=== PATIENT | female | born 1950 | race Caucasian/White ===

== ENCOUNTER 2016-12-28 19:46 | Emergency (ER) | payer OTHER ==
[~2016-12-28] VITALS: Ht 167.6 cm; Wt 58.9 kg
[~2016-12-28 19:46] MED LIST: CYTM25 PO; CYTM5 PO
[2016-12-28 19:50] VITALS: TEMP 36.8; Ht 167.6 cm; Wt 58.9 kg
[2016-12-28] MEDS ORDERED: CYTM25 PO (20:30)
[2016-12-28] MEDS ORDERED: DIPHTHERIA/TETANUS/PERTUSSIS 0.5 ML SYR/VIAL IM. ONE (20:45)
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
[2016-12-28 21:10] LABS: URINE APPEARANCE CLEAR (CLEAR); URINE BILIRUBIN NEG (NEG); URINE COLOR YELLOW; URINE NITRITE NEG (NEG); URINE SPECIFIC GRAVITY 1.021 (1.000-1.030); UROBILINOGEN NEG (NEG); ZZUR CULT IF INDIC CLEAN CATCH NO
[2016-12-28 21:12] LABS: MANUAL MICROSCOPIC REQUIRED? NO; REVIEW REQ? NO
--- NOTE | 2016-12-28 21:14 | DIAGNOSTIC IMAGING REPORT ---
LEFT RIBS UNILATERAL WITH PA CHEST CLINICAL HISTORY: left rib pain COMPARISON STUDY: Chest 02/20/2011. FINDINGS: Nondisplaced left lateral seventh and eighth rib fractures. No pneumothorax. No pleural effusions. The lungs remain mildly hyperexpanded. No focal lung consolidations. The heart is normal in size. IMPRESSION: Nondisplaced left lateral seventh and eighth rib fractures. No pneumothorax. Electronically signed by: Afshin Theodore M.D. 12/28/2016 9:12 PM Dictated Date/Time: 12/28/2016 9:10 PM
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
[2016-12-28 21:47] VITALS: BP 134/76; PULSE 68; O2SAT 98
== END 2016-12-28 21:47 | disposition home or self-care (01) ==
LOC: C.EDB 19:47 → C.EDD 21:47
DX: S22.42XA Multiple fractures of ribs, left side, initial encounter for closed fracture (principal); S80.11XA Contusion of right lower leg, initial encounter; V43.52XA Car driver injured in collision with other type car in traffic accident, initial encounter; Y92.488 Other paved roadways as the place of occurrence of the external cause; Z85.850 Personal history of malignant neoplasm of thyroid; Z79.899 Other long term (current) drug therapy

== ENCOUNTER → 2017-03-24 | Outpatient (CLI) | payer OTHER ==
[~2017-03-24] MED LIST changes: -CYTM5 PO
[2017-03-27 15:55] LABS: THYROGLOBULIN 0.4 NG/ML (2.8-40.9)
== END | disposition home or self-care (01) ==
LOC: C.LAB 11:41
DX: C73 Malignant neoplasm of thyroid gland (principal); E89.0 Postprocedural hypothyroidism; E55.9 Vitamin D deficiency, unspecified

== ENCOUNTER → 2017-07-07 | Outpatient (CLI) | payer OTHER ==
[2017-07-07 12:15] LABS: BLOOD UREA NITROGEN 17 mg/dl (7-18); CALCIUM 8.3 mg/dl (8.5-10.1); CARBON DIOXIDE 35 mmol/L (21-32); CREATININE 0.91 mg/dl (0.60-1.20); GLUCOSE 91 mg/dl (70-99); PHOSPHORUS 4.3 mg/dl (2.5-4.9); POTASSIUM 3.7 mmol/L (3.5-5.1); SODIUM 140 mmol/L (136-145)
== END | disposition home or self-care (01) ==
LOC: C.LAB 10:46
DX: C73 Malignant neoplasm of thyroid gland (principal); E55.9 Vitamin D deficiency, unspecified; E89.0 Postprocedural hypothyroidism

== ENCOUNTER → 2018-03-20 | Outpatient (CLI) | payer OTHER ==
[2018-03-20 16:10] LABS: BLOOD UREA NITROGEN 17 mg/dl (7-18); CALCIUM 8.2 mg/dl (8.5-10.1); CARBON DIOXIDE 33 mmol/L (21-32); CREATININE 0.97 mg/dl (0.60-1.20); GLUCOSE 77 mg/dl (70-99); POTASSIUM 3.7 mmol/L (3.5-5.1); SODIUM 142 mmol/L (136-145)
== END | disposition home or self-care (01) ==
LOC: C.LAB 14:55
PROVIDERS: ATTEND Internal Medicine Endocrinology, Diabetes & Metabolism
DX: C73 Malignant neoplasm of thyroid gland (principal); E55.9 Vitamin D deficiency, unspecified

== ENCOUNTER 2022-10-03 17:05 | Inpatient (IN) ==
--- NOTE | 2022-10-03 17:35 | Emergency Department Note ---
History of Present Illness General Chief complaint: Arm Pain Stated complaint: R SHOULDER DOWN ARM,REF BY DOC,POSSIBLE BLOOD IVANIA Time Seen by Provider: 10/03/22 17:13 History of Present Illness This is a 72-year-old female who presents to the emergency department via private vehicle with complaints of "red and swollen right arm". Patient states that when she woke up this morning her right arm was swollen and red. She states it is not painful, rather just stiff. 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 She had a core biopsy done on the right side of the neck 8 days ago at [facility]. She is to have a PET scan on 10/06/22 to evaluate for metastasis. She called her doctor from [facility] today to report her arm symptoms and they advised her to come to the ED. She has had an intermittent dry cough that she has attributed to the cancer but reports no shortness of breath. The cough is increased with deep breaths. Over the last few weeks she has had some periods of prolonged immobilization during travel about an 8 to 9-hour trip to [facility] as well as a 5-hour drive to [facility]. Denies history of smoking. Denies history of clots or family history of clotting disorders. Denies fever, chest pain, sore throat, congestion, hemoptysis, numbness, tingling, back or neck pain. Home Medications Medication Instructions Recorded Confirmed Type calcitriol 0.25 mcg capsule 0.25 mcg PO BID 10/04/22 10/04/22 History ergocalciferol (vitamin D2) 1,250 1,250 mcg PO .EVERY 14 DAYS 10/04/22 10/04/22 History mcg (50,000 unit) capsule (Vitamin D2) levothyroxine 88 mcg tablet 88 mcg PO DAILYBB 10/04/22 10/04/22 History Allergies Allergy/AdvReac Type Severity Reaction Status Date / Time Penicillins AdvReac Mild UPSET Verified 10/04/22 00:02 STOMACH Past Med/Surg History Medical History Thyroid cancer Surgical History Hx of neck surgery Social History Smoking Status: Unknown if ever smoked Preferred Language: [place] Feels Safe at Home: Yes Review of Systems A total of 10 systems reviewed and were otherwise negative Physical Exam Vital Signs Vital Signs - 24 hr 10/03/22 17:09 10/03/22 20:17 10/03/22 20:17 Temperature 36.8 C Temperature Source Temporal Artery Scan Pulse Rate 99 H 81 Pulse Rate [Apical] 84 Pulse Rhythm Regular Pulse Rhythm [Apical] Regular Pulse Strength [Apical] Normal Respiratory Rate 16 17 16 Respiratory Effort / Characteristics Non-Labored Spontaneous Non-Labored Spontaneous Respiratory Depth Normal Normal Blood Pressure 126/77 Blood Pressure [Left Arm] 111/69 Blood Pressure Mean 93 Blood Pressure Mean [Left Arm] 83 Pulse Oximetry 97 98 96 Oxygen Delivery Method Room Air Room Air Room Air Sepsis Recent Fever Within 48 Hours No Sepsis New/Unexplained Change in Mental Status N/A Sepsis Action Taken by Nursing No Action Required 10/03/22 20:24 10/03/22 23:29 10/03/22 23:46 Temperature Temperature Source Pulse Rate 80 Pulse Rate [Apical] 78 78 Pulse Rhythm Pulse Rhythm [Apical] Pulse Strength [Apical] Respiratory Rate 22 20 Respiratory Effort / Characteristics Non-Labored Respiratory Depth Normal Blood Pressure Blood Pressure [Left Arm] 89/60 L 100/55 L Blood Pressure Mean Blood Pressure Mean [Left Arm] 69 70 Pulse Oximetry 99 99 Oxygen Delivery Method Room Air Room Air Sepsis Recent Fever Within 48 Hours Sepsis New/Unexplained Change in Mental Status Sepsis Action Taken by Nursing 10/04/22 00:26 10/04/22 00:00 Temperature Temperature Source Pulse Rate 82 Pulse Rate [Apical] 88 Pulse Rhythm Pulse Rhythm [Apical] Pulse Strength [Apical] Respiratory Rate 20 Respiratory Effort / Characteristics Non-Labored Respiratory Depth Normal Blood Pressure Blood Pressure [Left Arm] 104/63 Blood Pressure Mean Blood Pressure Mean [Left Arm] 76 Pulse Oximetry 96 Oxygen Delivery Method Room Air Sepsis Recent Fever Within 48 Hours Sepsis New/Unexplained Change in Mental Status Sepsis Action Taken by Nursing VITAL SIGNS - Vital signs and nursing notes were reviewed. Stable and afebrile. GENERAL - 72-year-old female appearing her stated age who is in no acute distress. Communicates well with provider and answers questions appropriately. SKIN - The right upper extremity is circumferentially edematous with an erythematous/ purplish hue. No break in the integument. HEAD - NC/AT. EYES - Sclera anicteric. NOSE - Midline and without cyanosis. No epistaxis or purulent drainage noted. MOUTH/OROPHARYNX - Without perioral cyanosis. NECK - Slight prominence of the soft tissues just superior to the right clavicle and anterior to the trapezius muscle. No nuchal rigidity. LUNGS - Chest wall symmetric without accessory muscle use, intercostals retractions, or central cyanosis. Normal vesicular breath sounds CTA B/L. No wheezes, rales, or rhonchi appreciated. CARDIAC - RRR with S1/S2. No murmur, rubs, or gallops appreciated. EXTREMITIES - No clubbing or peripheral cyanosis. Unilateral RUE edema. Remainder of extremities are WNL. R radial pulse WNL. Micro Lab Analyst strength WNL bilat. RUE warm and well perfused. +5/5 strength noted in UE/LE bilaterally. NEUROLOGIC - Cranial nerves II through XII grossly intact. PSYCH - A&O, and cooperates fully with examiner. Pt is very pleasant and interacts well with examiner. Course Administered Medications Heparin Sodium/Dextrose (Heparin Sodium/Dextrose) 25,000 units in 500 mls @ 19 mls/hr IV .Q24H [facility]; Protocol Stop: 11/02/22 22:14 Last Admin: 10/03/22 22:45 Dose: 950 units/hr, 19 mls/hr Documented By: LAURA Co-signed By: NAKIA Discontinued Medications Heparin Sodium (Porcine) (Heparin Sod (Porcine) 1000 Unit/Ml) 1 units IV NOW ONE Stop: 10/03/22 22:09 Last Admin: 10/03/22 22:45 Dose: 4,000 units Documented By: LAURA Co-signed By: NAKIA Ioversol (Optiray 320 500ml) 106 ml IV ONCE ONE Stop: 10/03/22 20:04 Last Admin: 10/03/22 20:03 Dose: 106 ml Documented By: LUISA Medical Decision Making Laboratory Data 10/03/22 19:50 10/03/22 18:36 Lab Results 10/03/22 10/03/22 10/03/22 Range/Units 18:36 18:36 18:36 WBC Cancelled RBC Cancelled Hgb Cancelled Hct Cancelled MCV Cancelled MCH Cancelled MCHC Cancelled RDW Std Deviation Cancelled RDW Coeff of Isaura Cancelled Plt Count Cancelled MPV Cancelled Immature Gran % (Auto) Cancelled Neut % (Auto) Cancelled Lymph % (Auto) Cancelled Wharton % (Auto) Cancelled Eos % (Auto) Cancelled Baso % (Auto) Cancelled Neut # (Auto) Cancelled Lymph # (Auto) Cancelled Wharton # (Auto) Cancelled Eos # (Auto) Cancelled Baso # (Auto) Cancelled Immature Gran # (Auto) Cancelled Absolute Nucleated RBC Cancelled Nucleated RBC % (auto) Cancelled Neutrophils % (Manual) Cancelled Band Neutrophils % Cancelled Lymphocytes % (Manual) Cancelled Prolymphocyte % Cancelled Reactive Lymphs % (Man) Cancelled Monocytes % (Manual) Cancelled Eosinophils % (Manual) Cancelled Basophils % (Manual) Cancelled Metamyelocytes % (Man) Cancelled Myelocytes % (Man) Cancelled Promyelocytes % (Man) Cancelled Blast Cells % (Manual) Cancelled Plasma Cell % (Manual) Cancelled Other Cells % Cancelled Nucleated RBC % Cancelled Neutrophils # (Manual) Cancelled Band Neutrophils # Cancelled Total Absolute Neuts Cancelled Lymphocytes # (Manual) Cancelled Prolymphocyte # Cancelled Reactive Lymphs # Cancelled Total Abs Lymphocytes Cancelled Monocytes # (Manual) Cancelled Eosinophils # (Manual) Cancelled Basophils # (Manual) Cancelled Metamyelocytes # (Man) Cancelled Myelocytes # (Manual) Cancelled Promyelocytes # (Man) Cancelled Blast Cells # (Man) Cancelled Plasma Cell # (Manual) Cancelled Other Cells # Cancelled Nucleated RBCs # (Man) Cancelled Hypersegmented Neuts Cancelled Hyposegmented Neuts Cancelled Hypogranular Neuts Cancelled Large Granular Lymphs Cancelled # Lrg Granular Lymphs Cancelled Hairy Cells Cancelled Smudge Cells Cancelled Toxic Granulation Cancelled Toxic Vacuolation Cancelled Dohle Bodies Cancelled Yaw Rods Cancelled Platelet Estimate Cancelled Hypogranular Platelets Cancelled Giant Platelets Cancelled Platelet Satelliting Cancelled RBC Morphology Cancelled Polychromasia Cancelled Hypochromasia Cancelled Poikilocytosis Cancelled Basophilic Stippling Cancelled Anisocytosis Cancelled Microcytosis Cancelled Macrocytosis Cancelled Spherocytes Cancelled Pappenheimer Bodies Cancelled Sickle Cells Cancelled Target Cells Cancelled Tear Drop Cells Cancelled Ovalocytes Cancelled Stomatocytes Cancelled [place] Bodies Cancelled Echinocytes Cancelled Acanthocytes (Spur) Cancelled Rouleaux Cancelled RBC Agglutinates Cancelled Schistocytes Cancelled Sezary Cell Cancelled PT 10.6 (9.0-12.0) Seconds INR 1.0 (0.9-1.1) APTT 21.2 (21.0-31.0) Seconds PTT Ratio 0.8 Sodium 141 (136-145) mmol/L Potassium 3.6 (3.5-5.1) mmol/L Chloride 101 (98-107) mmol/L Carbon Dioxide 36 H (21-32) mmol/L Anion Gap 4 (3-11) BUN 16 (6-23) mg/dl Creatinine 0.92 (0.6-1.2) mg/dl Est Cr Clr Drug Dosing 46.9 ml/min Est GFR ( Amer) 72.1 ml/min Est GFR (Non-Af Amer) 62.2 ml/min BUN/Creatinine Ratio 17.4 (10-20) Glucose 98 (70-99(Fasting)) mg/dl Calcium 8.7 (8.5-10.1) mg/dl Total Bilirubin 0.9 (0.2-1.0) mg/dl AST 16 (13-39) U/L ALT 10 (7-52) U/L Alkaline Phosphatase 88 (34-104) U/L Troponin I High Sens 3.7 (0-14) pg/ml Total Protein 7.8 (6.0-8.3) gm/dl Albumin 4.6 (3.4-5.0) gm/dl Globulin 3.2 (2.5-4.0) gm/dl Albumin/Globulin Ratio 1.4 (0.9-2) SARS-CoV-2, RNA, NAAT (NEGATIVE) Blood Parasites ID Cancelled 10/03/22 10/03/22 Range/Units 19:50 20:15 WBC 5.81 RBC 4.44 Hgb 14.0 Hct 41.3 MCV 93.0 MCH 31.5 MCHC 33.9 RDW Std Deviation 43.1 RDW Coeff of Isaura 12.6 Plt Count 159 MPV 10.4 Immature Gran % (Auto) 0.2 Neut % (Auto) 71.5 Lymph % (Auto) 20.5 Wharton % (Auto) 7.2 Eos % (Auto) 0.3 Baso % (Auto) 0.3 Neut # (Auto) 4.15 Lymph # (Auto) 1.19 L Wharton # (Auto) 0.42 Eos # (Auto) 0.02 Baso # (Auto) 0.02 Immature Gran # (Auto) 0.01 Absolute Nucleated RBC Nucleated RBC % (auto) Neutrophils % (Manual) Band Neutrophils % Lymphocytes % (Manual) Prolymphocyte % Reactive Lymphs % (Man) Monocytes % (Manual) Eosinophils % (Manual) Basophils % (Manual) Metamyelocytes % (Man) Myelocytes % (Man) Promyelocytes % (Man) Blast Cells % (Manual) Plasma Cell % (Manual) Other Cells % Nucleated RBC % Neutrophils # (Manual) Band Neutrophils # Total Absolute Neuts Lymphocytes # (Manual) Prolymphocyte # Reactive Lymphs # Total Abs Lymphocytes Monocytes # (Manual) Eosinophils # (Manual) Basophils # (Manual) Metamyelocytes # (Man) Myelocytes # (Manual) Promyelocytes # (Man) Blast Cells # (Man) Plasma Cell # (Manual) Other Cells # Nucleated RBCs # (Man) Hypersegmented Neuts Hyposegmented Neuts Hypogranular Neuts Large Granular Lymphs # Lrg Granular Lymphs Hairy Cells Smudge Cells Toxic Granulation Toxic Vacuolation Dohle Bodies Yaw Rods Platelet Estimate Hypogranular Platelets Giant Platelets Platelet Satelliting RBC Morphology Polychromasia Hypochromasia Poikilocytosis Basophilic Stippling Anisocytosis Microcytosis Macrocytosis Spherocytes Pappenheimer Bodies Sickle Cells Target Cells Tear Drop Cells Ovalocytes Stomatocytes [place] Bodies Echinocytes Acanthocytes (Spur) Rouleaux RBC Agglutinates Schistocytes Sezary Cell PT (9.0-12.0) Seconds INR (0.9-1.1) APTT (21.0-31.0) Seconds PTT Ratio Sodium (136-145) mmol/L Potassium (3.5-5.1) mmol/L Chloride (98-107) mmol/L Carbon Dioxide (21-32) mmol/L Anion Gap (3-11) BUN (6-23) mg/dl Creatinine (0.6-1.2) mg/dl Est Cr Clr Drug Dosing ml/min Est GFR ( Amer) ml/min Est GFR (Non-Af Amer) ml/min BUN/Creatinine Ratio (10-20) Glucose (70-99(Fasting)) mg/dl Calcium (8.5-10.1) mg/dl Total Bilirubin (0.2-1.0) mg/dl AST (13-39) U/L ALT (7-52) U/L Alkaline Phosphatase (34-104) U/L Troponin I High Sens (0-14) pg/ml Total Protein (6.0-8.3) gm/dl Albumin (3.4-5.0) gm/dl Globulin (2.5-4.0) gm/dl Albumin/Globulin Ratio (0.9-2) SARS-CoV-2, RNA, NAAT NEGATIVE (NEGATIVE) Blood Parasites ID Imaging Data Radiologist's Impression: Venous Doppler Study 10/03/22 17:30 ULTRASOUND RIGHT UPPER EXTREMITY VENOUS CLINICAL HISTORY: Right arm pain and swelling. Erythema. COMPARISON STUDY: No priors. TECHNIQUE: Real-time, grayscale, and color Doppler sonography of the deep veins of the right upper extremity is performed. Compression and augmentation were utilized. FINDINGS: There is nearly occlusive to occlusive deep venous thrombosis identified in the right subclavian and axillary veins. The brachial veins and right internal jugular vein are patent and normally compressible. The cephalic and basilic veins are clear. The visualized radial and ulnar veins are patent. IMPRESSION: There is nearly occlusive to occlusive deep venous thrombosis seen in the right subclavian and axillary veins. ACT 112: Negative or not required by law. Electronically signed by: Burton Rothman M.D. 10/03/2022 6:[address] 10/03/22 18:21 Exam(s): CT NECK With Contrast EXAM: CT Neck With Intravenous Contrast CLINICAL HISTORY: Reason for exam: R arm edema. Thyroid carcinoma.. TECHNIQUE: Axial computed tomography images of the neck with intravenous contrast. Automated exposure control was utilized for the study. A dose lowering technique was utilized adhering to the principles of ALARA. CONTRAST: Contrast must be dictated COMPARISON: None. FINDINGS: Oropharynx: Unremarkable. No significant tonsillar enlargement. No peritonsillar abscess. Hypopharynx: Unremarkable. Larynx: Unremarkable. Normal epiglottis. Trachea: Patent trachea. Retropharyngeal space: Unremarkable. Submandibular/parotid glands: Unremarkable. Glands are normal in size. Thyroid: Not visualized suggestive of prior resection. Bones/joints: Degenerative disease of the spine with normal cervical lordosis. No acute fracture. Soft tissues: At the level of the right paratracheal region there is a soft tissue density with ill-defined margins extending to the paratracheal soft tissues, right anterolateral prevertebral region and right supraclavicular space. This measures approximately 2.9 x 3.1 cm. Differential diagnosis includes recurrent carcinoma versus postoperative inflammatory process. This is noted to the level of the right medial supraclavicular region. Vasculature: Nonvisualized right-sided jugular vein from presumed prior surgical resection. Normal aortic arch and origin of great vessels. Normal bilateral carotid and vertebral arteries. Normal bilateral subclavian arteries. Lymph nodes: There is a small right-sided lymph node in the lower neck just posterior to the sternocleidomastoid muscle measuring 8.5 mm. No severe lymphadenopathy seen. Sinuses: Minimal mucosal thickening of bilateral maxillary sinuses, likely sequela of prior sinusitis. Lung apices: Unremarkable as visualized. IMPRESSION: 1. Questionable recurrent neoplasm involving the right paratracheal region versus postoperative inflammatory changes. If indicated, these findings may be further assessed with MRI of the neck with intravenous contrast or PET scan evaluation in the nonacute setting. 2. Status post right jugular vein resection otherwise normal CT angiogram of the neck arteries with no severe stenosis, occlusion or dissection noted. Electronically signed by: Tomasa West MD 10/03/22 21:31 PM Chest CTA 10/03/22 18:50 Exam(s): CTA CHEST EXAM: CT Angiography Chest With Intravenous Contrast CLINICAL HISTORY: Reason for exam: RUE DVT, cough with inspiration. TECHNIQUE: Axial computed tomographic angiography images of the chest with intravenous contrast. Automated exposure control was utilized for the study. A dose lowering technique was utilized adhering to the principles of ALARA. MIP reconstructed images were created and reviewed. COMPARISON: None. FINDINGS: Pulmonary arteries: Unremarkable. No pulmonary embolism. Aorta: No acute findings. No thoracic aortic aneurysm. Lungs: Left lower lobe atelectasis. Pleural space: Mild biapical pleural thickening with subpleural scarring versus atelectasis. Remainder of the lung bases are clear. No significant effusion. No pneumothorax. Heart: Unremarkable. No cardiomegaly. No significant pericardial effusion. No evidence of RV dysfunction. Bones/joints: Degenerative disease of the spine. No acute fracture. No dislocation. Soft tissues: Nonspecific soft tissue density in the lower neck just above the supraclavicular region. This is described in detail in the accompanying CT of the neck report. Lymph nodes: Unremarkable. No enlarged lymph nodes. Liver: Enhancing lesion with peripheral nodular enhancement within the anterior aspect of the left liver lobe measuring 1.3 cm, likely small hemangioma. Gallbladder and bile ducts: Contracted gallbladder. Otherwise unremarkable biliary system. IMPRESSION: Minimal atelectasis otherwise no acute cardiopulmonary disease. Electronically signed by: Tomasa West MD 10/03/22 21:19 PM [facility] Narrative Patient was seen and evaluated as above in room D05. I did review pertinent previous visits and patient history. After obtaining a thorough history and physical examination the above work up was performed. Patient presents to the ED today for evaluation of atraumatic right upper extremity edema and erythema. On examination there is more of a purplish hue to the right upper extremity. She is well-perfused with intact right radial pulse. Micro Lab Analyst strength within normal limits. Right upper extremity is warm and not cool to the touch. She is able to appreciate light touch throughout the right upper extremity without defi cit. Preserved active range of motion of the right upper extremity. No chest pain or shortness of breath. However, when the patient does inhale she coughs. Options of care were discussed with the patient. IV access was established. Labs were drawn. Right upper extremity Doppler was obtained. There is a nearly occlusive to occlusive DVT seen in the right subclavian and axillary veins. This does clinically correlate with the patient's right upper extremity examination. Labs reveal no leukocytosis or concerning anemia. No emergent metabolic disturbance. Coags are normal. Troponin is within normal limits. COVID testing negative. With the patient having the right upper extremity DVT and also cough with inspiration I found it reasonable to proceed with CTA of the chest but also IV contrasted neck CT to evaluate for any compressive etiology to the patient's right upper extremity DVT noting malignancy near that region and to further vasculature in that region. Results of these are as above. I did call the radiologist to review the patient's clinical presentation and findings on ultrasound. At this time with the patient having a right upper extremity DVT I do believe that anticoagulants are indicated. I thoroughly discussed benefit versus risk of anticoagulation with the patient. I did have a thorough discussion regarding options of care as well as benefit versus risk of anticoagulation with the patient and at bedside prior to initiation of anticoagulation. I answered all of their questions. I also discussed this with the attending physician. At this time it is felt that the benefit of anticoagulation outweighs risk. We will proceed with IV heparin. Patient denies any recent trauma or injury. I do believe that she is far enough out from her biopsy date from a bleeding standpoint. No headaches. She denies any GI bleeding or history of GI bleeding. At this time no contraindications to anticoagulations have been identified. I do believe that she would benefit from inpatient management. Case discussed with the hospitalist service. Please refer to further documentation regarding her stay. While in the department, I personally reevaluated the patient several times and each time the patient was found to be resting comfortably. GCS: 15 In the evaluation and treatment of this patient the following differential diagnoses were entertained: DVT, cellulitis, SVC syndrome, thoracic outlet syndrome, among others. Impression & Plan Acute deep vein thrombosis (DVT) of right upper extremity, Edema of right upper extremity Discharge Plan Visit Data Chief Complaint: Arm Pain Stated Complaint: R SHOULDER DOWN ARM,REF BY DOC,POSSIBLE BLOOD IVANIA ED Provider: Elia Mireles ED Midlevel Provider: Juan Yoder Discharge Problem: Acute deep vein thrombosis (DVT) of right upper extremity, Edema of right upper extremity Patient Disposition: Admitted As Inpatient Condition: Good Forms Stand Alone Forms: [email or web address] Prescriptions Prescriptions: No Action levothyroxine 88 mcg tablet 88 mcg PO DAILYBB ergocalciferol (vitamin D2) [Vitamin D2] 1,250 mcg (50,000 unit) capsule 1,250 mcg PO .EVERY 14 DAYS calcitriol 0.25 mcg capsule 0.25 mcg PO BID Referrals Referrals: Jb Currie Jr, DO [Physician] -
--- NOTE | 2022-10-03 18:39 | Ultrasound Report ---
ULTRASOUND RIGHT UPPER EXTREMITY VENOUS CLINICAL HISTORY: Right arm pain and swelling. Erythema. COMPARISON STUDY: No priors. TECHNIQUE: Real-time, grayscale, and color Doppler sonography of the deep veins of the right upper ex tremity is performed. Compression and augmentation were utilized. FINDINGS: There is nearly occlusive to occlusive deep venous thrombosis identified in the right subcl shahab and axillary veins. The brachial veins and right internal jugular vein are patent and normally compressible. The cephalic and basilic veins are clear. The visualized radial and ulnar veins are pa tent. IMPRESSION: There is nearly occlusive to occlusive deep venous thrombosis seen in the right subclavia n and axillary veins. ACT 112: Negative or not required by law. Electronically signed by: Burton Rothman M.D. 10/03/2022 6:37 PM
[2022-10-03 19:21] LABS: Albumin Globulin Ratio 1.4 (0.9-2); Albumin Level 4.6 gm/dl (3.4-5.0); BUN Creatinine Ratio 17.4 (10-20); Bilirubin,Total 0.9 mg/dl (0.2-1.0); Calcium 8.7 mg/dl (8.5-10.1); Creatinine Clr Calc Pharmacy 46.9 ml/min; Est GFR (African American) 72.1 ml/min; Est GFR (Non-African American) 62.2 ml/min; Globulin 3.2 gm/dl (2.5-4.0); Potassium 3.6 mmol/L (3.5-5.1); Total Protein 7.8 gm/dl (6.0-8.3)
[2022-10-03 19:39] LABS: Partial Thromboplastin Ratio 0.8; Partial Thromboplastin Time 21.2 Seconds (21.0-31.0); Prothrombin Time 10.6 Seconds (9.0-12.0)
[2022-10-03] MEDS ORDERED: OPTIRAY 320 500ml IV ONE (20:03)
[2022-10-03 20:07] LABS: Basophils # (auto) 0.02 K/uL (0-0.2); Basophils % (auto) 0.3 %; Eosinophils # (auto) 0.02 K/uL (0-0.50); Eosinophils % (auto) 0.3 %; Hematocrit (blood only) 41.3 % (37.0-47.0); Immature Granulocytes # (auto) 0.01 K/uL (0.01-0.20); Immature Granulocytes % (auto) 0.2 %; Lymphocytes # (auto) 1.19 K/uL (1.2-3.4); Lymphocytes % (auto) 20.5 %; Mean Corpuscular Hemoglobin 31.5 pg (25.0-34.0); Mean Corpuscular Hgb Conc 33.9 g/dL (32.0-36.0); Mean Platelet Volume 10.4 fL (9.4-12.4); Monocytes # (auto) 0.42 K/uL (0.11-0.59); Monocytes % (auto) 7.2 %; Neutrophils # (auto) 4.15 K/uL (1.40-6.50); Neutrophils % (auto) 71.5 %; Platelet Count 159 K/uL (130-400); RDW Coefficient of Variation 12.6 % (11.5-14.5); RDW Standard Deviation 43.1 fL (36.4-46.3); Red Blood Count 4.44 M/uL (4.20-5.40); White Blood Count 5.81 K/ul (4.8-10.8)
[2022-10-03 20:20] LABS: Troponin I High Sensitivity 3.7 pg/ml (0-14)
--- NOTE | 2022-10-03 21:20 | CT Scan Report ---
Exam(s): CTA CHEST EXAM: CT Angiography Chest With Intravenous Contrast CLINICAL HISTORY: Reason for exam: RUE DVT, cough with inspiration. TECHNIQUE: Axial computed tomographic angiography images of the chest with intravenous contrast. Automated exposure control was utilized for the study. A dose lowering technique was utilized adhering to the principles of ALARA. MIP reconstructed images were created and reviewed. COMPARISON: None. FINDINGS: Pulmonary arteries: Unremarkable. No pulmonary embolism. Aorta: No acute findings. No thoracic aortic aneurysm. Lungs: Left lower lobe atelectasis. Pleural space: Mild biapical pleural thickening with subpleural scarring versus atelectasis. Remainder of the lung bases are clear. No significant effusion. No pneumothorax. Heart: Unremarkable. No cardiomegaly. No significant pericardial effusion. No evidence of RV dysfunction. Bones/joints: Degenerative disease of the spine. No acute fracture. No dislocation. Soft tissues: Nonspecific soft tissue density in the lower neck just above the supraclavicular region. This is described in detail in the accompanying CT of the neck report. Lymph nodes: Unremarkable. No enlarged lymph nodes. Liver: Enhancing lesion with peripheral nodular enhancement within the anterior aspect of the left liver lobe measuring 1.3 cm, likely small hemangioma. Gallbladder and bile ducts: Contracted gallbladder. Otherwise unremarkable biliary system. IMPRESSION: Minimal atelectasis otherwise no acute cardiopulmonary disease. Electronically signed by: Tomasa West MD 10/03/22 21:19 PM
--- NOTE | 2022-10-03 21:32 | CT Scan Report ---
Exam(s): CT NECK With Contrast EXAM: CT Neck With Intravenous Contrast CLINICAL HISTORY: Reason for exam: R arm edema. Thyroid carcinoma.. TECHNIQUE: Axial computed tomography images of the neck with intravenous contrast. Automated exposure control was utilized for the study. A dose lowering technique was utilized adhering to the principles of ALARA. CONTRAST: Contrast must be dictated COMPARISON: None. FINDINGS: Oropharynx: Unremarkable. No significant tonsillar enlargement. No peritonsillar abscess. Hypopharynx: Unremarkable. Larynx: Unremarkable. Normal epiglottis. Trachea: Patent trachea. Retropharyngeal space: Unremarkable. Submandibular/parotid glands: Unremarkable. Glands are normal in size. Thyroid: Not visualized suggestive of prior resection. Bones/joints: Degenerative disease of the spine with normal cervical lordosis. No acute fracture. Soft tissues: At the level of the right paratracheal region there is a soft tissue density with ill-defined margins extending to the paratracheal soft tissues, right anterolateral prevertebral region and right supraclavicular space. This measures approximately 2.9 x 3.1 cm. Differential diagnosis includes recurrent carcinoma versus postoperative inflammatory process. This is noted to the level of the right medial supraclavicular region. Vasculature: Nonvisualized right-sided jugular vein from presumed prior surgical resection. Normal aortic arch and origin of great vessels. Normal bilateral carotid and vertebral arteries. Normal bilateral subclavian arteries. Lymph nodes: There is a small right-sided lymph node in the lower neck just posterior to the sternocleidomastoid muscle measuring 8.5 mm. No severe lymphadenopathy seen. Sinuses: Minimal mucosal thickening of bilateral maxillary sinuses, likely sequela of prior sinusitis. Lung apices: Unremarkable as visualized. IMPRESSION: 1. Questionable recurrent neoplasm involving the right paratracheal region versus postoperative inflammatory changes. If indicated, these findings may be further assessed with MRI of the neck with intravenous contrast or PET scan evaluation in the nonacute setting. 2. Status post right jugular vein resection otherwise normal CT angiogram of the neck arteries with no severe stenosis, occlusion or dissection noted. Electronically signed by: Tomasa West MD 10/03/22 21:31 PM
[2022-10-03] MEDS ORDERED: Heparin IV Adult Wt-Based Standard WITH Bolus Protocol IV STA (21:53)
[2022-10-03] MEDS ORDERED: HEPARIN SOD (PORCINE) 1000 UNIT/ML IV ONE (22:08)
[2022-10-03] MEDS ORDERED: HEPARIN SODIUM/DEXTROSE 25,000 UNITS/500 ML BAG IV SCH (22:15)
[2022-10-04] MEDS ORDERED: POLYETHYLENE (MIRALAX) 17 GM PACK PO PRN (04:44)
[2022-10-04] MEDS ORDERED: ACETAMINOPHEN 325 MG TAB PO PRN (04:44)
--- NOTE | 2022-10-04 05:23 | History and Physical Report ---
DATE OF ADMISSION: 10/04/2022. CHIEF COMPLAINT: Right arm swelling and pain. HISTORY OF PRESENT ILLNESS: This is a 72-year-old female with past medical history significant for thyroid cancer, following up with [facility], had thyroidectomy, history of postprocedure hypothyroidism, hyperparathyroidism, iron deficiency anemia, who presents with right upper extremity swelling. When she woke up in the morning, she noticed swelling in the right upper extremity and came here and the imaging studies are showing nearly occlusive to occlusive deep vein thrombosis in the right subclavian and axillary veins. CT of soft tissues of neck is showing questionable recurrent neoplasm involving the right paratracheal region versus postoperative inflammatory changes. The patient states she had four thyroid neck surgeries, first was in early 1999 when it was benign, and again had three more surgeries in 2008, 2012, and 2013. In 2013, was done in [facility] and since she is following with [facility]. 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 Currently resting comfortably and hemodynamically stable. She says she used to have nausea earlier, but that has resolved and she has some on and off cough. Appetite is not that great. She says no difficulty swallowing when she is eating. Denies any blurred visions. Currently, no headache, no runny nose, no sore throat. Denies any chest pain. When she takes deep breaths, she has some cough. No abdominal pain. Normal bowel and bladder movements. Denies any blood in the stools. No swelling in the legs. ALLERGIES: PENICILLINS. PAST MEDICAL HISTORY: As mentioned above. PAST SURGICAL HISTORY: Colonoscopy with biopsy, mole removed from the leg, removal of thyroid lesion. MEDICATIONS: Currently taking calcitriol 0.25 mcg p.o. b.i.d., vitamin D 1250 mcg p.o. daily, levothyroxine 88 mcg p.o. daily. FAMILY HISTORY: Significant for father had heart attack at 86; brother had prostate cancer; son has thyroid cancer; brother has liposarcoma; uncle has pancreatic cancer; maternal uncle has heart disorder. SOCIAL HISTORY: , no smoking. Alcohol occasional. No drug use. REVIEW OF SYSTEMS: As per HPI. Rest of the review of systems is negative. PHYSICAL EXAMINATION: GENERAL: The patient is thin and frail, not in acute distress. VITAL SIGNS: Temperature 36.8, pulse 86, respiratory rate 20, blood pressure 89/63, oxygen 98% on room air. HEENT: Pupils equal, round and reactive to light. Oral mucosa moist. NECK: No JVD, no neck masses. CARDIOVASCULAR: S1 and S2 heard. Regular rate and rhythm. No murmur, no gallop. RESPIRATORY SYSTEM: Normal AP diameter. No accessory muscle use. No wheezing, no crackles. ABDOMEN: Soft, bowel sounds present, nontender, no distention. CENTRAL NERVOUS SYSTEM: Alert and oriented. Speech is clear. No facial droop. Insight is okay, obeys commands. Moves extremities. EXTREMITIES: Right upper extremity is swollen up to the elbow region. No obvious tenderness seen. LABORATORY DATA: WBC 5.8, hemoglobin 14, hematocrit 41.3, platelets 159. PT 10.6, INR 1, APTT 21.2. Sodium 141, potassium 3.6, chloride 101, bicarbonate 36, BUN 16, creatinine 0.9, serum glucose 98, calcium 8.7, total bilirubin 0.9, AST 16, ALT 10, alkaline phosphatase 88. Troponin I high sensitivity 3.7. SARS-CoV-2 rapid test negative. IMAGING DATA: CTA chest, mild atelectasis, otherwise no acute cardiopulmonary disease. Soft tissue neck CT with IV contrast, questionable recurrent neoplasm involving the right paratracheal region versus postoperative inflammatory change. If indicated, these findings may be further assessed with MRI of the neck with intravenous contrast or PET scan evaluation in a nonacute setting, status post right jugular vein resection. Otherwise, normal CT angiogram of the neck arteries with no severe stenosis, occlusion, or dissection noted. Venous Doppler of the right upper extremity, nearly occlusive to occlusive deep vein thrombosis seen in the right subclavian and axillary veins. ASSESSMENT AND PLAN: This is a 72-year-old female who presents with right upper extremity swelling and found to have deep venous thrombosis. 1. Right upper extremity deep venous thrombosis: Started on IV heparin. For now, we will monitor in the hospital. 2. History of recurrent thyroid cancer: Status post surgery. Seems recurrence. Followup PET scan with [facility]. 3. Postsurgical hypothyroidism: Continue Synthroid. 4. Deep venous thrombosis prophylaxis: On IV heparin. DISPOSITION: Monitor in the hospital. Expect to discharge home and follow with her family doctor and [facility]. Job ID: [id number] KAYLI
[2022-10-04 06:20] LABS: Basophils # (auto) 0.01 K/uL (0-0.2); Basophils % (auto) 0.2 %; Eosinophils # (auto) 0.03 K/uL (0-0.50); Eosinophils % (auto) 0.5 %; Hematocrit (blood only) 41.5 % (37.0-47.0); Hemoglobin 13.8 g/dl (12.0-16.0); Immature Granulocytes # (auto) 0.01 K/uL (0.01-0.20); Immature Granulocytes % (auto) 0.2 %; Lymphocytes # (auto) 1.57 K/uL (1.2-3.4); Lymphocytes % (auto) 28.6 %; Mean Corpuscular Hemoglobin 31.7 pg (25.0-34.0); Mean Corpuscular Hgb Conc 33.3 g/dL (32.0-36.0); Mean Corpuscular Volume 95.2 fL (80.0-100.0); Mean Platelet Volume 10.5 fL (9.4-12.4); Monocytes # (auto) 0.38 K/uL (0.11-0.59); Monocytes % (auto) 6.9 %; Neutrophils # (auto) 3.48 K/uL (1.40-6.50); Neutrophils % (auto) 63.6 %; Platelet Count 157 K/uL (130-400); RDW Coefficient of Variation 12.7 % (11.5-14.5); RDW Standard Deviation 44.2 fL (36.4-46.3); Red Blood Count 4.36 M/uL (4.20-5.40); White Blood Count 5.48 K/ul (4.8-10.8)
[2022-10-04 06:23] LABS: BUN Creatinine Ratio 16.9 (10-20); Calcium 8.3 mg/dl (8.5-10.1); Creatinine Clr Calc Pharmacy 48.4 ml/min; Est GFR (Non-African American) 64.7 ml/min; Magnesium 2.2 mg/dl (1.7-2.4); Potassium 3.5 mmol/L (3.5-5.1)
[2022-10-04] MEDS ORDERED: LEVOTHYROXINE SODIUM 88 MCG TABLET PO SCH ×2 (06:30→10:30)
[2022-10-04 06:58] LABS: Partial Thromboplastin Ratio > 5.1
[2022-10-04 07:13] LABS: Partial Thromboplastin Time > 139.0 Seconds (21.0-31.0)
[2022-10-04] MEDS ORDERED: Nursing to Pharmacy Communication SCH (07:30)
[2022-10-04] MEDS ORDERED: CALCITRIOL 0.25 MCG CAPSULE PO SCH (09:00)
[2022-10-04 10:15] LABS: Partial Thromboplastin Ratio 2.1
[2022-10-04 10:30] LABS: Partial Thromboplastin Time 56.7 Seconds (21.0-31.0)
[2022-10-04] MEDS ORDERED: GADOBUTROL 65ML VIAL IV ONE (13:49)
--- NOTE | 2022-10-04 14:06 | Magnetic Resonance Report ---
MRI OF THE BRAIN COMBO CLINICAL HISTORY: Thyroid cancer. Metastatic survey. COMPARISON STUDY: No priors. TECHNIQUE: MRI of the brain was performed utilizing various T1 and T2-weighted sequences in the axial , sagittal, and coronal planes. Contrast-enhanced sequences were acquired following the administratio n of 5.5 cc of Gadavist. FINDINGS: Brain parenchyma: There is age-related involutional change noting mild subcortical and periventricula r microangiopathic disease. There is no hemorrhage or mass effect. There is no restricted diffusion t o suggest acute ischemia. No enhancing mass lesion is identified on the postcontrast images. Meyer-whi te matter differentiation is preserved. No extra-axial fluid collection is seen. The cerebellar tonsi ls are normal in configuration. Ventricles, sulci, and cisterns: Prominent secondary to involutional change. Pituitary and sella: Unremarkable. Intracranial vasculature: Normal flow voids are maintained at the skull base. Orbits: The bony orbits are grossly intact. Orbital contents are normal in appearance. Sinuses and mastoids: Clear. Calvarium: Unremarkable. Cervical cord: Partially visualized cervical spinal cord is normal in morphology and signal intensity . Soft tissues: A 13 mm enhancing soft tissue lesion is suggested within or adjacent to the left paroti d gland on coronal image #11. IMPRESSION: 1. No acute intracranial abnormality is identified. 2. Specifically, there is no evidence of intracranial metastatic disease. 3. Question a 13 mm enhancing soft tissue lesion within or adjacent to the left parotid gland. Ultras ound correlation is recommended. ACT 112: Negative or not required by law. Electronically signed by: Burton Rothman M.D. 10/04/2022 2:04 PM
[2022-10-04] MEDS ORDERED: APIXABAN 5 MG TABLET PO STA (15:11)
[2022-10-04] MEDS ORDERED: HEPARIN STOP ORDER ONE (15:15)
--- NOTE | 2022-10-04 15:21 | Discharge Summary ---
Discharge Summary Date of Service October 04, 2022 Notes For Next Care Provider Patient diagnosed with nearly occlusive right subclavian and axillary DVT. Started on IV heparin and transitioned to Eliquis at discharge. Duration of anticoagulation will need to be determined. MRI obtained to r/o any brain mets which was negative, but did reveal 13mm lesion adjacent to L parotid. This may need further Ultrasound evaluation. Pt will follow up at [facility] for PET CT on 10/06. Medication Changes From Visit Started on Eliquis 10 mg twice daily for 7 days and then 5 mg twice daily. Duration of anticoagulation will need to be determined by primary care provider or oncologist. Admission HPI Per Admitting Provider HISTORY OF PRESENT ILLNESS: This is a 72-year-old female with past medical history significant for thyroid cancer, following up with [facility], had thyroidectomy, history of postprocedure hypothyroidism, hyperparathyroidism, iron deficiency anemia, who presents with right upper extremity swelling. When she woke up in the morning, she noticed swelling in the right upper extremity and came here and the imaging studies are showing nearly occlusive to occlusive deep vein thrombosis in the right subclavian and axillary veins. CT of soft tissues of neck is showing questionable recurrent neoplasm involving the right paratracheal region versus postoperative inflammatory changes. The patient states she had four thyroid neck surgeries, first was in early 1999 when it was benign, and again had three more surgeries in 2008, 2012, and 2013. In 2013, was done in [facility] and since she is following with [facility]. Then again she says in 2020, her labs showed the cancer is coming back and she recently had biopsy done in 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 Currently resting comfortably and hemodynamically stable. She says she used to have nausea earlier, but that has resolved and she has some on and off cough. Appetite is not that great. She says no difficulty swallowing when she is eating. Denies any blurred visions. Currently, no headache, no runny nose, no sore throat. Denies any chest pain. When she takes deep breaths, she has some cough. No abdominal pain. Normal bowel and bladder movements. Denies any blood in the stools. No swelling in the legs. Admission Exam Per Admitting Provider PHYSICAL EXAMINATION: GENERAL: The patient is thin and frail, not in acute distress. VITAL SIGNS: Temperature 36.8, pulse 86, respiratory rate 20, blood pressure 89/63, oxygen 98% on room air. HEENT: Pupils equal, round and reactive to light. Oral mucosa moist. NECK: No JVD, no neck masses. CARDIOVASCULAR: S1 and S2 heard. Regular rate and rhythm. No murmur, no gallop. RESPIRATORY SYSTEM: Normal AP diameter. No accessory muscle use. No wheezing, no crackles. ABDOMEN: Soft, bowel sounds present, nontender, no distention. CENTRAL NERVOUS SYSTEM: Alert and oriented. Speech is clear. No facial droop. Insight is okay, obeys commands. Moves extremities. EXTREMITIES: Right upper extremity is swollen up to the elbow region. No obvious tenderness seen. Principal Dx & Hospital Course #1 = Principal Diagnosis (1) Acute deep vein thrombosis (DVT) of right upper extremity: (2) Edema of right upper extremity: Plan This is a 72-year-old female who presented to ED secondary to 2 days of swelling to right upper extremity. Of significance patient has past history of thyroid cancer. She follows DR. Oneal manager integration at [facility]. Her initial cancer journey started back in 2000 when she was found to have a tumor in her neck in which biopsy revealed was benign. In 2008 lesion was found and she underwent total thyroidectomy. Since then she has been on thyroid replacement. In 2012 thyroid cancer returned and she underwent radioactive iodine treatment at [facility]. In 2013 she had additional biopsy which pathology revealed noncancerous. Most recently patient has been undergoing surveillance until new lesion was discovered in February 2022. 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 This Sunday she is scheduled to have a PET CT scan and on October 23 she will follow-up with Dr. Hernandez advanced cancer care at [facility]. Approximately 2 days ago she noted increased swelling to her right upper extremity. She presented to ED last e vening and it was determined she had a nearly occlusive to occlusive right subclavian axillary vein DVT. She was initiated on IV heparin. [facility] and felt that if no evidence of brain metastases she would be a fine candidate for Eliquis. She underwent brain MRI with and without contrast which was negative for any metastatic lesions but did reveal a 13 mm left lesion adjacent to parotid gland. It is recommended to have ultrasound for further work-up. Patient states she recently followed with surgeon in [place] out of [place] and recently underwent ultrasound of neck and was told it was negative. Again she is encouraged to follow-up with PCP for further work-up and possible ultrasound. Cost of Eliquis was found to be affordable and she is going to be discharged on Eliquis 10 mg twice daily for 7 days and then 5 mg twice daily thereafter. At time of discharge patient was hemodynamically stable. She continued to have right upper extremity swelling and is encouraged to elevate when able. Imaging of chest did reveal atelectasis and she did have mild cough. She is encouraged to use incentive spirometer. She was hemodynamically stable saturating well on room air. Her blood pressure was 110/70. Discharge Exam Constitutional: WD/WN, vitals as above, NAD, sitting up in bed, pleasant, conversing easily Head: Normocephalic, Atraumatic Eyes: PERRL, conjunctivae normal, anicteric sclerae ENMT: external ear and nose normal, oropharynx normal Neck: trachea midline, no thyromegaly normal visual inspection Respiratory: normal respiratory effort, lungs clear to auscultation, no wheeze, rales, rhonchi. Normal insp/exp effort, no accessory muscle use Cardiovascular: RRR, no murmur, right upper extremity edema noted, no erythema or pain to palpation vessels: no JVD or carotid bruit Chest: normal inspection of chest Abdomen: normal bowel sounds, soft, nontender, no hepatosplenomegaly Musculoskeletal: no cyanosis or clubbing, extremities motor strength 5/5 Skin: no rashes, warm and dry normal turgor Neurologic: PERRL, EOMI, accommodation nl, no face palsy, no dysarthria CN's II-XI intact bilaterally and moves all extremities Psychiatric: A+Ox3, euthymic affect Lymphatic: no cervical or axillary lymphadenopathy : deferred Updated Medication List Medication Instructions Recorded Confirmed Type apixaban 5 mg tablet (Eliquis) 5 mg PO BID #74 tabs 10/04/22 Rx calcitriol 0.25 mcg capsule 0.25 mcg PO BID 10/04/22 10/04/22 History ergocalciferol (vitamin D2) 1,250 1,250 mcg PO .EVERY 14 DAYS 10/04/22 10/04/22 History mcg (50,000 unit) capsule (Vitamin D2) levothyroxine 88 mcg tablet 88 mcg PO DAILYBB 10/04/22 10/04/22 History Hospital Stay Data Consultations 10/04/22 01:00 ED Decision to Admit Stat Diagnostic Imagining Performed Venous Doppler Study 10/03/22 17:30 ULTRASOUND RIGHT UPPER EXTREMITY VENOUS CLINICAL HISTORY: Right arm pain and swelling. Erythema. COMPARISON STUDY: No priors. TECHNIQUE: Real-time, grayscale, and color Doppler sonography of the deep veins of the right upper extremity is performed. Compression and augmentation were utilized. FINDINGS: There is nearly occlusive to occlusive deep venous thrombosis identified in the right subclavian and axillary veins. The brachial veins and right internal jugular vein are patent and normally compressible. The cephalic and basilic veins are clear. The visualized radial and ulnar veins are patent. IMPRESSION: There is nearly occlusive to occlusive deep venous thrombosis seen in the right subclavian and axillary veins. ACT 112: Negative or not required by law. Electronically signed by: Burton Rothman M.D. 10/03/2022 6:[address] 10/03/22 18:21 Exam(s): CT NECK With Contrast EXAM: CT Neck With Intravenous Contrast CLINICAL HISTORY: Reason for exam: R arm edema. Thyroid carcinoma.. TECHNIQUE: Axial computed tomography images of the neck with intravenous contrast. Automated exposure control was utilized for the study. A dose lowering technique was utilized adhering to the principles of ALARA. CONTRAST: Contrast must be dictated COMPARISON: None. FINDINGS: Oropharynx: Unremarkable. No significant tonsillar enlargement. No peritonsillar abscess. Hypopharynx: Unremarkable. Larynx: Unremarkable. Normal epiglottis. Trachea: Patent trachea. Retropharyngeal space: Unremarkable. Submandibular/parotid glands: Unremarkable. Glands are normal in size. Thyroid: Not visualized suggestive of prior resection. Bones/joints: Degenerative disease of the spine with normal cervical lordosis. No acute fracture. Soft tissues: At the level of the right paratracheal region there is a soft tissue density with ill-defined margins extending to the paratracheal soft tissues, right anterolateral prevertebral region and right supraclavicular space. This measures approximately 2.9 x 3.1 cm. Differential diagnosis includes recurrent carcinoma versus postoperative inflammatory process. This is noted to the level of the right medial supraclavicular region. Vasculature: Nonvisualized right-sided jugular vein from presumed prior surgical resection. Normal aortic arch and origin of great vessels. Normal bilateral carotid and vertebral arteries. Normal bilateral subclavian arteries. Lymph nodes: There is a small right-sided lymph node in the lower neck just posterior to the sternocleidomastoid muscle measuring 8.5 mm. No severe lymphadenopathy seen. Sinuses: Minimal mucosal thickening of bilateral maxillary sinuses, likely sequela of prior sinusitis. Lung apices: Unremarkable as visualized. IMPRESSION: 1. Questionable recurrent neoplasm involving the right paratracheal region versus postoperative inflammatory changes. If indicated, these findings may be further assessed with MRI of the neck with intravenous contrast or PET scan evaluation in the nonacute setting. 2. Status post right jugular vein resection otherwise normal CT angiogram of the neck arteries with no severe stenosis, occlusion or dissection noted. Electronically signed by: Tomasa West MD 10/03/22 21:31 PM Chest CTA 10/03/22 18:50 Exam(s): CTA CHEST EXAM: CT Angiography Chest With Intravenous Contrast CLINICAL HISTORY: Reason for exam: RUE DVT, cough with inspiration. TECHNIQUE: Axial computed tomographic angiography images of the chest with intravenous contrast. Automated exposure control was utilized for the study. A dose lowering technique was utilized adhering to the principles of ALARA. MIP reconstructed images were created and reviewed. COMPARISON: None. FINDINGS: Pulmonary arteries: Unremarkable. No pulmonary embolism. Aorta: No acute findings. No thoracic aortic aneurysm. Lungs: Left lower lobe atelectasis. Pleural space: Mild biapical pleural thickening with subpleural scarring versus atelectasis. Remainder of the lung bases are clear. No significant effusion. No pneumothorax. Heart: Unremarkable. No cardiomegaly. No significant pericardial effusion. No evidence of RV dysfunction. Bones/joints: Degenerative disease of the spine. No acute fracture. No dislocation. Soft tissues: Nonspecific soft tissue density in the lower neck just above the supraclavicular region. This is described in detail in the accompanying CT of the neck report. Lymph nodes: Unremarkable. No enlarged lymph nodes. Liver: Enhancing lesion with peripheral nodular enhancement within the anterior aspect of the left liver lobe measuring 1.3 cm, likely small hemangioma. Gallbladder and bile ducts: Contracted gallbladder. Otherwise unremarkable biliary system. IMPRESSION: Minimal atelectasis otherwise no acute cardiopulmonary disease. Electronically signed by: Tomasa West MD 10/03/22 21:19 PM Brain MRI 10/04/22 10:32 MRI OF THE BRAIN COMBO CLINICAL HISTORY: Thyroid cancer. Metastatic survey. COMPARISON STUDY: No priors. TECHNIQUE: MRI of the brain was performed utilizing various T1 and T2-weighted sequences in the axial, sagittal, and coronal planes. Contrast-enhanced sequences were acquired following the administration of 5.5 cc of Gadavist. FINDINGS: Brain parenchyma: There is age-related involutional change noting mild subcortical and periventricular microangiopathic disease. There is no hemorrhage or mass effect. There is no restricted diffusion to suggest acute ischemia. No enhancing mass lesion is identified on the postcontrast images. Meyer-white m atter differentiation is preserved. No extra-axial fluid collection is seen. The cerebellar tonsils are normal in configuration. Ventricles, sulci, and cisterns: Prominent secondary to involutional change. Pituitary and sella: Unremarkable. Intracranial vasculature: Normal flow voids are maintained at the skull base. Orbits: The bony orbits are grossly intact. Orbital contents are normal in appearance. Sinuses and mastoids: Clear. Calvarium: Unremarkable. Cervical cord: Partially visualized cervical spinal cord is normal in morphology and signal intensity. Soft tissues: A 13 mm enhancing soft tissue lesion is suggested within or adjacent to the left parotid gland on coronal image #11. IMPRESSION: 1. No acute intracranial abnormality is identified. 2. Specifically, there is no evidence of intracranial metastatic disease. 3. Question a 13 mm enhancing soft tissue lesion within or adjacent to the left parotid gland. Ultrasound correlation is recommended. ACT 112: Negative or not required by law. Electronically signed by: Burton Rothman M.D. 10/04/2022 2:04 PM Pending Results Patient Have Any Pending Studies at Discharge: No Discharge Instructions Given to Patient (Per Discharging Provider) MEDICATION CHANGES: Eliquis 5mg, take two tablets by mouth twice daily for 7 days. After 7 days take one tablet (5mg) twice daily. Please discuss with oncologist or Dr. Molina to determine duration of anticoagulation. Resume all home medications. SUMMARY OF TEST RESULTS: You were admitted to hospital due to DVT of your Right upper extremity, specif ically Right subclavian and axillary veins. You were started on IV heparin and transitioned to oral medication, Eliquis, to treat blood clot. An MRI of brain was obtained to r/o metastatic disease to brain and this was negative. MRI of brain did show 13mm adjacent soft tissue lesion adjacent to Left parotid gland, this will need follows up with Dr. Molina Pending Test Results None RECOMMENDATIONS FOR FOLLOW-UP: Follow up with Dr. Molina as scheduled. Please keep PET CT scan down at [facility] as scheduled. Follow up with Cancer Care expert at [facility]. Do not miss any dose of new medication Eliquis. This helps prevent worsening of your blood clot. Recommend elevation to your Right upper extremity as able to assist with swelling. Your Primary Care Provider or oncologist will determine how long you require to be on Eliquis. Eliquis does increase your risk of bleeding. Do not take any NSAIDS with Eliquis as this can increase your risk of bleeding. Nsaids examples are Ibuprofen, aleve, advil, motrin, naproxen. If you do experience pain we recommend you use Tylenol. OTHER INSTRUCTIONS: Seek medical attention if you have: * temperature above 101 * chest pain or trouble breathing * abdominal pain, nausea, vomiting * diarrhea, dark stools or bloody stools * any unanswered questions or concerns Call 911 if symptoms are severe. Please take good care of yourself. It has been a pleasure taking care of you. Please take care of yourself. If you have any questions regarding your recent hospitalization please contact [facility] and request celestine Wangist @ [phone]. Elizabeth Pierce PA-C Total Time Total Time Spent Total Time Spent (In Minutes): 45 minutes Supervising Physician Co-Signing Physician Notes Patient is seen and examined on day of discharge. States having right upper extremity swelling. Denies any pain. No other complaints. On exam patient is moderately built and nourished, no apparent distress, normocephalic atraumatic, EOMI, normal breath sounds, clear to auscultation, S1-S2, no murmur, no pedal edema, abdomen soft, nontender, normal bowel sounds, alert, awake, oriented, grossly no focal deficits, right upper extremity swelling noted. Patient is admitted for management of acute right upper extremity deep vein thrombosis. IV heparin transition to Eliquis. Advised to follow-up with oncology upon discharge. Hypercoagulable work-up as outpatient. Duration of anticoagulation to be determined by primary oncologist. I personally reviewed the record. Patient is interviewed and examined at bedside. Patient's care is coordinated with Elizabeth Pierce PA-C. Please refer to the documentation above for details of patient's presentation and for discussion of other issues.
[2022-10-04 17:23] LABS: Partial Thromboplastin Ratio 1.3; Partial Thromboplastin Time 35.3 Seconds (21.0-31.0)
[2022-10-18] MEDS ORDERED: ERGOCALCIFEROL 50,000 UNITS 1250 MCG CAP PO SCH (09:00)
== END 2022-10-04 18:37 | disposition home or self-care (01) | DRG 301 ==
LOC: ED 17:05 → 3E 10-04 02:55 → SUATTDRO 10-04 02:55 → 3E 10-04 04:26

== ENCOUNTER 2024-04-17 17:41 | Inpatient (IN) ==
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
[2024-04-17] MEDS: MoRPHine SULFATE 4 MG/ML 1 ML CARP\\VIAL IV STA (18:55)
[2024-04-17] MEDS: SODIUM CHLORIDE 0.9% 500 ML IV STA (18:55)
[2024-04-17] MEDS: ONDANSETRON INJ 2 MG/ML 2 ML VIAL IV STA (18:55)
--- NOTE | 2024-04-17 18:58 | XRay Report ---
XR chest 1V portable HISTORY: Chest pain, nonspecific COMPARISON: Chest 12/28/2016. FINDINGS: There is a small to moderate right pneumothorax demonstrating a maximal pleural gap of 2 cm . The patient is slightly rotated which results in difficult evaluation for mediastinal shift. No foc al lung consolidations to suggest a pneumonia. No evidence for pulmonary edema. Nondisplaced right po sterior ninth rib fracture is noted. The heart is top normal in size. No pleural effusions. IMPRESSION: 1. Small to moderate right pneumothorax. 2. Nondisplaced right posterior ninth rib fracture. ACT 112: Negative or not required by law. Electronically signed by: Afshin Theodore M.D. 04/17/2024 6:56 PM
[2024-04-17] MEDS: LIDOCAINE 1% LOCAL 20 ML VIAL INJ ONE (19:10)
[2024-04-17 19:18] LABS: Basophils # (auto) 0.01 K/uL (0.00-0.20); Basophils % (auto) 0.1 %; Eosinophils # (auto) 0.01 K/uL (0.00-0.50); Eosinophils % (auto) 0.1 %; Hematocrit (blood only) 34.3 % (37.0-47.0); Hemoglobin 10.6 g/dl (12.0-16.0); Immature Granulocytes # (auto) 0.03 K/uL (0.01-0.20); Immature Granulocytes % (auto) 0.4 %; Lymphocytes # (auto) 0.78 K/uL (1.20-3.40); Lymphocytes % (auto) 10.4 %; Mean Corpuscular Hemoglobin 27.4 pg (25.0-34.0); Mean Corpuscular Hgb Conc 30.9 g/dL (32.0-36.0); Mean Corpuscular Volume 88.6 fL (80.0-100.0); Mean Platelet Volume 10.1 fL (9.4-12.4); Monocytes # (auto) 0.82 K/uL (0.11-0.59); Monocytes % (auto) 10.9 %; Neutrophils # (auto) 5.85 K/uL (1.40-6.50); Neutrophils % (auto) 78.1 %; Platelet Count 205 K/uL (130-400); RDW Coefficient of Variation 17.2 % (11.5-14.5); RDW Standard Deviation 55.5 fL (36.4-46.3); Red Blood Count 3.87 M/uL (4.20-5.40)
[2024-04-17 19:22] LABS: Albumin Globulin Ratio 1.1 (0.9-2); Albumin Level 3.3 gm/dl (3.4-5.0); BUN Creatinine Ratio 41.5 (10-20); Bilirubin,Total 0.7 mg/dl (0.2-1.0); Calcium 8.5 mg/dl (8.6-10.3); Est GFR (African American) 109.2 ml/min; Est GFR (Non-African American) 94.2 ml/min; Potassium 3.6 mmol/L (3.5-5.1); Total Protein 6.3 gm/dl (6.0-8.3)
[2024-04-17 19:29] LABS: Troponin I High Sensitivity 6.7 pg/ml (0-14)
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
[2024-04-17] MEDS ORDERED: oxyCODONE HCL IR 5 MG TAB (IMMEDIATE RELEASE) PO PRN (22:27)
[2024-04-17] MEDS ORDERED: POLYETHYLENE (MIRALAX) 17 GM PACK PO PRN (22:35)
[2024-04-17] MEDS ORDERED: NITROGLYCERIN SL 0.4 MG/TAB TAB SL PRN (22:35)
[2024-04-17] MEDS ORDERED: ACETAMINOPHEN 325 MG TAB PO PRN (22:35)
[2024-04-17] MEDS: MoRPHine SULFATE CR 15 MG TABCR PO SCH (23:19)
[2024-04-17] MEDS: LACTATED RINGER'S 1,000 ML IV SCH (23:20)
[2024-04-17] MEDS: APIXABAN 5 MG TABLET PO SCH (23:35)
--- OUTSIDE RECORDS SUMMARY | 2024-04-18 05:20 | External Medical Summary | Summary of Care ---
Author Name Unknown Organization [facility] Address [address] [place] [address] Phone [phone] Care Team Providers Care Sql Bi Developer Name Role Phone Mariela Molina DO Primary Care Provider [phone] Reason for Visit * Reason Onset Date Comments Medication Question 04/14/2024 Encounter Details Date Type Department Care Team (Late st Contact Info) Description 04/14/2024 Telephone Hematology/Oncology [facility] [place] [address] [place] [address] Romaine Rolon MD [address] [place] [address] Medication Question Allergies Active Allergy Reactions Criticality Noted Date Comments Doxycycline Diarrhea,Nausea/vomiting 03/22/2021 Penicillins Nausea/vomiting 09/20/2018 documented as of this encounter (statuses as of 04/17/2024) Medications Medication Sig Dispensed Refills Start Date End Date Status Multivitamin Adult Oral Tablet Take 1 Tablet by mouth in the morning. Khurram Woodard multivitamin . Active Calcitriol 0.25 MCG Oral Capsule (Rocaltrol) TAKE ONE CAPSULE BY MOUTH TWICE A DAY 180 Capsule 3 11/30/2022 Active Calcium Citrate-Vitamin D3 315-6.25 MG-MCG Oral Tablet (Calcium Citrate + D3 Maximum) Take by mouth 2 times a day. Active First-Mouthwash BLM Mouth/Throat Suspension Swish and swallow 10 mL every 4 hours as needed. 10/17/2023 Active Magic Mouthwash (Lidocaine-Benad ryl-Nystatin) oral solution Swish and spit 15 mL in the morning and 15 mL before bedtime. 200 mL 1 11/09/2023 Active Ergocalciferol 1.25 MG (34745 UT) Oral Capsule (Vitamin D2(Drisdol))Rubina cations:Anaplast ic thyroid carcinoma (HCC),Metastasis to bone (HCC),Vitamin D deficiency Take 1 Capsule by mouth every 14 days. 6 Capsule 2 12/25/2023 Active Polyethylene Glycol 3350 17 GM Oral Packet (Miralax) Take 1 Packet by mouth daily as needed for Constipation. 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 90 Capsule 02/04/2024 Active Levothyroxine Sodium 100 MCG Oral Tablet (Levoxyl) Take 1 tablet by mouth once daily. 90 Tablet 3 02/11/2024 Active Lidocaine 4 % External Patch (Aspercreme)Rubina cations:Cancer related pain Place 1 Patch over 12 hours topically on the skin daily. 30 Patch 02/13/2024 Active Additional Information Patient not taking.Reported on 02/21/2024 Eliquis 5 MG Oral TabletIndication s:Acute deep vein thrombosis (DVT) of other vein of right upper extremity (HCC) Take 1 Tablet by mouth in the morning and 1 Tablet before bedtime. 180 Tablet 3 02/21/2024 Active Tafinlar 75 MG Oral Capsule (Dabrafenib Mesylate) Take 2 capsules (150 mg total) by mouth every 12 hours. 120 Capsule 3 03/04/2024 Active Acetaminophen 500 MG Oral Tablet (Tylenol)Indicat ions:Cancer related pain Take 2 Tablets by mouth in the morning and 2 Tablets at noon and 2 Tablets in the evening. Currently not taking. 03/21/2024 Active dexAMETHasone 4 MG Oral Tablet (Decadron)Indica tions:Cancer related pain Take 1 Tablet by mouth 2 times a day with morning and evening meals. 30 Tablet 04/09/2024 Active Morphine Sulfate ER 30 MG Oral Tablet Extended Release (Ms Contin)Indicatio ns:Cancer related pain Take 1 Tablet by mouth in the morning and 1 Tablet before bedtime. 28 Tablet 04/09/2024 Active oxyCODONE HCl 10 MG Oral Tablet (Roxicodone)Rubina cations:Cancer related pain Take 1 Tablet by mouth every 4 hours as needed for Pain, Severe. 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 Protein-calorie malnutrition 10/30/2022 Thyroid cancer 08/30/2022 Postprocedural hypothyroidism 02/09/2022 Hypoparathyroidism 02/09/2022 Benign neoplasm of colon 03/10/2009 Overview: repeat 3 years IRON DEFIC ANEMIA NOS documented as of this encounter (statuses as of 04/17/2024) Resolved Problems Problem Noted Date Diagnosed Date Resolved Date Acute deep vein thrombosis ( DVT) of lower extremity 10/10/2022 09/25/2023 documented as of this encounter (statuses as of 04/17/2024) Immunizations Name Administration Dates Next Due COVID-19 mRNA, LNP-s, No Pre serve, 2-Dose Series ([employer]) 04/25/2021,10/12/2020,09/21/2020 COVID-19, MRNA-LNP, 23-24, P F, 50 MCG/0.5 mL, 12 YRS AND ABOVE, IM (MODERNA-Spikevax) 05/08/2023 COVID-19, mRNA, LNP-s, PF, B ooster, 100mcg/0.5mg (Moderna) 12/19/2021 Covid-19, Mrna, Lnp-s, Pf, B ivalent, 50 Mcg, IM, 12 yrs and above (Moderna) 04/10/2022 Pneumococcal Conjugate Vacc, 13 Valent (Prevnar) 03/30/2020 Pneumococcal Polysaccharide PPV23 (Pneumovax) 06/30/2022 Seasonal Influenza, High Dos e, Trivalent, PF, IM (Fluzone HD) 06/11/2019 Seasonal Influenza, Quadriva lent Hd, 65+ Yrs 06/16/2023 Seasonal Influenza, Recombin ant, RIV4, PF, (Flublock) 04/30/2020 Seasonal Influenza, Trivalen t, (IIV3), with Preserv, (Fluzone) 06/11/2019 Seasonal Influenza, Trivalen t, Adjuvanted, 65+ YRS, PF, (Fluad) 04/10/2022 TDAP, Age 7 and older, IM (Adacel) 12/28/2016 Zoster Vaccine Recombinant (Shingrix) 08/30/2022 ,05/16/2022 documented as of this encounter Social History Tobacco Use Types Packs/Day Years Used Date Smoking Tobacco: Never Passive Smoke Exposure: Never Smokeless Tobacco: Never Alcohol Use Standard Drinks/Week Comments Not Currently 0 (1 standard drink = 0.6 oz pur e alcohol) Occasionally holidays PHQ-2 Answer Date Recorded PHQ Adult Total Score 0 08/24/2023 Hunger Vital Sign Answer Date Recorded Within the past 12 months, y ou worried that your food would run out before you got the money to buy more. Never true 08/24/19 24 Within the past 12 months, t he food you bought just didn't last and you didn't have money to get more. Never true 08/24/2023 Childcare Answer Date Recorded Do you feel overwhelmed with taking care of a child, family member or friend? No 08/24/2023 Does your family need help f inding childcare? (Household - for ages 0-17 years) Not on file 08/24/2023 Clothing Answer Date Recorded Have you been unable to get clothing when it was really needed? No 08/24/2023 Is your family able to get c lothes or diapers when needed? (Household - for ages 0-17 years) Not on file 08/24/2023 Personal Safety Answer Date Recorded Do you feel unsafe or have concerns for your saf ety? No 08/24/2023 Do you have concerns for you r family's safety? (Household - for ages 0-17 years) Not on file 08/24/2023 Utilities Answer Date Recorded Do you have trouble paying y our heating, water, or electric bill? No 08/24/2023 Is your family able to pay t he heat, water, or electric bill? (Household - for ages 0-17 years) Not on file 08/24/2023 Does your family have access to good internet? (Household - for ages 0-17 years) Not on file 08/24/2023 Employment Status Answer Date Recorded Are you unemployed or without regular income? No 08/24/2023 Does the household have a re gular source of income? (Household - for ages 0-17 years) Not on file 08/24/2023 Social Connections Answer Date Recorded How often do you feel lonely or isolated from th ose around you? Never 08/24/2023 Financial Resource Strain Answer Date R ecorded Do you have any trouble payi ng for your medications, or do you think you might in the future? No 08/24/2023 Does your family have troubl e paying for medicine? (Household - for ages 0-17 years) Not on file 08/24/2023 Transportation Needs Answer Date Record ed READ ONLY Do you have troubl e getting a ride to medical visits or work? Never True 08/24/2023 Does your family have a hard time getting a ride to doctors visits? (Household - for ages 0-17 years) Not on file 08/24/2023 Has lack of transportation k ept you from medical appointments, meetings, work, or from getting things needed for daily living? Check all that apply. (Adult - for ages 18 years and over) Not on file 08/24/2023 Do you (or your family) have trouble finding or paying for a ride (transportation)? (Household - for ages 0-17 years) Not on file 08/24/2023 Housing Stability Answer Date Recorded Do you currently live in a s helter or have no steady place to sleep at night? No 08/24/2023 READ ONLY Do you think you a re at risk of becoming homeless? No 08/24/2023 Does your family worry about paying for your home or becoming homeless? (Household - for ages 0-17 years) Not on file 0 08/24/2023 Are you homeless or worried that you might be in the future? (Adult - for ages 18 years and over) Not on file Are you (or your family) dionisio eless or worried that you might be in the future? (Household - for ages 0-17 years) Not on file Food Insecurity Answer Date Recorded Do you need food for this week? No 08/24/2023 Are you able to get enough f ood for your family? (Household - for ages 0-17 years) Not on file 08/24/2023 Does your family need food t his week? (Household - for ages 0-17 years) Not on file 08/24/2023 Do you always have enough fo od for your family? (Household - for ages 0-17 years) Not on file 08/24/2023 Sex and Gender Information Value Date Recorded Sex Assigned at Female 02/09/2022 9:48 AM EDT Gender Identity Female 02/09/2022 9:48 AM EDT Sexual Orientation Straight 02/09/2022 9: 48 AM EDT Job Start Date Occupation Industry Not on file Not on file Not on file documented as of this encounter Miscellaneous Notes * Telephone Encounter - Mahamed Webb OSA - 04/17/2024 8:24 AM EDT Patient has been scheduled. However, she did request that visit be changed to a video visit. Can this be done? Please advise. * Telephone Encounter - Isatu Gagnon RN - 04/17/2024 7:54 AM EDT Scheduling: please contact patient to schedule appt with Dr Rolon- she was last seen 02/12/24. Dr Rolon has opening this morning, but also sent staff message with who could be bumped to fit her in for next week if she cannot take that. Thanks! * Telephone Encounter - Mariela Molina DO - 04/16/2024 2:08 PM EDT Noted. Had video visit with pt today. She very much wants to continue with treatment presently. Noton hospice. * Telephone Encounter - Isatu Gagnon RN - 04/15/2024 10:52 AM EDT Had reviewed with Dr Rolon, ok to continue tafinlar/ mekinist if this is what patient prefers. Dr Rolon: please see Fide's note and advise. Thanks! * Telephone Encounter - Shanelle Isaac LPN - 04/15/2024 9:42 AM EDT Called and spoke with patient She is NOT going on hospice at this time She is starting radiation tomorrow 04/16 Will be going every other day for 5 fractions Will complete radiation next Sunday She states she has not completely ruled out hospice at this time, but she wants to continue taking her cancer pills Advised her that I do not think she would be able to be enrolled on hospice as long as she is on that medication as it is considered a life prolonging medication She is very unsure of what to do She is wanting to know if she stops her cancer medication, how long/fast will her tumor grow She states she is under the understanding that she is taking this medication to help slow the growth of her tumor that is growing towards her esophagus She still wants to be able to continue to talk/speak/breathe She is asking if someone from hem/onc would be able to call her to help clarify some of these questions she has Palliative will f/u again at the end of this week * Telephone Encounter - Stephy Nunez RP - 04/14/2024 4:26 PM EDT Hello! I spoke with pt today regarding her mekinist/tafinlar. There seems to be confusion about her hospice decision. I spoke with the patient this afternoon on the phone and she stated she decided to NOT pursue hospice at this time and needed a refill on her oral chemotherapy Please advise and lopp back in GSP if refills needed Patient could be reached at [phone] Stephy Dawson, Pharm. D. Clinical Specialty Pharmacist [facility] 04/14/2024, 4:27 PM documented in this encounter Plan of Treatment Upcoming Encounters Date Type Department Care Team (Late st Contact Info) Description 04/22/2024 3:00 PM EDT Telemedicine Family Practice [address] [facility] [address] [place] [address] Mariela Molina DO [address] [place] [address] 2024 2:45 PM EDT Office Visit Hematology/Oncology [facility] [address] [place] [phone] Romaine Rolon MD [address] [place] [address] Scheduled Procedures Name Priority Associated Diagnoses Date/Ti me COLONOSCOPY FLEXIBLE PROXIMAL DIAGNOSTIC Recall History of colon polyps Health Maintenance Due Date Last Done Comments Mammogram 1990 Cologuard 1995 Fecal Occult Blood Test 1995 Sigmoidoscopy 1995 Colonoscopy 09/24/2023 09/24/2018, 08/31, 01/10/2013, Additional history exists Colorectal Cancer Screening 09/24/2023 COVID-19 Vaccine ( season) 2024 05/08/2023, 04/10/2022, 12/19/2021, Additional history exists Influenza Vaccine (FLU shot) (#1) 2024 06/16/2023, 04/10/2022, 04/30/2020, Additional history exists Adult Wellness Visit 06/27/2024 06/27/2023, 06/30/20 22 Depression Screening 08/24/2024 08/24/2023 TSH 03/27/2025 03/27/2024, 07/09/2023, 11/28/2023, Additional history exists DXA Scan 04/25/2026 04/25/2019, 04/25/2019 DTap/Tdap Vaccines (2 - Td or Tdap) 12/28/2026 12/28/2016 Lipid Panel 05/16/2027 05/16/2022, 02/13/2019 RETIRED - COLONOSCOPY-EVERY 5 YRS AGES 18-100 Discontinued 09/24/2018, 09/24/2018, 01/10/2013, Additional history exists Pneumococcal Vaccine: 65+ Years Completed 06/30/2022, 03/30/2020 Zoster Vaccines Completed 08/30/2022, 05/16/2022 HPV (Gardasil) Vaccine Aged Out No lo nger eligible based on patient's age to complete this topic Hepatitis B Vaccine Aged Out No longe r eligible based on patient's age to complete this topic MENINGOCOCCAL (MENACTRA/MENVEO) Aged Out No longer eligible based on patient's age to complete this topic documented as of this encounter Medical Devices Not on filedocumented as of this encounter Advance Directives Documents on File Type Date Recorded Patient Circuits Engineer Expl anation BRET 04/10/2024 signed on 04/09 POL Care Teams Sql Bi Developer Relationship Specialty Start Date End Date Mariela Molina DO [address] [facility] [place] [address] PCP - General Family Medicine 02/20/24 documented as of this encounter
--- OUTSIDE RECORDS SUMMARY | 2024-04-18 05:20 | External Medical Summary | Summary of Care ---
Author Name Unknown Organization [facility] Address [address] [place] [address] Phone [phone] Care Team Providers Care Supervisor Turkey Farm Name Role Phone Mariela Molina DO Primary Care Provider Reason for Visit * Reason Onset Date Comments Medication Question 04/14/2024 Encounter Details Date Type Department Care Team (Late st Contact Info) Description 04/14/2024 Telephone Hematology/Oncology [facility] [place] [address] [place] [address] Romaine Rolon MD [address] [place] [address] Medication Question Allergies Active Allergy Reactions Criticality [...] mL 1 11/09/2023 Active Ergocalciferol 1.25 MG (86886 UT) Oral Capsule (Vitamin D2(Drisdol))Rubina cations:Anaplast ic [...] mRNA, LNP-s, No Pre serve, 2-Dose Series ([employer]) 04/25/2021,10/12/2020,09/21/2020 COVID-19, MRNA-LNP, 23-24, P F, 50 [...] refills needed Patient could be reached at [phone] Stephy Dawson, Pharm. D. Clinical Specialty Pharmacist [facility] 04/14/2024, 4:27 PM documented in this encounter Plan of Treatment Upcoming Encounters Date Type Department Care Team (Late st Contact Info) Description 04/22/2024 3:00 PM EDT Telemedicine Family Practice 65 [facility] [address] [place] [address] Mariela Molina DO [address] [place] [address] 2024 2:45 PM EDT Office Visit Hematology/Oncology [facility] [address] [facility] [phone] Romaine Rolon MD [address] [place] [address] Scheduled Procedures Name Priority Associated Diagnoses Date/Ti [...] Documents on File Type Date Recorded Patient Etl Manager Expl anation BRET 04/10/2024 signed on 04/09 POL Care Teams Supervisor [employer] Relationship Specialty Start Date End Date Mariela Molina DO [address] [place] [facility] [place] [address] PCP - General Family Medicine 02/20/24 documented as of this encounter
--- OUTSIDE RECORDS SUMMARY | 2024-04-18 05:21 | External Medical Summary | Summary of Care ---
Author Name Unknown Organization [facility] Address [address] [place] [address] Phone [phone] Care Team Providers Care Mason Helper Name Role Phone Mariela Molina DO Primary Care Provider Reason for Visit * Reason Onset Date Comments Medication Question 04/14/2024 Encounter Details Date Type Department Care Team (Late st Contact Info) Description 04/14/2024 Telephone Hematology/Oncology [facility] [place] [address] [place] [address] Romaine Rolon MD [address] [place] [address] Medication Question Allergies Active Allergy Reactions Criticality Noted Date Comments Doxycycline Diarrhea,Nausea/vomiting 03/22/2021 Penicillins Nausea/vomiting 09/20/2018 documented as of this encounter (statuses as of 04/16/2024) Medications Medication Sig Dispensed Refills Start Date [...] mL 1 11/09/2023 Active Ergocalciferol 1.25 MG (47177 UT) Oral Capsule (Vitamin D2(Drisdol))Rubina cations:Anaplast ic [...] as of this encounter (statuses as of 04/16/2024) Active Problems Problem Noted Date Diagnosed Date [...] as of this encounter (statuses as of 04/16/2024) Resolved Problems Problem Noted Date Diagnosed Date Resolved Date Acute deep vein thrombosis ( DVT) of lower extremity 10/10/2022 09/25/2023 documented as of this encounter (statuses as of 04/16/2024) Immunizations Name Administration Dates Next Due COVID-19 mRNA, LNP-s, No Pre serve, 2-Dose Series ([employer]) 04/25/2021,10/12/2020,09/21/2020 COVID-19, MRNA-LNP, 23-24, P F, 50 [...] encounter Miscellaneous Notes * Telephone Encounter - Mariela Molina DO [...] week * Telephone Encounter - Stephy Nunez RPh - 04/14/2024 4:26 PM EDT Hello! I [...] refills needed Patient could be reached at [phone] Stephy Dawson, Pharm. D. Clinical Specialty Pharmacist [facility] 04/14/2024, 4:27 PM documented in this encounter Plan of Treatment Upcoming Encounters Date Type Department Care Team (Late st Contact Info) Description 04/22/2024 3:00 PM EDT Telemedicine Family Practice 65 [facility] [place] [address] [place] [address] Mariela Molina DO [address] [place] [address] Scheduled Procedures Name Priority Associated Diagnoses Date/Ti [...] Depression Screening 08/24/2024 08/24/2023 TSH 03/27/2025 03/27/2024, 01/28, 11/28/2023, Additional history exists DXA Scan 04/25/2026 [...] Documents on File Type Date Recorded Patient 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
--- OUTSIDE RECORDS SUMMARY | 2024-04-18 05:21 | External Medical Summary | Summary of Care ---
Author Name Unknown Organization [facility] Address [address] [place] [address] Phone [phone] Care Team Providers Care Child Care Lead Teacher Name Role Phone Mariela Molina DO Primary Care Provider [phone] Reason for Visit * Reason Comments Re-Check Encounter Details Date Type Department Care Team (Late st Contact Info) Description 04/16/2024 11:20 AM EDT Telemedicine Family Practice 65 [facility] [address] [place] [phone] Mariela Molina DO [address] [place] [address] Malignant neoplasm metastatic to both lungs (HCC)*; Secondary and unspecified malignant neoplasm of lymph nodes of head, face and neck (HCC); Anaplastic thyroid carcinoma (HCC); Spinal cord compression due to malignant neoplasm metastatic to spine (HCC); Cancer related pain Allergies Active Allergy Reactions Criticality Noted Date [...] mL 1 11/09/2023 Active Ergocalciferol 1.25 MG (99635 UT) Oral Capsule (Vitamin D2(Drisdol))Rubina cations:Anaplast ic [...] as needed for Pain, Severe. 60 Tablet 04/16/2024 Active oxyCODONE HCl 10 MG Oral Tablet [...] mRNA, LNP-s, No Pre serve, 2-Dose Series ([employer]) 04/25/2021,10/12/2020,09/21/2020 COVID-19, MRNA-LNP, 23-24, P F, 50 [...] No 08/24/2023 Does the household have a [facility] source of income? (Household - for ages [...] on file documented as of this encounter Progress Notes * Mariela Molina, - 04/16/2024 11:15 AM EDT Patient location: HOME. I was in a hospital or clinic location. After connecting through televideo,patient was verified with two unique identifiers. Patient (or authorized legal sales representative graphic art) wasthen informed that this was a Telemedicine visit and being conducted confidentially over secure lines. Methods to assure confidentiality were taken. Patient acknowledged consent and understanding of privacy and security of the Telemedicine visit. The patient agreed to participate. SUBJECTIVE: Chief Complaint Patient presents with Re-Check HPI: Ivette Castillo is a 73 year old female who was seen over video visit today. Pt has had significant decline in functional status. 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 Her left arm is now affected. notes that he has to "press operator" carry her as her legs have not been working wellthe last 4 days. She has stairs to get to her bathroom and bedroom. She did have a hospice meeting with [facility] but elects to pursue radiation and continue on her chemotherapy pills. She feels she will eventually go on hospice but wants to see if these treatments buy her any more time. worriedshe will suffocate from the tumor. She is asking how she will . He is worried she will spend days gasping for air. Currently he is providing her care. They are not sure he will be able to do so athome for the duration. She is considering a hospice facility. She has increasing pain. She is taking 2 oxycodone at a time because the 10mg is not helping. She is taking the morphine. PHM: Patient Active Problem List Diagnosis IRON DEFIC ANEMIA NOS Benign neoplasm of colon Postprocedural hypothyroidism Hypoparathyroidism (HCC) Thyroid cancer (HCC) Secondary and unspecified malignant neoplasm of lymph nodes of head, face and neck (HCC) Protein-calorie malnutrition (HCC) Anaplastic thyroid carcinoma (HCC) Encounter for antineoplastic immunotherapy Hypercalcemia Hyperparathyroidism (HCC) Malignant neoplasm metastatic to both lungs (HCC) Current Outpatient Medications Medication Sig Dispense Refill oxyCODONE HCl 10 MG Oral Tablet (Roxicodone) Take 1 Tablet by mouth every 4 hours as needed for Pain, Severe. 60 Tablet 0 Multivitamin Adult Oral Tablet Take 1 Tablet by mouth in the morning. Khurram Woodard multivitamin . Calcitriol 0.25 MCG Oral Capsule (Rocaltrol) TAKE ONE CAPSULE BY MOUTH TWICE A DAY 180 Capsule 3 Calcium Citrate-Vitamin D3 315-6.25 MG-MCG Oral Tablet (Calcium Citrate + D3 Maximum) Take by mouth2 times a day. (Patient not taking: Reported on 02/21/2024) First-Mouthwash BLM Mouth/Throat Suspension Swish and swallow 10 mL every 4 hours as needed. (Patient not taking: Reported on 02/21/2024) Magic Mouthwash (Jgcbkkiyh-Szyfjtct-Sgxgmzuh) oral solution Swish and spit 15 mL in the morning and15 mL before bedtime. 200 mL 1 Ergocalciferol 1.25 MG (15222 UT) Oral Capsule (Vitamin D2(Drisdol)) Take 1 Capsule by mouth every 14 days. 6 Capsule 2 Polyethylene Glycol 3350 17 GM Oral Packet (Miralax) Take 1 Packet by mouth daily as needed for Constipation. Pregabalin 100 MG Oral Capsule (Lyrica) Take 1 Capsule by mouth in the morning and 1 Capsule at noon and 1 Capsule before bedtime. 90 Capsule 0 Levothyroxine Sodium 100 MCG Oral Tablet (Levoxyl) Take 1 tablet by mouth once daily. 90 Tablet 3 Lidocaine 4 % External Patch (Aspercreme) Place 1 Patch over 12 hours topically on the skin daily. (Patient not taking: Reported on 02/21/2024) 30 Patch 0 Eliquis 5 MG Oral Tablet Take 1 Tablet by mouth in the morning and 1 Tablet before bedtime. 180 Tablet 3 Tafinlar 75 MG Oral Capsule (Dabrafenib Mesylate) Take 2 capsules (150 mg total) by mouth every 12 hours. 120 Capsule 3 Acetaminophen 500 MG Oral Tablet (Tylenol) Take 2 Tablets by mouth in the morning and 2 Tablets at noon and 2 Tablets in the evening. Currently not taking. dexAMETHasone 4 MG Oral Tablet (Decadron) Take 1 Tablet by mouth 2 times a day with morning and evening meals. 30 Tablet 0 Morphine Sulfate ER 30 MG Oral Tablet Extended Release (Ms Contin) Take 1 Tablet by mouth in the morning and 1 Tablet before bedtime. 28 Tablet 0 No current facility-administered medications for this visit. Past Medical History: Diagnosis Date Benign neoplasm of colon 03/10/2009 repeat 3 years Hypoparathyroidism (HCC) Hypothyroid Iron deficiency anemia Recurrent thyroid cancer (HCC) papillary Past Surgical History: Procedure Laterality Date COLONOSCOPY W/ BIOPSY (RECTUM) 03/10/09 DONE COLONOSCOPY W/ LESION REMOVAL, SNARE 03/10/09 DONE adenomatous polyp--repeat 3 years COLONOSCOPY, DIAGNOSTIC (RECTUM) 01/10/2013 COLONOSCOPY FLEXIBLE PROXIMAL DIAGNOSTIC performed by Madisyn Montiel MD at ENDOSCOPY [facility] COLONOSCOPY, DIAGNOSTIC (RECTUM) 09/24/2018 rectal ulcer, repeat 5 yrs/COLONOSCOPY FLEXIBLE PROXIMAL DIAGNOSTIC performed by Madisyn Montiel MD at ENDOSCOPY [facility] MISCELLANEOUS ORDER mole removed from leg 1989 MISCELLANEOUS ORDER nevus on wrist removed 1990 REMOVAL OF THYROID LESION UNLISTED PROCEDURE, SMALL INTESTINE 03/10/09 DONE Review of patient's allergies indicates: Allergen Reactions Doxycycline Diarrhea and Nausea/vomiting Penicillins Nausea/vomiting Family History Problem Relation Name Age of Onset Heart attack Father 86 Prostate cancer Brother Other (liposarcoma) Brother Cancer Uncle (Unspecified) Pancreatic Heart Disorder Uncle (Unspecified) Maternal uncle Thyroid cancer Son Family Status Relation Status Mo Alive Fa Bro Alive Bro Bro Alive UNCLE (Not Specified) UNCLE (Not Specified) UNCLE (Not Specified) Son Alive Son Alive Son Alive Social History Tobacco Use Smoking status: Never Passive exposure: Never Smokeless tobacco: Never Substance Use Topics Alcohol use: Not Currently Comment: Occasionally holidays Vaping/E-Cigarette Use Vaping/E-Cigarette Use Never User Vaping/E-Cigarette Substances Vaping/E-Cigarette Devices REVIEW OF SYSTEMS: Review of Systems Constitutional: Positive for fatigue and unexpected weight change. Musculoskeletal: As per HPI OBJECTIVE: LMP 07/12/2000 PHYSICAL EXAM: Physical Exam Constitutional: Appearance: She is ill-appearing (chronically so). Neurological: Mental Status: She is alert. Comments: Unable to lift head ASSESSMENT/PLAN: (C78.01, C78.02) Malignant neoplasm metastatic to both lungs (HCC) (primary encounter diagnosis) (C77.0) Secondary and unspecified malignant neoplasm of lymph nodes of head, face and neck (HCC) (C73) Anaplastic thyroid carcinoma (HCC) (G95.29, C79.51) Spinal cord compression due to malignant neoplasm metastatic to spine (HCC) (G89.3) Cancer related pain Plan: oxyCODONE HCl 10 MG Oral Tablet (Roxicodone), DURABLE MEDICAL EQUIPMENT Pt with worsening disease progression. Not yet on hospice. Hoping to complete palliative radiation.No longer able to walk on her own. attempting to carry her on his back. Will set up for wheelchair and bedside commode as well as hospital bed. Given tumor burden, she requires fully electricbed to maintain positioning. Follow-up: 1 week Total time today including reviewing chart before the visit, pertinent labs, imaging reports, face to face time, and documentation time was 58 minutes. Mariela Molina DO documented in this encounter Plan of Treatment Upcoming Encounters Date Type Department Care Team (Late st Contact Info) Description 04/22/2024 3:00 PM EDT Telemedicine Family Practice [address] [place] [address] [facility] [place] [address] Mariela Molina DO [address] [place] [address] Scheduled Procedures Name Priority Associated Diagnoses Date/Ti [...] Not on filedocumented as of this encounter Visit Diagnoses Diagnosis Malignant neoplasm metastatic to both lungs (HCC)- Primary Secondary and unspecified malignant neoplasm of lymph nodes of head, 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
--- OUTSIDE RECORDS SUMMARY | 2024-04-18 05:21 | External Medical Summary | Summary of Care ---
Author Name Unknown Organization [facility] Address [address] [place] [address] Phone [phone] Care Team Providers Care Sommelier Name Role Phone Mariela Molina DO Primary Care Provider [phone] Reason for Visit * Reason Onset Date Comments Advice 04/11/2024 [place] Encounter Details Date Type Department Care Team (Late st Contact Info) Description 04/11/2024 Telephone Palliative Medicine, [facility] [address] [facility] 5th [place] [address] Services, Scheduling [address] [place] [address] Advice ([place]) Allergies Active Allergy Reactions Criticality Noted Date Comments Doxycycline Diarrhea,Nausea/vomiting 03/22/2021 Penicillins Nausea/vomiting 09/20/2018 documented as of this encounter (statuses as of 04/14/2024) Medications Medication Sig Dispensed Refills Start Date [...] hours as needed. 10/17/2023 Active Magic Mouthwash (Lidocaine-Benadr yl-Nystatin) oral solution Swish and spit 15 mL in the morning and 15 mL before bedtime. 200 mL 1 11/09/2023 Active Ergocalciferol 1.25 MG (10303 UT) Oral Capsule (Vitamin D2(Drisdol))Indic ations:Anaplastic thyroid carcinoma (HCC),Metastasis to bone (HCC),Vitamin D deficiency Take 1 Capsule by mouth every 14 days. 6 Capsule 2 12/25/2023 Active Polyethylene Glycol 3350 17 GM Oral Packet (Miralax) Take 1 Packet by mouth daily as needed for Constipation. 01/16/2024 Active Pregabalin 100 MG Oral Capsule (Lyrica)Indicatio ns:Metastasis to bone (HCC),Malignant neoplasm metastatic to both lungs (HCC),Anaplastic thyroid carcinoma (HCC) Take 1 Capsule by mouth in the morning and 1 Capsule at noon and 1 Capsule before bedtime. 90 Capsule 02/04/2024 Active Levothyroxine Sodium 100 MCG Oral Tablet (Levoxyl) Take 1 tablet by mouth once daily. 90 Tablet 3 02/11/2024 Active Lidocaine 4 % External Patch (Aspercreme)Indic ations:Cancer related pain Place 1 Patch over 12 hours topically on the skin daily. 30 Patch 02/13/2024 Active Additional Information Patient not taking.Reported on 02/21/2024 Eliquis 5 MG Oral TabletIndications :Acute deep vein thrombosis (DVT) of other vein of right upper extremity (HCC) Take 1 Tablet by mouth in the morning and 1 Tablet before bedtime. 180 Tablet 3 02/21/2024 Active Tafinlar 75 MG Oral Capsule (Dabrafenib Mesylate) Take 2 capsules (150 mg total) by mouth every 12 hours. 120 Capsule 3 03/04/2024 Active Acetaminophen 500 MG Oral Tablet (Tylenol)Indicati ons:Cancer related pain Take 2 Tablets by mouth in the morning and 2 Tablets at noon and 2 Tablets in the evening. Currently not taking. 03/21/2024 Active dexAMETHasone 4 MG Oral Tablet (Decadron)Indicat ions:Cancer related pain Take 1 Tablet by mouth 2 times a day with morning and evening meals. 30 Tablet 04/09/2024 Active Morphine Sulfate ER 30 MG Oral Tablet Extended Release (Ms Contin)Indication s:Cancer related pain Take 1 Tablet by mouth in the morning and 1 Tablet before bedtime. 28 Tablet 04/09/2024 Active oxyCODONE HCl 10 MG Oral Tablet (Roxicodone)Indic ations:Cancer related pain Take 1 Tablet by mouth every 4 hours as needed for Pain, Severe. 60 Tablet 04/09/2024 Active documented as of this encounter (statuses as of 04/14/2024) Active Problems Problem Noted Date Diagnosed Date [...] as of this encounter (statuses as of 04/14/2024) Resolved Problems Problem Noted Date Diagnosed Date Resolved Date Acute deep vein thrombosis ( DVT) of lower extremity 10/10/2022 09/25/2023 documented as of this encounter (statuses as of 04/14/2024) Immunizations Name Administration Dates Next Due COVID-19 mRNA, LNP-s, No Pre serve, 2-Dose Series ([employer]) 04/25/2021,10/12/2020,09/21/2020 COVID-19, MRNA-LNP, 23-24, P F, 50 [...] encounter Miscellaneous Notes * Telephone Encounter - Niharika Otto OSA - 04/11/2024 3:45 PM EDT Patient calling in to speak maria luisa Timmons or Dr. Mascorro in regards to Palliative care instructions while she's also going through radiation treatment. Call was warm transferred to Shanelle Isaac. documented in this encounter Plan of Treatment Upcoming Encounters Date Type Department Care Team (Late st Contact Info) Description 04/15/2024 9:00 AM EDT Scheduled Telephone Palliative Medicine, [facility] [address] [facility] 5th Floor [place] [address] [place], Nurse Palliative Medicine [facility] [address] [facility] [place] [address] 04/16/2024 11:20 AM EDT Telemedicine Family Practice 65 [facility], [address] [place] [address] Mariela Molina, DO [address] [place] [address] Scheduled Procedures Name Priority Associated Diagnoses Date/Ti [...] Documents on File Type Date Recorded Patient Nuclear Operator Expl anation POL 04/10/2024 signed on 04/09 POLST Care Teams Sommelier Relationship Specialty Start Date End Date Mariela Molina DO [address] [place] [address] PCP - General Family Medicine 02/20/24 documented as of this encounter
--- OUTSIDE RECORDS SUMMARY | 2024-04-18 05:21 | External Medical Summary | Summary of Care ---
Author Name Unknown Organization [facility] Address [address] [place] [address] Phone [phone] Care Team Providers Care Rod Bending Machine Operator Name Role Phone Mariela Molina DO Primary Care Provider Reason for Visit * Reason Comments Re-Check Encounter Details Date Type Department Care Team (Late st Contact Info) Description 04/16/2024 11:20 AM EDT Telemedicine Family Practice 65 [facility] [address] [place] [phone] Mariela Molina DO [address] [place] [address] Malignant neoplasm metastatic to both lungs (HCC)*; [...] mL 1 11/09/2023 Active Ergocalciferol 1.25 MG (38220 UT) Oral Capsule (Vitamin D2(Drisdol))Rubina cations:Anaplast ic [...] mRNA, LNP-s, No Pre serve, 2-Dose Series ([employer]) 04/25/2021,10/12/2020,09/21/2020 COVID-19, MRNA-LNP, 23-24, P F, 50 [...] No 08/24/2023 Does the household have a [facility] source of income? (Household - for ages [...] identifiers. 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 Methods to assure confidentiality were taken. Patient acknowledged consent and understanding of pr ivacy and security of the Telemedicine visit. The patient agreed to participate. SUBJECTIVE: Chief Complaint Patient presents with Re-Check HPI: Ivette Castillo is a 73 year old female who was seen over video visit today. Pt has had significant decline in functional status. 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 Her left arm is now affected. notes that he has to "regrind mill operator" carry her as her legs have not been working wellthe last 4 days. She has stairs to get to her bathroom and bedroom. She did have a hospice meeting with [facility] but elects to pursue radiation and continue [...] not taking: Reported on 02/21/2024) Magic Mouthwash (Ucrecr[employer]cl-Arsmuauz-Otheckao) oral solution Swish and spit 15 mL in the morning and15 mL before bedtime. 200 mL 1 Ergocalciferol 1.25 MG (73852 UT) Oral Capsule (Vitamin D2(Drisdol)) Take 1 [...] performed by Madisyn Montiel MD at ENDOSCOPY [facility] COLONOSCOPY, DIAGNOSTIC (RECTUM) 09/24/2018 rectal ulcer, repeat 5 yrs/COLONOSCOPY FLEXIBLE PROXIMAL DIAGNOSTIC performed by Madisyn Montiel MD at ENDOSCOPY [facility] MISCELLANEOUS ORDER mole removed from leg 1989 [...] PM EDT Telemedicine Family Practice [address] [place] [address] [place] [address] Mariela Molina DO [address] [facility] [place] [address] Scheduled Procedures Name Priority Associated Diagnoses Date/Ti [...] Documents on File Type Date Recorded Patient Senior Loss Control Specialist Expl anation POLST 04/10/2024 signed on 04/09 POLST Care Teams Rod Bending Machine Operator Relationship Specialty Start Date End Date Mariela Molina DO [address] [place] [address] PCP - General Family Medicine 02/20/24 documented as of this encounter
--- OUTSIDE RECORDS SUMMARY | 2024-04-18 05:21 | External Medical Summary | Summary of Care ---
Author Name Unknown Organization [facility] Address [address] [place] [address] Phone [phone] Care Team Providers Care Office Admin Name Role Phone Mariela Molina DO Primary Care Provider [phone] Reason for Visit * Reason Onset Date Comments Appointment 04/09/2024 Appt Monday 04/09 Encounter Details Date Type Department Care Team (Late st Contact Info) Description 04/09/2024 Telephone Family Practice [address] [facility] [address] [place] [address] Mariela Molina DO [address] [place] [address] Appointment (Appt Monday 04/09 ) Allergies Active Allergy Reactions Criticality Noted Date [...] MOUTH TWICE A DAY 180 Capsule 3 3 Active Calcium Citrate-Vitamin D3 315-6.25 MG-MCG Oral Tablet (Calcium Citrate + D3 Maximum) Take by mouth 2 times a day. Active First-Mouthwash BLM Mouth/Throat Suspension Swish and swallow 10 mL every 4 hours as needed. 4 Active Magic Mouthwash (Lidocaine-[place] dryl-Nystatin) oral solution Swish and spit 15 mL in the morning and 15 mL before bedtime. 200 mL 1 4 Active Ergocalciferol 1.25 MG (72799 UT) Oral Capsule (Vitamin D2(Drisdol))Ind ications:Anapla stic thyroid carcinoma (HCC),Metastasi s to bone (HCC),Vitamin D deficiency Take 1 Capsule by mouth every 14 days. 6 Capsule 2 4 Active Polyethylene Glycol 3350 17 GM Oral Packet (Miralax) Take 1 Packet by mouth daily as needed for Constipation. 4 Active Pregabalin 100 MG Oral Capsule (Lyrica)Indicat ions:Metastasis to bone (HCC),Malignant neoplasm metastatic to both lungs (HCC),Anaplasti c thyroid carcinoma (HCC) Take 1 Capsule by mouth in the morning and 1 Capsule at noon and 1 Capsule before bedtime. 90 Capsule 4 Active Levothyroxine Sodium 100 MCG Oral Tablet (Levoxyl) Take 1 tablet by mouth once daily. 90 Tablet 3 4 Active Lidocaine 4 % External Patch (Aspercreme)Ind ications:Cancer related pain Place 1 Patch over 12 hours topically on the skin daily. 30 Patch 4 Active Additional Information Patient not taking.Reported on 02/21/2024 Eliquis 5 MG Oral TabletIndicatio ns:Acute deep vein thrombosis (DVT) of other vein of right upper extremity (HCC) Take 1 Tablet by mouth in the morning and 1 Tablet before bedtime. 180 Tablet 3 4 Active Tafinlar 75 MG Oral Capsule (Dabrafenib Mesylate) Take 2 capsules (150 mg total) by mouth every 12 hours. 120 Capsule 3 4 Active Acetaminophen 500 MG Oral Tablet (Tylenol)Indica tions:Cancer related pain Take 2 Tablets by mouth in the morning and 2 Tablets at noon and 2 Tablets in the evening. Currently not taking. 4 Active dexAMETHasone 4 MG Oral Tablet (Decadron)Indic ations:Cancer related pain Take 1 Tablet by mouth 2 times a day with morning and evening meals. 30 Tablet 4 Active Morphine Sulfate ER 30 MG Oral Tablet Extended Release (Ms Contin)Indicati ons:Cancer related pain Take 1 Tablet by mouth in the morning and 1 Tablet before bedtime. 28 Tablet 4 Active oxyCODONE HCl 10 MG Oral Tablet (Roxicodone)Ind ications:Cancer related pain Take 1 Tablet by mouth every 4 hours as needed for Pain, Severe. 60 Tablet 4 Active Trametinib Dimethyl Sulfoxide 2 MG Oral Tablet (Mekinist)Indic ations:Anaplast ic thyroid carcinoma (HCC) Take 1 tablet by mouth in the morning. Keep refrigerated. Take on an empty stomach. 30 Tablet 5 4 04/10/20 24 Discontinued Dabrafenib Mesylate 75 MG Oral Capsule (Tafinlar)Indic ations:Anaplast ic thyroid carcinoma (HCC) Take 2 Capsules by mouth in the morning and 2 Capsules before bedtime. 120 Capsule 6 4 04/10/20 24 Discontinued(Med ication List Clean Up) Mekinist 2 MG Oral Tablet (Trametinib Dimethyl Sulfoxide) Take 1 tablet (2 mg total) by mouth daily. 30 Tablet 3 4 04/10/20 24 Discontinued(Med ication List Clean Up) documented as of this encounter (statuses as [...] mRNA, LNP-s, No Pre serve, 2-Dose Series ([employer]) 04/25/2021,10/12/2020,09/21/2020 COVID-19, MRNA-LNP, 23-24, P F, 50 [...] Telephone Encounter - Mariela Molina DO - 04/14/2024 8:50 AM EDT Noted. * Telephone Encounter - Grace Murray OSA - 04/12/2024 10:39 AM EDT Pt scheduled via video for Sunday. Pt wanted to advise Dr Molina that she is having increasing trouble swallowing. She states its her tumor pressing on her esophagus but is not sure what she can do for this. Pt has a mouthwash prescribed to her previously, thru her last treatment cycle. She states if its not , she will use that, otherwise, she will let us know. * Telephone Encounter - Ivette Downs LPN - 04/11/2024 4:47 PM EDT Will do tele video visit. Please call and schedule tele video visit. Was going to go to [facility], dr varela [place] spoke to [facility] and was decided not to go forward to [facility]. Is working with Palliative care discussed hospice care with DR Fernandez. Will be trying radiation possibly [place] she needed to go into hospice care but now not sure as she may want to continue "the cancer meds" Thank you * Telephone Encounter - Ivette Downs LPN - 04/10/2024 1:50 PM EDT Called, not accepting calls. Will continue to try to call. Thank you * Telephone Encounter - Ivette Downs LPN - 04/09/2024 5:02 PM EDT Called and spoke to spouse advised will call tomorrow. Thank you * Telephone Encounter - Mariela Molina DO - 04/09/2024 3:44 PM EDT That is really up to her if she would like to come in or not. I can do a telephone call or video ifthat is easier. * Telephone Encounter - Grace Murray OSA - 04/09/2024 2:42 PM EDT Pt was contacted to confirm her appt with Dr Molina this Sunday. Pt stated she may need to cancel this appt. She states she met with palliative med this morning andmay be going on Hospice. She is not sure that she needs this appt. Please contact her to advise. documented in this encounter Plan of Treatment Upcoming Encounters Date Type Department Care Team (Late st Contact Info) Description 04/15/2024 9:00 AM EDT Scheduled Telephone Palliative Medicine, [facility] [address] [facility] [address]th [place] [address] Tn, Nurse Palliative Medicine [address] [place] [address] 04/16/2024 11:20 AM EDT Telemedicine Family Practice [facility] [place] [address] [place] [address] Mariela Molina DO [address] [place] [address] Scheduled Procedures Name Priority Associated Diagnoses Date/Ti [...] Documents on File Type Date Recorded Patient Education Officer Expl anation POLST 04/10/2024 signed on 04/09 POLST Care Teams Office Admin Relationship Specialty Start Date End Date Mariela Molina DO [address] [employer] [facility] [place] [address] PCP - General Family Medicine 02/20/24 documented as of this encounter
--- OUTSIDE RECORDS SUMMARY | 2024-04-18 05:21 | External Medical Summary | Summary of Care ---
Author Name Unknown Organization [facility] Address [address] [place] [address] Phone [phone] Care Team Providers Care Producer Director Name Role Phone Mariela Molina DO Primary Care Provider + [phone] Reason for Visit * Reason Onset Date Comments Palliative Care Follow-up 04/11/2024 Encounter Details Date Type Department Care Team (Late st Contact Info) Description 04/11/2024 Telephone Palliative Medicine, [facility] [address] [facility] [address] [place] [address] Services, Scheduling [address] [place] [address] Palliative Care Follow-up Allergies Active Allergy Reactions Criticality Noted Date Comments Doxycycline Diarrhea,Nausea/vomiting 03/22/2021 Penicillins Nausea/vomiting 09/20/2018 documented as of this encounter (statuses as of 04/15/2024) Medications Medication Sig Dispensed Refills Start Date [...] mL 1 11/09/2023 Active Ergocalciferol 1.25 MG (17932 UT) Oral Capsule (Vitamin D2(Drisdol))Indic ations:Anaplastic thyroid [...] as of this encounter (statuses as of 04/15/2024) Active Problems Problem Noted Date Diagnosed Date [...] as of this encounter (statuses as of 04/15/2024) Resolved Problems Problem Noted Date Diagnosed Date Resolved Date Acute deep vein thrombosis ( DVT) of lower extremity 10/10/2022 09/25/2023 documented as of this encounter (statuses as of 04/15/2024) Immunizations Name Administration Dates Next Due COVID-19 mRNA, LNP-s, No Pre serve, 2-Dose Series ([employer]) 04/25/2021,10/12/2020,09/21/2020 COVID-19, MRNA-LNP, 23-24, P F, 50 [...] encounter Miscellaneous Notes * Telephone Encounter - Shanelle Isaac LPN - 04/14/2024 12:21 PM EDT LATE ENTRY: 04/11: spoke with patient and . Hospice was to come out Sunday evening. They were concerned as there was the possibility of getting 5 radiation treatments. Informed her that most hospice agencies will cover 5 fractions of radiation. However I told her she would ultimately need to discuss withhospice Today: Call to patient/ to see how visit with hospice went and what the plan is No answer Left message requesting return call to [phone] * Telephone Encounter - Tai Mullins OSA - 04/11/2024 8:36 AM EDT Norma from [facility] called for Medicare/insurance member Id number in order to verify pt insurance. documented in this encounter Plan of Treatment Upcoming Encounters Date Type Department Care Team (Late st Contact Info) Description 04/16/2024 11:20 AM EDT Telemedicine Family Practice [address] [place] [address] [place] [id number] Mariela Molina DO [address] [place] [address] Scheduled Procedures Name Priority Associated Diagnoses Date/Ti [...] Documents on File Type Date Recorded Patient Liaison Engineer Expl anation POLST 04/10/2024 signed on 04/09 POLST Care Teams Producer Director Relationship Specialty Start Date End Date Mariela Molina DO [address] [place] [address] PCP - General Family Medicine 02/20/24 documented as of this encounter
--- OUTSIDE RECORDS SUMMARY | 2024-04-18 05:21 | External Medical Summary | Summary of Care ---
Author Name Unknown Organization [facility] Address [address] [place] [address] Phone [phone] Care Team Providers Care Gas Mask Assembler Name Role Phone Mariela Molina DO Primary Care Provider [phone] Reason for Visit * Reason Onset Date Comments Medication Question 04/14/2024 Encounter Details Date Type Department Care Team (Late st Contact Info) Description 04/14/2024 Telephone Hematology/Oncology [facility] [place] [address] [place] [address] Romaine Rolon MD [address] [place] [address] Medication Question Allergies Active Allergy Reactions Criticality [...] mL 1 11/09/2023 Active Ergocalciferol 1.25 MG (65008 UT) Oral Capsule (Vitamin D2(Drisdol))Rubina cations:Anaplast ic [...] mRNA, LNP-s, No Pre serve, 2-Dose Series ([employer]) 04/25/2021,10/12/2020,09/21/2020 COVID-19, MRNA-LNP, 23-24, P F, 50 [...] encounter Miscellaneous Notes * Telephone Encounter - Isatu Gagnon RN [...] week * Telephone Encounter - Stephy Nunez [facility] - 04/14/2024 4:26 PM EDT Hello! I spoke with pt today regarding her mekinist/tafinlar. There seems to be confusion about her hospice decision. I spoke with the patient this afternoon on the phone and she stated she decided to NOT pursue hospice at this time and needed a refill on her oral chemotherapy Please advise and lopp back in [facility] if refills needed Patient could be reached at [phone] Stephy Dawson, Pharm. D. Clinical Specialty Pharmacist [facility] 04/14/2024, 4:27 PM documented in this encounter Plan of Treatment Upcoming Encounters Date Type Department Care Team (Late st Contact Info) Description 04/22/2024 3:00 PM EDT Telemedicine Family Practice [address] [place] [address] [place] [address] Mariela Molina DO [address] [place] [address] Scheduled Procedures Name Priority Associated Diagnoses Date/Ti [...] Documents on File Type Date Recorded Patient Beaver Trapper Expl anation POLST 04/10/2024 signed on 04/09 POLST Care Teams Gas Mask Assembler Relationship Specialty Start Date End Date Mariela Molina DO [address] [place] [address] PCP - General Family Medicine 02/20/24 documented as of this encounter
--- OUTSIDE RECORDS SUMMARY | 2024-04-18 05:22 | External Medical Summary | Summary of Care ---
Author Name Unknown Organization [facility] Address [address] [place] [address] Phone [phone] Care Team Providers Care Educational Adviser Name Role Phone Mariela Molina DO Primary Care Provider [phone] Reason for Visit * Reason Comments Follow Up Encounter Details Date Type Department Care Team (Late st Contact Info) Description 04/09/2024 11:30 AM EDT Office Visit Palliative Medicine [facility] [address] [place] [address] Britt Mascorro MD [address] [place] [address] Cancer related pain* Allergies Active Allergy Reactions Criticality Noted Date Comments Doxycycline Diarrhea,Nausea/vomiting 03/22/2021 Penicillins Nausea/vomiting 09/20/2018 documented as of this encounter (statuses as of 04/09/2024) Medications Medication Sig Dispensed Refills Start Date [...] mL 1 11/09/2023 Active Ergocalciferol 1.25 MG (17061 UT) Oral Capsule (Vitamin D2(Drisdol))Rubina cations:Anaplast ic thyroid carcinoma (HCC),Metastasis to bone (HCC),Vitamin D deficiency Take 1 Capsule by mouth every 14 days. 6 Capsule 2 12/25/2023 Active Polyethylene Glycol 3350 17 GM Oral Packet (Miralax) Take 1 Packet by mouth daily as needed for Constipation. 01/16/2024 Active Trametinib Dimethyl Sulfoxide 2 MG Oral Tablet (Mekinist)Indica tions:Anaplastic thyroid carcinoma (HCC) Take 1 tablet by mouth in the morning. Keep refrigerated. Take on an empty stomach. 30 Tablet 5 02/04/2024 Active Additional Information Patient taking differently:2 mg Oral Daily(AM),Takes at night, Reported on 02/21/2024 Dabrafenib Mesylate 75 MG Oral Capsule (Tafinlar)Indica tions:Anaplastic thyroid carcinoma (HCC) Take 2 Capsules by mouth in the morning and 2 Capsules before bedtime. 120 Capsule 6 02/04/2024 Active Pregabalin 100 MG Oral Capsule (Lyrica)Indicati [...] 12 hours. 120 Capsule 3 03/04/2024 Active Mekinist 2 MG Oral Tablet (Trametinib Dimethyl Sulfoxide) Take 1 tablet (2 mg total) by mouth daily. 30 Tablet 3 03/04/2024 Active Acetaminophen 500 MG Oral [...] for Pain, Severe. 60 Tablet 04/09/2024 Active oxyCODONE HCl 10 MG Oral Tablet (Roxicodone)Rubina cations:Cancer related pain Take 1 Tablet by mouth every 4 hours as needed for Pain, Severe. 60 Tablet 03/21/2024 4 Discontinue d(Refill) Morphine Sulfate ER 30 MG Oral Tablet Extended Release (Ms Contin)Indicatio ns:Cancer related pain Take 1 Tablet by mouth in the morning and 1 Tablet before bedtime. 28 Tablet 03/26/2024 4 Discontinue d(Refill) documented as of this encounter (statuses as of 04/09/2024) Active Problems Problem Noted Date Diagnosed Date [...] as of this encounter (statuses as of 04/09/2024) Resolved Problems Problem Noted Date Diagnosed Date Resolved Date Acute deep vein thrombosis ( DVT) of lower extremity 10/10/2022 09/25/2023 documented as of this encounter (statuses as of 04/09/2024) Immunizations Name Administration Dates Next Due COVID-19 mRNA, LNP-s, No Pre serve, 2-Dose Series (2theloo) 04/25/2021,10/12/2020,09/21/2020 COVID-19, MRNA-LNP, 23-24, P F, 50 [...] money to buy more. Never true 08/24/19 Within the past 12 months, t he [...] on file documented as of this encounter Last Filed Vital Signs Vital Sign Reading Time Taken Comments Blood Pressure 110/73 04/09/2024 11:32 AM EDT Pulse 89 04/09/2024 11:32 AM EDT Temperature 36.3 C (97.3 F) 04/09/2024 11:32 AM E DT Respiratory Rate - - Oxygen Saturation 96% 04/09/2024 11:32 AM EDT Inhaled Oxygen Concentration - - Weight 41.7 kg (92 lb) 04/09/2024 11:32 AM EDT Height - - Body Mass Index 15.31 02/21/2024 3:58 PM EDT documented in this encounter Patient Instructions * Patient Instructions* Britt Mascorro MD - 04/09/2024 12:14 PM EDT Our Palliative Medicine Clinic is available Sunday through Sunday during business hours, so we are unavailable on weekends and holidays. Please ensure that you request refills early in the week as itmay take 1-2 days for them to be addressed and filled, for authorizations to be approved, or for the pharmacy to order them if needed. You can contact our office at [phone], which is our clinic in [place], or you can message us on [employer]. If you have an emergency outside of these hours, we recommend calling your primary care clinic, Oncology office, or going to the ER if you have a medical emergency. 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 Since last visit, things have worsened a bit. She has no function of the R arm and now has tingling in the L hand. She can barely lift her head. Having pain butalso very fatigued. In summary, she is increasingly miserable and wants to focus on comfort overall. Will refer to hospice today with [facility]. If palliative radiation is an option, she would consider it but is not sure. Palliative symptoms: Pain: Severe Located at: R arm and sometimes R upper chest Currently taking: MS Contin 30mg with Oxy 10 frequently Quality: Deep/aching Nausea/Vomiting: no Appetite: poor Constipation: no Confusion: no Sleep issues: no Dyspnea: no Mood issues: tearful at times Examination: BP 110/73 (BP Site: Left Arm, BP Position: Sitting, BP Cuff Size: Pediatric) | Pulse 89 | Temp 36.3C (97.3 F) (Tympanic) | Wt 41.7 kg (92 lb) | LMP 07/12/2000 | SpO2 96% | BMI 15.31 kg/m | BSA1.38 m Constitutional: no acute distress, chronically ill HENT: normocephalic, atraumatic. Eyes: anicteric, sclera and conjunctiva normal. Neck: no stridor Chest: normal respiratory effort Abdominal: nondistended Extremities: no edema Data Review: Lab / Imaging Results: MRI C Spine shows disease progression MRI 03/28/24 IMPRESSION: 1. Further interval vertebral body height loss and retropulsion at C7 associated with pathologic fracture. In conjunction with new anterolisthesis of C6 on C7 there is impingement on the lower cervical cord with new cord signal abnormality suggestive of edema at the C7 level. 2. Interval increase in size of large necrotic neck mass on the right encroaching on the lung apex,on the neural foramina and prevertebral space on the right, and also crossing the midline to encroach on the left-sided foramina at C7-T1 and C6-7. Information obtained from Sunday for collateral history Discussion with other team members: I discussed patient with Dr Rolon, [facility] Rad Onc Decision-making Capacity: Does Patient have Decisional Capacity? y Does Patient have a Healthcare Agent? Y, Sunday Advanced Care Planning (see ACP Tab): She is clear she is a DNR She wants to focus on COMFORT She is ok with abx for comfort Does not want artificial nutrition, ok with IV hydration POLST completed, original given to patient, copy taken to be put into EMR under ACP docs but also scanned into Chart Review --> Scans OOH DNR also completed ASSESSMENT/PLAN: Ivette Castillo is a 73 year old female seen in follow-up for goals of care and pain and symptom management. Anaplastic thyroid carcinoma - Msg sent to Dr Azucena Rolon at [facility], they are working on getting a plan together, may offer 5 sessions of radiation, he will also call her. Agrees with steroids. - Dexamethasone 4mg BID Cancer related pain - Continue MS Contin 30mg BID - could increase to 60mg or will let hospice decide what to do - Continue Oxycodone 10mg - Add dexamethasone 4mg BID Goals of care - Wants to be comfortable. - POLST / OOH DNR completed - They asked about options for End of life Option Act - currently not legal in [place], would need to pascale resident of a state where it is allowed, and also need to self administer medications. Reviewed benefits of hospice instead and how helpful their support is. They agree w/hospice referral. - Code status if admitted: DNR Follow up in PRN. Nurse call in 1-2 weeks. They are able to do video visits. . Britt Mascorro MD [facility] Palliative Medicine [phone] documented in this encounter Nursing Notes * Homa Roa, MED ASSIST - 04/09/2024 11:35 AM EDT Patient identifed by name and birthdate Do you have any concerns about pain management for today's visit? Yes. Patient instructed to discuss pain concerns with provider during the visit today Living Will or Advance Directive for Health Care as noted on the problem list. [facility] is a way you can talk to your provider on line through e-mail. Would you like to sign up? I can activate it for you? ALREADY ACTIVE Filed Vitals: 04/09/24 1132 BP: 110/73 Pulse: 89 Temp: 36.3 C (97.3 F) TempSrc: Tympanic SpO2: 96% Weight: 41.7 kg (92 lb) Patient was instructed to not get up on the exam table/exam chair until directed and assisted by their provider; patient is to remain seated in the chair/ wheelchair/ exam table/ exam chair for fall prevention and safety reasons. Patient is aware to have assistance to step down off exam table/exam chair with personnel. Patient voiced full comprehension of instructions. Pt reports that she is having pain and tingling/numbness in her left arm. Pt stated she is worried that the cancer has spread to that arm. She also stated that she is having trouble eating/swallowing. documented in this encounter Miscellaneous Notes * ACP (Advance Care Planning) - Britt Mascorro MD - 04/09/2024 1:36 PM EDT Images from the original note were not included. Advance Care Planning Patient-centered Communication 04/09/2024 The patient/surrogate voluntarily agreed to participate in advance care planning discussion. They were advised that this is a separate service which may incur out of pocket cost in the form of copayment and/or deductibles. Location: Clinic Individual(s) present for conversation: Spouse Decisions Synopsis [employer] Most Recent Value Past ~10 years 04/09/2024 13:36 Decisions CPR decision: Declines CPR 04/09/2024 Declines CPR Intubation/Mechanical Ventilation decision: Declines Intubation/mechanical ventilation 04/09/2024 Declines Intubation/mechanical ventilation Additional Comments Discerning What Matters Most to the Patient: Synopsis [employer] Most Recent Value Past ~10 years 04/09/2024 13:36 Discerning What Matters Most to the Patient Their current SYMPTOMS include: Pain;Tiredness 04/09/2024 Pain;Tiredness The patient's HOPES are: with dignity (define below) 04/09/2024 with dignity (define below) Source: Content from Respecting Choices Program Aligning Care With What Matters Most: Synopsis [employer] Most Recent Value Past ~10 years 04/09/2024 13:36 Aligning Care With What Matters Most Interventions/Choices: CPR;Intubation/mechanical ventilation 04/09/2024 CPR;Intubation/mechanical ventilation Rationale for Decisions Advanced Care Planning (see ACP Tab): She is clear she is a DNR She wants to focus on COMFORT She is ok with abx for comfort Does not want artificial nutrition, ok with IV hydration POLST completed, original given to patient, copy taken to be put into EMR under ACP docs but also scanned into Chart Review --> Scans OOH DNR also completed Source: Content from Respecting Choices Program 18 minutes spent in direct [id number] discussion today, Britt Mascorro MD documented in this encounter Plan of Treatment Upcoming Encounters Date Type Department Care Team (Late st Contact Info) Description 04/11/2024 3:00 PM EDT Office Visit Family Practice [address] [place] [address] [place] [address] Mariela Molina, [address] [place] [address] Scheduled Procedures Name Priority Associated Diagnoses Date/Ti [...] as of this encounter Visit Diagnoses Diagnosis Cancer related pain- Primary Neoplasm related pain (acute) (chronic) documented in this encounter Care Teams Educational Adviser Relationship Specialty Start Date End Date Mariela Molina DO [address] [place] [address] PCP - General Family Medicine 02/20/24 documented as of this encounter"
--- OUTSIDE RECORDS SUMMARY | 2024-04-18 05:22 | External Medical Summary | Summary of Care ---
Author Name Unknown Organization [facility] Address [address] [place] [address] Phone [phone] Care Team Providers Care Office Chair Assembler Name Role Phone Mariela Molina DO Primary Care Provider [phone] Reason for Visit * Reason Comments Follow Up Encounter Details Date Type Department Care Team (Late st Contact Info) Description 04/09/2024 11:30 AM EDT Office Visit Palliative Medicine [facility] [address] [place] [address] Britt Mascorro MD [address] [place] [address] Cancer related pain* Allergies Active [...] mL 1 11/09/2023 Active Ergocalciferol 1.25 MG (46254 UT) Oral Capsule (Vitamin D2(Drisdol))Rubina cations:Anaplast ic [...] mRNA, LNP-s, No Pre serve, 2-Dose Series (Slantrange) 04/25/2021,10/12/2020,09/21/2020 COVID-19, MRNA-LNP, 23-24, P F, 50 [...] needed. You can contact our office at [phone], which is our clinic in [place], or you can message us on [employer]. If you have an emergency outside of these hours, we recommend calling your primary care clinic, Oncology office, or going to the ER if you have a medical emergency. Take dexamethasone WITH FOOD You will hear from a hospice team about next steps documented in this encounter Progress Notes * Britt Mascorro MD - 04/09/2024 11:30 AM EDT Palliative Medicine Outpatient Progress Note [facility] Palliative Medicine Outreach [address] [place] [address] Name: Ivette Castillo Date: 04/09/2024 HPI: Ivette [...] overall. Will refer to hospice today with [facility]. If palliative radiation is an [...] members: I discussed patient with Dr Rolon, [facility] Rad Onc Decision-making Capacity: Does Patient have [...] Msg sent to Dr Azucena Rolon at [facility], they are working on getting a plan [...] Option Act - currently not legal in [place], would need to pascale resident of a state where it is allowed, and also need to self administer medications. Reviewed benefits of hospice instead and how helpful their support is. They agree w/hospice referral. - Code status if admitted: DNR Follow up in PRN. Nurse call in 1-2 weeks. They are able to do video visits. . Britt Mascorro MD [facility] Palliative Medicine [phone] documented in this encounter Nursing Notes * [...] Individual(s) present for conversation: Spouse Decisions Synopsis [employer] Most Recent Value Past ~10 years 04/09/2024 [...] Choices Program 18 minutes spent in direct [id number] discussion today, Britt Mascorro MD documented in this encounter Plan of Treatment Upcoming Encounters Date Type Department Care Team (Late st Contact Info) Description 04/11/2024 3:00 PM EDT Office Visit Family Practice [address], [place] [address] [place] [address] Mariela Molina, [address] [place] [address] Scheduled Procedures Name Priority Associated Diagnoses Date/Ti [...] (chronic) documented in this encounter Care Teams Office Chair Assembler Relationship Specialty Start Date End Date Mariela Molina DO [address] [place] [address] PCP - General Family Medicine 02/20/24 documented as of this encounter"
--- OUTSIDE RECORDS SUMMARY | 2024-04-18 05:22 | External Medical Summary | Summary of Care ---
Author Name Unknown Organization [facility] Address [address] [place] [address] Phone [phone] Care Team Providers Care Food Scientist Name Role Phone Mariela Molina DO Primary Care Provider Reason for Visit * Reason Onset Date Comments Appointment 04/09/2024 Appt Monday 04/09 Encounter Details Date Type Department Care Team (Late st Contact Info) Description 04/09/2024 Telephone Family Practice [address] [facility] [address] [place] [address] Mariela Molina DO [address] [place] [address] Appointment (Appt Monday 04/09 ) Allergies Active Allergy Reactions Criticality Noted Date Comments Doxycycline Diarrhea,Nausea/vomiting 03/22/2021 Penicillins Nausea/vomiting 09/20/2018 documented as of this encounter (statuses as of 04/11/2024) Medications Medication Sig Dispensed Refills Start Date [...] hours as needed. 4 Active Magic Mouthwash (Lidocaine-[place] dryl-Nystatin) oral solution Swish and spit 15 mL in the morning and 15 mL before bedtime. 200 mL 1 4 Active Ergocalciferol 1.25 MG (01076 UT) Oral Capsule (Vitamin D2(Drisdol))Ind ications:Anapla stic [...] as of this encounter (statuses as of 04/11/2024) Active Problems Problem Noted Date Diagnosed Date [...] as of this encounter (statuses as of 04/11/2024) Resolved Problems Problem Noted Date Diagnosed Date Resolved Date Acute deep vein thrombosis ( DVT) of lower extremity 10/10/2022 09/25/2023 documented as of this encounter (statuses as of 04/11/2024) Immunizations Name Administration Dates Next Due COVID-19 mRNA, LNP-s, No Pre serve, 2-Dose Series (Ecast) 04/25/2021,10/12/2020,09/21/2020 COVID-19, MRNA-LNP, 23-24, P F, 50 [...] encounter Miscellaneous Notes * Telephone Encounter - Ivette Downs LPN - 04/11/2024 4:47 PM EDT Will do tele video visit. Please call and schedule tele video visit. Was going to go to [facility], dr nichole Cline spoke to Tom and was decided not to go forward to [facility]. Is working with Palliative care discussed hospice care with DR Fernandez. Will be trying radiation possibly [place] she needed to go into hospice care [...] 9:00 AM EDT Scheduled Telephone Palliative Medicine, [facility] [address] [facility] 5th Floor [place] [id number] [place], Nurse Palliative Medicine [facility] 5th [address] [facility] [place] [address] Scheduled Procedures Name Priority Associated Diagnoses Date/Ti [...] Documents on File Type Date Recorded Patient Fleece Tier Expl anation POLST 04/10/2024 signed on 04/09 POLST Care Teams Food Scientist Relationship Specialty Start Date End Date Mariela Molina DO [address] [facility] [place] [address] PCP - General Family Medicine 02/20/24 documented as of this encounter
--- OUTSIDE RECORDS SUMMARY | 2024-04-18 05:22 | External Medical Summary | Summary of Care ---
Author Name Unknown Organization [facility] Address [address] [place] [address] Phone [phone] Care Team Providers Care Potato Spotter Name Role Phone Mariela Molina DO Primary Care Provider [phone] Reason for Visit * Reason Onset Date Comments Appointment 04/09/2024 Appt Monday 04/09 Encounter Details Date Type Department Care Team (Late st Contact Info) Description 04/09/2024 Telephone Family Practice [facility] [address] [place] [address] Mariela Molina DO [address] [place] [address] Appointment (Appt Monday 04/09 ) Allergies Active Allergy Reactions Criticality Noted Date Comments Doxycycline Diarrhea,Nausea/vomiting 03/22/2021 Penicillins Nausea/vomiting 09/20/2018 documented as of this encounter (statuses as of 04/10/2024) Medications Medication Sig Dispensed Refills Start Date [...] hours as needed. 4 Active Magic Mouthwash (Lidocaine-[place] dryl-Nystatin) oral solution Swish and spit 15 mL in the morning and 15 mL before bedtime. 200 mL 1 4 Active Ergocalciferol 1.25 MG (25629 UT) Oral Capsule (Vitamin D2(Drisdol))Ind ications:Anapla stic [...] as of this encounter (statuses as of 04/10/2024) Active Problems Problem Noted Date Diagnosed Date [...] as of this encounter (statuses as of 04/10/2024) Resolved Problems Problem Noted Date Diagnosed Date Resolved Date Acute deep vein thrombosis ( DVT) of lower extremity 10/10/2022 09/25/2023 documented as of this encounter (statuses as of 04/10/2024) Immunizations Name Administration Dates Next Due COVID-19 mRNA, LNP-s, No Pre serve, 2-Dose Series ([employer]) 04/25/2021,10/12/2020,09/21/2020 COVID-19, MRNA-LNP, 23-24, P F, 50 [...] 9:00 AM EDT Scheduled Telephone Palliative Medicine, [address] 5[address] Floor [place] [address] [place], Nurse Palliative Medicine [address] [place] [address] Scheduled Procedures Name Priority Associated Diagnoses Date/Ti [...] Documents on File Type Date Recorded Patient Dietary Cook Expl anation POLST 04/10/2024 signed on 04/09 POLST Care Teams Potato Spotter Relationship Specialty Start Date End Date Mariela Molina DO [address] [place] [address] PCP - General Family Medicine 02/20/24 documented as of this encounter
--- OUTSIDE RECORDS SUMMARY | 2024-04-18 05:22 | External Medical Summary | Summary of Care ---
Author Name Unknown Organization [facility] Address [address] [place] [address] Phone [phone] Care Team Providers Care Practical Nurse Clinical Coordinator Name Role Phone Mariela Molina DO Primary Care Provider [phone] Reason for Visit * Reason Onset Date Comments Test Results Lab 04/01/2024 Encounter Details Date Type Department Care Team (Late st Contact Info) Description 04/01/2024 Telephone Hematology/Oncology Cathy Queenie [place] [address] [place] [address] Romaine Rolon MD [address] [place] [address] Test Results Lab Allergies Active Allergy Reactions Criticality Noted Date Comments Doxycycline Diarrhea,Nausea/vomiting 03/22/2021 Penicillins Nausea/vomiting 09/20/2018 documented as of this encounter (statuses as of 04/03/2024) Medications Medication Sig Dispensed Refills Start Date [...] mL 1 11/09/2023 Active Ergocalciferol 1.25 MG (18019 UT) Oral Capsule (Vitamin D2(Drisdol))Indic ations:Anaplastic thyroid carcinoma (HCC),Metastasis to bone (HCC),Vitamin D deficiency Take 1 Capsule by mouth every 14 days. 6 Capsule 2 12/25/2023 Active Polyethylene Glycol 3350 17 GM Oral Packet (Miralax) Take 1 Packet by mouth daily as needed for Constipation. 01/16/2024 Active Trametinib Dimethyl Sulfoxide 2 MG Oral Tablet (Mekinist)Indicat ions:Anaplastic thyroid carcinoma (HCC) Take 1 tablet by mouth in the morning. Keep refrigerated. Take on an empty stomach. 30 Tablet 5 02/04/2024 Active Additional Information Patient taking differently:2 mg Oral Daily(AM),Takes at night, Reported on 02/21/2024 Dabrafenib Mesylate 75 MG Oral Capsule (Tafinlar)Indicat ions:Anaplastic thyroid carcinoma (HCC) Take 2 Capsules by mouth in the morning and 2 Capsules before bedtime. 120 Capsule 6 02/04/2024 Active Pregabalin 100 MG Oral Capsule (Lyrica)Indicatio [...] mouth daily. 30 Tablet 3 03/04/2024 Active oxyCODONE HCl 10 MG Oral Tablet (Roxicodone)Indic ations:Cancer related pain Take 1 Tablet by mouth every 4 hours as needed for Pain, Severe. 60 Tablet 03/21/2024 Active Acetaminophen 500 MG Oral Tablet (Tylenol)Indicati ons:Cancer related pain Take 2 Tablets by mouth in the morning and 2 Tablets at noon and 2 Tablets in the evening. Currently not taking. 03/21/2024 Active Morphine Sulfate ER 30 MG Oral Tablet Extended Release (Ms Contin)Indication s:Cancer related pain Take 1 Tablet by mouth in the morning and 1 Tablet before bedtime. 28 Tablet 03/26/2024 Active documented as of this encounter (statuses as of 04/03/2024) Active Problems Problem Noted Date Diagnosed Date [...] as of this encounter (statuses as of 04/03/2024) Resolved Problems Problem Noted Date Diagnosed Date Resolved Date Acute deep vein thrombosis ( DVT) of lower extremity 10/10/2022 09/25/2023 documented as of this encounter (statuses as of 04/03/2024) Immunizations Name Administration Dates Next Due COVID-19 mRNA, LNP-s, No Pre serve, 2-Dose Series ([employer]) 04/25/2021,10/12/2020,09/21/2020 COVID-19, MRNA-LNP, 23-24, P F, 50 [...] 08/24/2023 Does the household have a re lar source of income? (Household - for ages [...] on file Are you (or your family) idonisio eless or worried that you might be [...] Telephone Encounter - Shanelle Isaac LPN - 04/03/2024 11:00 AM EDT Spoke with patient She can come 04/09, but only around 1130 Scheduled * Telephone Encounter - Shanelle Isaac LPN - 04/02/2024 10:22 AM EDT Sent myg to coordinate next visit * Telephone Encounter - Isatu Gagnon RN - 04/02/2024 9:[address] Rolon/ Dr Mascorro: NIYAH on MyG "Celio Leija/Dr. Rolon, Thanks. Appreciate the good news about the blood work. Unfortunately, the cancer seems especially aggressive and over the last week I've noticed my left arm getting weaker in terms of carrying things. Also, over the last few weeks the leftmost 2 fingers on my left hand have started to feel tingly. I have been keeping in touch with Dr. Mascorro and hSanelle about my palliative care and their pain suggestions helped me get through my MRI. Delia Castillo" * Telephone Encounter - Liss Quintanilla LPN - 04/01/2024 9:28 AM EDT My G sent. * Telephone Encounter - Liss Quintanilla LPN - 04/01/2024 9:24 AM EDT ----- Message from Romaine Rolon MD sent at 04/01/2024 6:18 AM EDT ----- Blood workup done on 03/27/2024: - WBC 4600, H&H of 10.6/34.7, platelet count of 212,000 - BUN/Creat: 21/1.0 - AST 20, ALT 6, alkaline phosphatase 145, bilirubin level 0.4 - TSH -> 31.9, free T4 -> 1.3. Overall stable blood test, normal free T4 level. She will continue Levoxyl 100 microgram once a day. She will continue to have follow-up with palliative care. documented in this encounter Plan of Treatment Upcoming Encounters Date Type Department Care Team (Late st Contact Info) Description 04/08/2024 9:45 AM EDT Pharmacy Pharmacy Hematology Oncology [facility] [place] [address] [place] [address] [facility] Hem/Onc [address] [place] [address] 04/09/2024 11:30 AM EDT Office Visit Palliative Medicine [facility] [address] [place] [address] Britt Mascorro MD [address] [place] [phone] 04/11/2024 3:00 PM EDT [facility] [address] [place] [address] Mariela Molina DO [address] [place] [address] Scheduled Procedures Name Priority Associated Diagnoses Date/Ti [...] Not on filedocumented as of this encounter Care Teams Practical Nurse Clinical Coordinator Relationship Specialty Start Date End Date Mariela Molina DO [address] [place] [address] PCP - General Family Medicine 02/20/24 documented as of this encounter
--- OUTSIDE RECORDS SUMMARY | 2024-04-18 05:22 | External Medical Summary | Summary of Care ---
Author Name Unknown Organization [facility] Address [address] [place] [address] Phone [phone] Care Team Providers Care Legal Aide Name Role Phone Mariela Molina DO Primary Care Provider [phone] Reason for Visit * Reason Comments Medication Management Encounter Details Date Type Department Care Team (Late st Contact Info) Description 04/08/2024 9:45 AM EDT Pharmacy Pharmacy Hematology Oncology [facility] [address] [place], [place] [id number] [facility] Hem/Onc [address] [place], [place] [id number] Anaplastic thyroid carcinoma (HCC)* Allergies Active Allergy Reactions Criticality Noted Date [...] hours as needed. 4 Active Magic Mouthwash (Lidocaine-[place] dryl-Nystatin) oral solution Swish and spit 15 mL in the morning and 15 mL before bedtime. 200 mL 1 4 Active Ergocalciferol 1.25 MG (86828 UT) Oral Capsule (Vitamin D2(Drisdol))Ind ications:Anapla stic [...] the evening. Currently not taking. 4 Active Trametinib Dimethyl Sulfoxide 2 MG [...] mRNA, LNP-s, No Pre serve, 2-Dose Series ([employer]) 04/25/2021,10/12/2020,09/21/2020 COVID-19, MRNA-LNP, 23-24, P F, 50 [...] as of this encounter Progress Notes * Jackie Acuna, [facility] - 04/10/2024 11:49 AM EDT MEDICATION THERAPY MANAGEMENT DABRAFENIB // TRAMETINIB TREATMENT PROGRESS NOTE Ivette Castillo [phone] Patient Phone Numbers : Sunday Communication: Chart review Treatment: Medication: Dabrafenib // Trametinib (Tafinlar // Mekinist) Indication/Staging/Diagnosis Code: anaplastic thyroid carcinoma, BRAF+ / C73 Dose: 150mg BID // 2mg daily (DI 07/13/23) Administration: empty stomach (1 hour before or 2 hours after a meal) Start Date: ~10/2022 Primary Watch And Clock Repair Clerk/Oncologist: Dr. 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 02/27/23: dabrafenib dose reduced to 75mg BID due to elevated LFTs 07/13/23: dabrafenib dose increased to 150mg BID Interval History: Per OV 01/17/23, pt started dabrafenib/trametinib 10/2022 under [facility] recommendations Per MyG 01/22/23, pt to decrease prednisone by 10mg every week pending hepatotoxicity Per 02/05/23 MTM addendum, pt advised to reduce prednisone to 5mg daily Per [facility] OV 02/20/23, increase levothyroxine to 100mcg daily Per OV 03/09/23, once LFTs further improve, will change prednisone to 5mg every other day x 1 week then stop Per TE 03/15/23, pt did not receive MTM message 03/13/23 about prednisone taper and started prednisone 5mg every other day 03/16/23 Per TE 04/25/23, pt stopped prednisone and advised to repeat labs in 2 weeks Per MyG 07/10/23, pt advised to increase dabrafenib to 150mg BID due to disease progression Per MyG 07/18/23 responses, pt states she was advised by [facility] provider Dr. Hernandez she may benefit frombinimetinib/encorafenib to avoid her chills/shakes Per MyG 10/12/23, pt referred to specialist at [facility] Per MyG 10/12/23 addendum 10/17/23, pt to undergo RT for additional treatment Patient completed 2 weeks of radiation in October 2023 Changes to medication list since last visit? No Assessment and Plan: Per TE 04/09/24, pt transferring to hospice MTM to discharge pt from clinic at this time Jackie Acuna, PharmD, BCOP Clinical Pharmacist, [facility] Oral Chemotherapy [facility] 04/10/2024, 11:50 AM Time Spent on Encounter: 6 - 10 minutes Encounter Group: Oncology Encounter Interventions Item Category: Oral Chemotherapy Dabrafenib/Trametinib Problem/Rationale: Indication: Unnecessary medication therapy - No medical indication at this time Pharmacist Intervention(s): Medication discontinued and Medication reconciliation Magnitude of Intervention: Modification of medication for asymtomatic patients (Level 2) documented in this encounter Plan of Treatment Upcoming Encounters Date Type Department Care Team (Late st Contact Info) Description 04/11/2024 3:00 PM EDT Office Visit Family Practice [address], [place] [address] [place] [address] Mariela Molina DO [address] [place] [address] 04/15/2024 9:00 AM EDT Scheduled Telephone Palliative Medicine, [facility] [address] [facility] 5th [place] [address] [place], Nurse Palliative Medicine [address] [address] Scheduled Procedures Name Priority Associated Diagnoses Date/Ti [...] as of this encounter Visit Diagnoses Diagnosis Anaplastic thyroid carcinoma (HCC)- Primary Malignant neoplasm of thyroid gland documented in this encounter Advance Directives Documents on File Type Date Recorded Patient Information Security Specialist Expl anation BRET 04/10/2024 signed on 04/09 POL Care Teams Legal Aide Relationship Specialty Start Date End Date Mariela Molina DO [address] [place] [address] PCP - General Family Medicine 02/20/24 documented as of this encounter
--- OUTSIDE RECORDS SUMMARY | 2024-04-18 05:22 | External Medical Summary | Summary of Care ---
Author Name Unknown Organization [facility] Address [address] [place] [address] Phone [phone] Care Team Providers Care Machine Castings Plasterer Name Role Phone Mariela Molina DO Primary Care Provider [phone] Reason for Visit * Reason Onset Date Comments Appointment 04/09/2024 Appt Monday 04/09 Encounter Details Date Type Department Care Team (Late st Contact Info) Description 04/09/2024 Telephone Family Practice 65 [facility] [address] [place] [address] Mariela Molina DO [address] [place] [address] Appointment (Appt Monday 04/09 ) Allergies Active [...] hours as needed. 4 Active Magic Mouthwash (Lidocaine-[place] dryl-Nystatin) oral solution Swish and spit 15 mL in the morning and 15 mL before bedtime. 200 mL 1 4 Active Ergocalciferol 1.25 MG (17971 UT) Oral Capsule (Vitamin D2(Drisdol))Ind ications:Anapla stic [...] mRNA, LNP-s, No Pre serve, 2-Dose Series ([employer]) 04/25/2021,10/12/2020,09/21/2020 COVID-19, MRNA-LNP, 23-24, P F, 50 [...] Please call and schedule tele video visit. Thank you * Telephone Encounter - DownsIvetteARMANDO - 04/10/2024 1:50 PM EDT Called, not accepting calls. Will continue to try to call. Thank you * Telephone Encounter - Himanshu Ivette KebedeARMANDO - 04/09/2024 5:02 PM EDT Called and [...] 9:00 AM EDT Scheduled Telephone Palliative Medicine, [address] 5[address] Floor [place] [address] [place], Nurse Palliative Medicine [address] [place] [address] Scheduled Procedures Name Priority Associated Diagnoses Date/Ti [...] Documents on File Type Date Recorded Patient Wash Operator Expl anation POLST 04/10/2024 signed on 04/09 POLST Care Teams Machine Castings Plasterer Relationship Specialty Start Date End Date Mariela Molina DO [address] [place] [address] PCP - General Family Medicine 02/20/24 documented as of this encounter
--- OUTSIDE RECORDS SUMMARY | 2024-04-18 05:22 | External Medical Summary | Summary of Care ---
Author Name Unknown Organization [facility] Address [address] [place] [address] Phone [phone] Care Team Providers Care Filling Station Attendant Name Role Phone Mariela Molina DO Primary Care Provider [phone] Reason for Visit * Reason Onset Date Comments Palliative Care Follow-up 04/09/2024 Encounter Details Date Type Department Care Team (Late st Contact Info) Description 04/09/2024 Telephone Palliative Medicine, [facility] [address] [facility] 5th [place] [address] Britt Mascorro MD [address] [place] [address] Palliative Care Follow-up Allergies Active Allergy Reactions [...] mL 1 11/09/2023 Active Ergocalciferol 1.25 MG (89976 UT) Oral Capsule (Vitamin D2(Drisdol))Indic ations:Anaplastic thyroid [...] mRNA, LNP-s, No Pre serve, 2-Dose Series ([employer]) 04/25/2021,10/12/2020,09/21/2020 COVID-19, MRNA-LNP, 23-24, P F, 50 [...] Telephone Encounter - Shanelle Isaac LPN - 04/09/2024 1:56 PM EDT Hospice order, notes, demographics, and insurance info faxed to [facility] Family Hospice Will f/u in 1 week documented in this encounter Plan of Treatment Upcoming Encounters Date Type Department Care Team (Late st Contact Info) Description 04/11/2024 3:00 PM EDT Office Visit Family Practice [address], [place] [address] [place] [address] Mariela Molina DO 293 [place] [address] 04/15/2024 9:00 AM EDT Scheduled Telephone Palliative Medicine, [facility] [address] [facility] 5th [address] [place] [phone] [place], Nurse Palliative Medicine [facility] 5th [address] [place], [place] [phone] Scheduled Procedures Name Priority Associated Diagnoses Date/Ti [...] filedocumented as of this encounter Care Teams Filling Station Attendant Relationship Specialty Start Date End Date Mariela Molina DO [address] [place] [address] PCP - General Family Medicine 02/20/24 documented as of this encounter
--- OUTSIDE RECORDS SUMMARY | 2024-04-18 05:22 | External Medical Summary | Summary of Care ---
Author Name Unknown Organization [facility] Address [address] [place] [address] Phone [phone] Care Team Providers Care Director Learning Name Role Phone Mariela Molina DO Primary Care Provider Reason for Visit * Reason Onset Date Comments Appointment 04/09/2024 Appt Monday 04/09 Encounter Details Date Type Department Care Team (Late st Contact Info) Description 04/09/2024 Telephone Family Practice 65 [facility] [address] [place] [address] Mariela Molina DO [address] [place] [address] Appointment (Appt Monday 04/09 ) Allergies Active Allergy Reactions Criticality Noted Date Comments Doxycycline Diarrhea,Nausea/vomiting 03/22/2021 Penicillins Nausea/vomiting 09/20/2018 documented as of this encounter (statuses as of 04/12/2024) Medications Medication Sig Dispensed Refills Start Date [...] hours as needed. 4 Active Magic Mouthwash (Lidocaine-[place] dryl-Nystatin) oral solution Swish and spit 15 mL in the morning and 15 mL before bedtime. 200 mL 1 4 Active Ergocalciferol 1.25 MG (07219 UT) Oral Capsule (Vitamin D2(Drisdol))Ind ications:Anapla stic [...] as of this encounter (statuses as of 04/12/2024) Active Problems Problem Noted Date Diagnosed Date [...] as of this encounter (statuses as of 04/12/2024) Resolved Problems Problem Noted Date Diagnosed Date Resolved Date Acute deep vein thrombosis ( DVT) of lower extremity 10/10/2022 09/25/2023 documented as of this encounter (statuses as of 04/12/2024) Immunizations Name Administration Dates Next Due COVID-19 mRNA, LNP-s, No Pre serve, 2-Dose Series ([employer]) 04/25/2021,10/12/2020,09/21/2020 COVID-19, MRNA-LNP, 23-24, P F, 50 [...] video visit. Was going to go to [facility], dr nichole Cline spoke to [facility] and was decided not to go forward to [facility]. Is working with Palliative care discussed hospice care with DR Fernandez. Will be trying radiation possibly [place] she needed to go into hospice care [...] 9:00 AM EDT Scheduled Telephone Palliative Medicine, [facility] [address] [facility] 5th Floor [place] [address] [place], Nurse Palliative Medicine [facility] 5th [address] [facility] [place] [address] 04/16/2024 11:20 AM EDT Telemedicine Family Practice [address], [place] [address] [place] [address] Mariela Molina [address] [place] [address] Scheduled Procedures Name Priority Associated Diagnoses Date/Ti [...] Documents on File Type Date Recorded Patient Refining Equipment Operator Expl anation BRET 04/10/2024 signed on 04/09 POL Care Teams Director Learning Relationship Specialty Start Date End Date Mariela Molina DO [address] [place] [address] PCP - General Family Medicine 02/20/24 documented as of this encounter
--- OUTSIDE RECORDS SUMMARY | 2024-04-18 05:22 | External Medical Summary | Summary of Care ---
Author Name Unknown Organization [facility] Address [address] [place] [address] Phone [phone] Care Team Providers Care Payable Processor Name Role Phone Mariela Molina DO Primary Care Provider [phone] Reason for Visit * Reason Onset Date Comments Test Results Lab 04/01/2024 Encounter Details Date Type Department Care Team (Late st Contact Info) Description 04/01/2024 Telephone Hematology/Oncology [facility] [place] [place] [address] [place] [address] Romaine Rolon MD [address] [place] [address] Test Results Lab Allergies Active Allergy Reactions Criticality Noted Date Comments Doxycycline Diarrhea,Nausea/vomiting 03/22/2021 Penicillins Nausea/vomiting 09/20/2018 documented as of this encounter (statuses as of 04/02/2024) Medications Medication Sig Dispensed Refills Start Date [...] mL 1 11/09/2023 Active Ergocalciferol 1.25 MG (93923 UT) Oral Capsule (Vitamin D2(Drisdol))Indic ations:Anaplastic thyroid [...] as of this encounter (statuses as of 04/02/2024) Active Problems Problem Noted Date Diagnosed Date [...] as of this encounter (statuses as of 04/02/2024) Resolved Problems Problem Noted Date Diagnosed Date Resolved Date Acute deep vein thrombosis ( DVT) of lower extremity 10/10/2022 09/25/2023 documented as of this encounter (statuses as of 04/02/2024) Immunizations Name Administration Dates Next Due COVID-19 mRNA, LNP-s, No Pre serve, 2-Dose Series ([employer]) 04/25/2021,10/12/2020,09/21/2020 COVID-19, MRNA-LNP, 23-24, P F, 50 [...] keeping in touch with Dr. Mascorro and Shanelle about my palliative care and their pain [...] 9:45 AM EDT Pharmacy Pharmacy Hematology Oncology [facility] [address] [place] [address] [facility] Hem/Onc [address] [facility] [place] [address] 04/11/2024 3:00 PM EDT Office Visit Family Practice [address], [place] [address] [place] [address] Mariela Molina DO 293 [facility] [address] Scheduled Procedures Name Priority Associated Diagnoses Date/Ti [...] filedocumented as of this encounter Care Teams Payable Processor Relationship Specialty Start Date End Date Mariela Molina DO [address] [place] [address] PCP - General Family Medicine 02/20/24 documented as of this encounter
--- OUTSIDE RECORDS SUMMARY | 2024-04-18 05:22 | External Medical Summary | Summary of Care ---
Author Name Unknown Organization [facility] Address [address] [place] [address] Phone [phone] Care Team Providers Care Loan Documentation Specialist Name Role Phone Mariela Molina DO Primary Care Provider Reason for Visit * Reason Onset Date Comments Appointment 04/09/2024 Appt Monday 04/09 Encounter Details Date Type Department Care Team (Late st Contact Info) Description 04/09/2024 Telephone Family Practice 65 [facility] [address] [place] [address] Mariela Molina DO [address] [place] [address] Appointment (Appt Monday 04/09 ) Allergies Active [...] hours as needed. 4 Active Magic Mouthwash (Lidocaine-[place] dryl-Nystatin) oral solution Swish and spit 15 mL in the morning and 15 mL before bedtime. 200 mL 1 4 Active Ergocalciferol 1.25 MG (25721 UT) Oral Capsule (Vitamin D2(Drisdol))Ind ications:Anapla stic [...] mRNA, LNP-s, No Pre serve, 2-Dose Series ([employer]) 04/25/2021,10/12/2020,09/21/2020 COVID-19, MRNA-LNP, 23-24, P F, [...] encounter Miscellaneous Notes * Telephone Encounter - Grace Murray OSA [...] video visit. Was going to go to [facility], dr nichole Cline spoke to [facility] and was decided not to go forward to [facility]. Is working with Palliative care discussed hospice care with DR Fernandez. Will be trying radiation possibly [place] she needed to go into hospice care [...] 9:00 AM EDT Scheduled Telephone Palliative Medicine, [facility] [address] [facility] 5th [place] [address] [place], Nurse Palliative Medicine [facility] 5th [address] [place] [address] 04/16/2024 11:20 AM EDT [facility] [address] [place] [address] Mariela Molina DO [address] [place] [address] Scheduled Procedures Name Priority Associated Diagnoses Date/Ti [...] Documents on File Type Date Recorded Patient Sales Support Associate Expl anation BRET 04/10/2024 signed on 04/09 POL Care Teams Loan Documentation Specialist Relationship Specialty Start Date End Date Mariela Molina DO [address] [place] [address] PCP - General Family Medicine 02/20/24 documented as of this encounter
--- OUTSIDE RECORDS SUMMARY | 2024-04-18 05:22 | External Medical Summary | Summary of Care ---
Author Name Unknown Organization [facility] Address [address] [place] [address] Phone [phone] Care Team Providers Care Journalism Intern Name Role Phone Mariela Molina DO Primary Care Provider Reason for Visit * Reason Onset Date Comments Appointment 04/09/2024 Appt Monday 04/09 Encounter Details Date Type Department Care Team (Late st Contact Info) Description 04/09/2024 Telephone Family Practice 65 [facility] [address] [place] [address] Mariela Molina DO [address] [place] [address] Appointment (Appt Monday 04/09 ) Allergies Active [...] mL 1 11/09/2023 Active Ergocalciferol 1.25 MG (01391 UT) Oral Capsule (Vitamin D2(Drisdol))Indic ations:Anaplastic thyroid [...] mRNA, LNP-s, No Pre serve, 2-Dose Series ([employer]) 04/25/2021,10/12/2020,09/21/2020 COVID-19, MRNA-LNP, 23-24, P F, 50 [...] EDT Office Visit Family Practice [address] [place] [address] [place] [address] Mariela Molina DO [address] [place] [address] 04/15/2024 9:00 AM EDT Scheduled Telephone Palliative Medicine, [facility] 400 [facility] 5th Floor [place] [address] [place], Nurse Palliative Medicine [facility] 5th [address] [place] [address] Scheduled Procedures Name Priority Associated Diagnoses Date/Ti [...] filedocumented as of this encounter Care Teams Journalism Intern Relationship Specialty Start Date End Date Mariela Molina DO [address] [facility] [place] [address] PCP - General Family Medicine 02/20/24 documented as of this encounter
--- OUTSIDE RECORDS SUMMARY | 2024-04-18 05:23 | External Medical Summary | Summary of Care ---
Author Name Unknown Organization [facility] Address [address] [place] [address] Phone [phone] Care Team Providers Care Veterinary Laboratory Technician Name Role Phone Mariela Molina DO Primary Care Provider [phone] Encounter Details Date Type Department Care Team (Late st Contact Info) Description 03/26/2024 2:00 PM EDT Telemedicine Palliative Medicine [facility] [address] [place] [address] Britt Mascorro MD 400 [place] [address] Cancer related pain* Allergies Active Allergy Reactions Criticality Noted Date Comments Doxycycline Diarrhea,Nausea/vomiting 03/22/2021 Penicillins Nausea/vomiting 09/20/2018 documented as of this encounter (statuses as of 03/26/2024) Medications Medication Sig Dispensed Refills Start Date [...] mL 1 11/09/2023 Active Ergocalciferol 1.25 MG (18541 UT) Oral Capsule (Vitamin D2(Drisdol))Rubina cations:Anaplast ic [...] 03/21/2024 Active Acetaminophen 500 MG Oral Tablet (Tylenol)Indicat [...] Tablet before bedtime. 28 Tablet 03/26/2024 Active Morphine Sulfate ER 15 MG Oral Tablet Extended Release (Ms Contin)Indicatio ns:Cancer related pain Take 1 Tablet by mouth in the morning and 1 Tablet before bedtime. 28 Tablet 03/12/2024 Discontinue d(Refill) documented as of this encounter (statuses as of 03/26/2024) Active Problems Problem Noted Date Diagnosed Date [...] as of this encounter (statuses as of 03/26/2024) Resolved Problems Problem Noted Date Diagnosed Date Resolved Date Acute deep vein thrombosis ( DVT) of lower extremity 10/10/2022 09/25/2023 documented as of this encounter (statuses as of 03/26/2024) Immunizations Name Administration Dates Next Due COVID-19 mRNA, LNP-s, No Pre serve, 2-Dose Series (Pfizer) 04/25/2021,10/12/2020,09/21/2020 COVID-19, MRNA-LNP, 23-24, P F, 50 MCG/0.5 mL, 12 YRS AND ABOVE, IM (MODERNA-Spikevax) 05/08/2023 COVID-19, mRNA, LNP-s, PF, B ooster, 100mcg/0.5mg (Moderna) 12/19/2021 Covid-19, Mrna, Lnp-s, Pf, B ivalent, 50 Mcg, IM, 12 yrs and above (Moderna) 04/10/2022 Pneumococcal Conjugate Vacc, 13 Valent (Prevnar) 03/30/2020 Pneumococcal Polysaccharide PPV23 (Pneumovax) 06/30/2022 Seasonal Influenza, Quadriva lent Hd, 65+ Yrs 06/16/2023 Seasonal Influenza, Recombin ant, RIV4, PF, (Flublock) 04/30/2020 Seasonal Influenza, Split, I IV3, With Preserve, Inj 06/11/2019 Seasonal Influenza, Trivalen t, Adjuvanted, 65+ yrs 04/10/2022 Seasonal Influenza, Trivalen t, High Dose, No Preserve, IM 06/11/2019 TDAP, Age 7 and older, IM (Adacel) [...] as of this encounter Progress Notes * Britt Mascorro MD - 03/26/2024 2:00 PM EDT Palliative Medicine Outpatient Progress Note IN HOME TELEMEDICINE VISIT [facility], [facility] [address] [place] [address] Name: Ivette Castillo Date: 03/26/2024 I was in a hospital or clinic location. After connecting through televValencello, patient was verified with two unique identifiers. Patient (or authorized legal veterans service representative) was then informed that this was a Telemedicine visit and being conducted confidentially over secure lines. Methods to assure confidentiality were taken. Patient acknowledged consent and understanding of privacy and security of the Telemedicine visit. The patient agreed to participate. 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 At last visit, we continued MS Contin 15mg BID and changed Percocet to Oxycodone an added Tylenol. She is still having severe pain. Was taking Tylenol 3 hours after oxycodone, not sure she felt any difference Palliative symptoms: Pain: Located at: R arm / neck Currently taking: as above Quality:deep Severity: severe Duration: constant in certain positions Context: known tumors Modifying factors: certain positions and slings can help Associated sx: no Nausea/Vomiting: no Appetite: no Constipation: no Confusion: no Examination: No vital signs as this is a telemedicine encounter Constitutional: no acute distress, chronically ill HENT: normocephalic, atraumatic. Eyes: anicteric, sclera and conjunctiva normal. Neck: no stridor Chest: normal respiratory effort Abdominal: nondistended Extremities: no edema Decision-making Capacity: Does Patient have Decisional Capacity? y Does Patient have a Healthcare Agent? Y, Advanced Care Planning (see ACP Tab): Deferred ASSESSMENT/PLAN: Ivette Castillo is a 73 year old female seen in follow-up for goals of care and pain and symptom management. 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 They are able to do video visits. Next visit with me. Britt Mascorro MD [facility] Palliative Medicine [phone] documented in this encounter Plan of Treatment Upcoming Encounters Date Type Department Care Team (Late st Contact Info) Description 03/27/2024 9:30 AM EDT Scheduled Telephone Palliative Medicine, [facility] 400 [facility] 5th [place] [address] [place], Nurse Palliative Medicine [address] [address] 03/28/2024 9:45 AM EDT Imaging Radiology [facility] [address] [facility] [place] [address] 04/08/2024 9:45 AM EDT Pharmacy Pharmacy Hematology Oncology [facility] [address] [place] [address] [facility] Hem[facility]Onc [address] [place] [address] 04/11/2024 3:00 PM EDT Office Visit Family Practice [address], [place] [address] [place] [address] Mariela Molina DO [address] [place] [address] Scheduled Procedures Name Priority Associated Diagnoses Date/Ti me COLONOSCOPY FLEXIBLE PROXIMAL DIAGNOSTIC Recall History of colon polyps Health Maintenance Due Date Last Done Comments Mammogram 1990 Cologuard 1995 Fecal Occult Blood Test 1995 Sigmoidoscopy 1995 COVID-19 Vaccine ( season) 2023 05/08/2023, 04/10/2022, 12/19/2021, Additional history exists Colonoscopy 09/24/2023 09/24/2018, 08/31, 01/10/2013, Additional history exists Colorectal Cancer Screening 09/24/2023 Influenza Vaccine (FLU shot) (#1) 2024 06/16/2023, 04/10/2022, 04/30/2020, Additional history exists Adult Wellness Visit 06/27/2024 06/27/2023, 06/30/20 22 Depression Screening 08/24/2024 08/24/2023 TSH 02/18/2025 02/19/2024, 05/0 07/2023, 10/29/2023, Additional history exists DXA Scan 04/25/2026 04/25/2019, [...] (chronic) documented in this encounter Care Teams Veterinary Laboratory Technician Relationship Specialty Start Date End Date Mariela Molina DO [address] [facility] [place] [address] PCP - General Family Medicine 02/20/24 documented as of this encounter
--- OUTSIDE RECORDS SUMMARY | 2024-04-18 05:23 | External Medical Summary | Summary of Care ---
Author Name Unknown Organization [facility] Address [address] [place] [address] Phone [phone] Care Team Providers Care Welding Machine Operator Helper Arc Name Role Phone Mariela Molina DO Primary Care Provider [phone] Reason for Visit * Reason Onset Date Comments Advice 03/26/2024 Encounter Details Date Type Department Care Team (Late st Contact Info) Description 03/26/2024 Telephone Palliative Medicine [facility] [address] [place] [address] Services, Scheduling [address] [place] [address] Advice Allergies Active Allergy Reactions Criticality Noted Date [...] mL 1 11/09/2023 Active Ergocalciferol 1.25 MG (52526 UT) Oral Capsule (Vitamin D2(Drisdol))Indic ations:Anaplastic thyroid [...] mouth daily. 30 Tablet 3 03/04/2024 Active Morphine Sulfate ER 15 MG Oral Tablet Extended Release (Ms Contin)Indication s:Cancer related pain Take 1 Tablet by mouth in the morning and 1 Tablet before bedtime. 28 Tablet 03/12/2024 Active oxyCODONE HCl 10 MG Oral Tablet (Roxicodone)Indic ations:Cancer related pain Take 1 Tablet by mouth every 4 hours as needed for Pain, Severe. 60 Tablet 03/21/2024 Active Acetaminophen 500 MG Oral Tablet (Tylenol)Indicati ons:Cancer related pain Take 2 Tablets by mouth in the morning and 2 Tablets at noon and 2 Tablets in the evening. Currently not taking. 03/21/2024 Active documented as of this encounter (statuses [...] mRNA, LNP-s, No Pre serve, 2-Dose Series ([employer]) 04/25/2021,10/12/2020,09/21/2020 COVID-19, MRNA-LNP, 23-24, P F, 50 [...] Telephone Encounter - Shanelle Isaac LPN - 03/26/2024 12:57 PM EDT Call back to Ivette Advised to keep video visit today at 2pm She states she's having a lot of increased pain * Telephone Encounter - Tai Mullins OSA - 03/26/2024 12:53 PM EDT Patient returned phone call from Shanelle Isaac. She confirmed video visit but also wanted to discuss pain medication. Please call her back . documented in this encounter Plan of Treatment Upcoming Encounters Date Type Department Care Team (Late st Contact Info) Description 03/26/2024 2:00 PM EDT Telemedicine Palliative Medicine [facility] [address] [place] [address] Britt Mascorro MD [address] [place] [address] 03/28/2024 9:45 AM EDT Imaging Radiology [facility] 1st [facility] [address] [facility] [place] [address] 04/08/2024 9:45 AM EDT Pharmacy Pharmacy Hematology Oncology [facility] [address] [place] [address] [facility] [address] [place] [address] 04/11/2024 3:00 PM EDT Office Visit Family Practice [address], [place] [address] [place] [address] Mariela Molina DO [address] [place] [address] Scheduled Procedures Name Priority Associated Diagnoses Date/Ti [...] filedocumented as of this encounter Care Teams Welding Machine Operator Helper Arc Relationship Specialty Start Date End Date Mariela Molina DO [address] [place] [address] PCP - General Family Medicine 02/20/24 documented as of this encounter
--- OUTSIDE RECORDS SUMMARY | 2024-04-18 05:23 | External Medical Summary ---
Author Name Unknown Address Unknown Organization [id number]:[facility] [place] [facility] [address] [place] [address] Laboratory Report Ordering Provider Test Date Status GARRETT OLIVARES 03/27/2024 15:06:52 Final Observation Date Value Abnormality Reference (Units ) Status TSH 03/27/2024 15:06:52 31.90 Above high normal 0. 27-4.20 (uIU/mL) Final Performing Location [facility] - [address] [place] [address]
--- OUTSIDE RECORDS SUMMARY | 2024-04-18 05:23 | External Medical Summary ---
Author Name Unknown Address Unknown Organization K09:[facility] [place] [address] Laboratory Report Ordering Provider Test Date Status GARRETT OLIVARES 03/27/2024 15:06:52 Final Observation Date Value Abnormality Reference (Units ) Status WBC, Total 03/27/2024 15:06:52 4.69 4.00-10.8 0 (K/uL) Final RBC 03/27/2024 15:06:52 3.74 3.85-5.15 (M/uL) Final Hemoglobin 03/27/2024 15:06:52 10.6 Below low normal 12 .0-15.3 (g/dL) Final HCT 03/27/2024 15:06:52 34.7 Below low normal 36. 0-45.2 (%) Final MCV 03/27/2024 15:06:52 92.8 81.5-97.5 (fL) Final MCH 03/27/2024 15:06:52 28.3 27.0-34.0 (pg) Final MCHC 03/27/2024 15:06:52 30.5 32.0-36.0 (g/dL) Final RDW 03/27/2024 15:06:52 18.7 11.5-15.5 (%) Final Platelets 03/27/2024 15:06:52 212 140-400 (K /uL) Final MPV 03/27/2024 15:06:52 9.6 6.6-11.1 ( fL) Final Performing Location [facility] [place] [address]
--- OUTSIDE RECORDS SUMMARY | 2024-04-18 05:23 | External Medical Summary | Summary of Care ---
Author Name Unknown Organization [facility] Address [address] [place] [address] Phone [phone] Care Team Providers Care Wellhead Pumper Name Role Phone Mariela Molina DO Primary Care Provider [phone] Reason for Visit * Reason Onset Date Comments Test Results Lab 04/01/2024 Encounter Details Date Type Department Care Team (Late st Contact Info) Description 04/01/2024 Telephone Hematology/Oncology [facility] [place] [address] [place] [address] Romaine Rolon MD [address] [place] [address] Test Results Lab Allergies Active Allergy Reactions [...] mL 1 11/09/2023 Active Ergocalciferol 1.25 MG (79089 UT) Oral Capsule (Vitamin D2(Drisdol))Indic ations:Anaplastic thyroid [...] mRNA, LNP-s, No Pre serve, 2-Dose Series ([employer]) 04/25/2021,10/12/2020,09/21/2020 COVID-19, MRNA-LNP, 23-24, P F, 50 [...] 9:[address] Rolon/ Dr Mascorro: ZOEI on MyG "Celio Leija/Dr. Rolon, Thanks. Appreciate [...] 9:45 AM EDT Pharmacy Pharmacy Hematology Oncology [facility] [place] [address] [place] [address] [facility] Hem/Onc [address] [place] [address] 04/11/2024 3:00 PM EDT Office Visit [facility] 65 [facility], [address] [address] Mariela Molina, DO [address] [place] [address] Scheduled Procedures Name Priority Associated Diagnoses Date/Ti [...] filedocumented as of this encounter Care Teams Wellhead Pumper Relationship Specialty Start Date End Date Mariela Molina DO [address] [place] [address] PCP - General Family Medicine 02/20/24 documented as of this encounter
--- OUTSIDE RECORDS SUMMARY | 2024-04-18 05:23 | External Medical Summary | Summary of Care ---
Author Name Unknown Organization [facility] Address [address] [place] [address] Phone [phone] Care Team Providers Care Multiple Launch Rocket System Crewmember Name Role Phone Mariela Molina DO Primary Care Provider [phone] Reason for Visit * Reason Onset Date Comments Palliative Care Follow-up 03/27/2024 Encounter Details Date Type Department Care Team (Late st Contact Info) Description 03/27/2024 9:30 AM EDT Scheduled Telephone Palliative Medicine, [address] 5th [place] [address] [place], Nurse Palliative Medicine [address] [id number] Arrived Allergies Active Allergy Reactions Criticality Noted Date Comments Doxycycline Diarrhea,Nausea/vomiting 03/22/2021 Penicillins Nausea/vomiting 09/20/2018 documented as of this encounter (statuses as of 03/27/2024) Medications Medication Sig Dispensed Refills Start Date [...] mL 1 11/09/2023 Active Ergocalciferol 1.25 MG (69162 UT) Oral Capsule (Vitamin D2(Drisdol))Indic ations:Anaplastic thyroid [...] as of this encounter (statuses as of 03/27/2024) Active Problems Problem Noted Date Diagnosed Date [...] as of this encounter (statuses as of 03/27/2024) Resolved Problems Problem Noted Date Diagnosed Date Resolved Date Acute deep vein thrombosis ( DVT) of lower extremity 10/10/2022 09/25/2023 documented as of this encounter (statuses as of 03/27/2024) Immunizations Name Administration Dates Next Due COVID-19 mRNA, LNP-s, No Pre serve, 2-Dose Series ([employer]) 04/25/2021,10/12/2020,09/21/2020 COVID-19, MRNA-LNP, 23-24, P F, 50 [...] No 08/24/2023 Does the household have a [facility] hospitall[facility] source of income? (Household - for ages [...] Telephone Encounter - Shanelle Isaac LPN - 03/27/2024 12:39 PM EDT Seen yesterday via video visit: - Increase MS Contin from 15mg to 30mg BID - Continue Oxycodone 10mg q4h PRN with Tylenol at the same time, max 1000mg TID - Will have nursing check in next week, if pain seems OK, could try stopping MS Gis[place] as she has alot of pills to take each day Call today to check in on pain No answer Left message requesting return call Will also send MyG documented in this encounter Plan of Treatment Upcoming Encounters Date Type Department Care Team (Late st Contact Info) Description 03/28/2024 9:45 AM EDT Imaging Radiology [facility] 1st [facility] [place] [address] [place] [address] 04/08/2024 9:45 AM EDT Pharmacy Pharmacy Hematology Oncology [facility] [address] [place] [address] [facility] Hem[facility]Onc [address] [place] [address] 04/11/2024 3:00 PM EDT Office Visit Family Practice [address] [place] [address] [place] [address] Mariela Molina DO [address] [place] [address] Scheduled Procedures Name Priority Associated Diagnoses Date/Ti [...] filedocumented as of this encounter Care Teams Multiple Launch Rocket System Crewmember Relationship Specialty Start Date End Date Mariela Molina DO [address] [facility] [place] [address] PCP - General Family Medicine 02/20/24 documented as of this encounter
--- OUTSIDE RECORDS SUMMARY | 2024-04-18 05:23 | External Medical Summary ---
Author Name Unknown Address Unknown Organization K09:[facility]AT[facility] [place] [address] [place] [address] Laboratory Report Ordering Provider Test Date Status GARRETT OLIVARES 03/27/2024 15:06:52 Final Observation Date Value Abnormality Reference (Units ) Status BUN 03/27/2024 15:06:52 21 Above high normal 6-20 (mg/dL) Final Creatinine 03/27/2024 15:06:52 1.0 0.5-1.0 (mg/dL) Final Glomerular filtration rate/1.73 sq M.predicted [Volume Rate/Area] in Serum, Plasma or Blood by Creatinine-based formula (CKD-EPI) 03/27/2024 15:06:52 62 >=60 (mL/min) Final eGFR is calculated based on the CKD-EPI 2020 equation. Sodium 03/27/2024 15:06:52 140 135-146 (m mol/L) Final Potassium 03/27/2024 15:06:52 4.0 3.5-5.1 (m mol/L) Final Cl 03/27/2024 15:06:52 99 98-107 (mm ol/L) Final CO2 03/27/2024 15:06:52 30 22-32 (mmo l/L) Final Anion gap 03/27/2024 15:06:52 11 7-15 (mmol /L) Final Glucose 03/27/2024 15:06:52 168 Above high normal 70 -120 (mg/dL) Final Albumin 03/27/2024 15:06:52 3.4 Below low normal 3.8 -5.0 (g/dL) Final AST (Aspartate aminotransferase) 03/27/2024 15:06:52 23 10-35 (U/L) Fin al Alk Phos 03/27/2024 15:06:52 145 Above high normal 35 -130 (U/L) Final Bilirubin, Total 03/27/2024 15:06:52 0.4 <=1 .2 (mg/dL) Final Calcium 03/27/2024 15:06:52 8.9 8.4-10.2 ( mg/dL) Final Protein 03/27/2024 15:06:52 6.7 6.0-8.3 (g /dL) Final ALT (Alanine aminotransferase) 03/27/2024 15:06:52 6 Below low normal 10-35 (U/L) Final Performing Location [facility] [place] [address] [place] [address]
--- OUTSIDE RECORDS SUMMARY | 2024-04-18 05:23 | External Medical Summary | Summary of Care ---
Author Name Unknown Organization [facility] Address [address] [place] [address] Phone [phone] Care Team Providers Care Lock Expert Name Role Phone Mariela Molina DO Primary Care Provider Reason for Visit * Reason Onset Date Comments Test Results Lab 04/01/2024 Encounter Details Date Type Department Care Team (Late st Contact Info) Description 04/01/2024 Telephone Hematology/Oncology [facility] [place] [address] [place] [address] Romaine Rolon MD [address] [place] [address] Test Results Lab Allergies Active Allergy Reactions Criticality Noted Date Comments Doxycycline Diarrhea,Nausea/vomiting 03/22/2021 Penicillins Nausea/vomiting 09/20/2018 documented as of this encounter (statuses as of 04/01/2024) Medications Medication Sig Dispensed Refills Start Date [...] mL 1 11/09/2023 Active Ergocalciferol 1.25 MG (73835 UT) Oral Capsule (Vitamin D2(Drisdol))Indic ations:Anaplastic thyroid [...] as of this encounter (statuses as of 04/01/2024) Active Problems Problem Noted Date Diagnosed Date [...] as of this encounter (statuses as of 04/01/2024) Resolved Problems Problem Noted Date Diagnosed Date Resolved Date Acute deep vein thrombosis ( DVT) of lower extremity 10/10/2022 09/25/2023 documented as of this encounter (statuses as of 04/01/2024) Immunizations Name Administration Dates Next Due COVID-19 mRNA, LNP-s, No Pre serve, 2-Dose Series ([employer]) 04/25/2021,10/12/2020,09/21/2020 COVID-19, MRNA-LNP, 23-24, P F, 50 [...] encounter Miscellaneous Notes * Telephone Encounter - Liss Quintanilla LPN [...] 9:45 AM EDT Pharmacy Pharmacy Hematology Oncology [address] [address] [facility] [place] Hem/Onc [address] [place] [address] 04/11/2024 3:00 PM EDT Office Visit Family Practice [address] [place] [address] [place] [address] Mariela Molina DO [address] [place] [address] Scheduled Procedures Name Priority Associated Diagnoses Date/Ti [...] Depression Screening 08/24/2024 08/24/2023 TSH 03/27/2025 03/27/2024, 0709/2023, 11/28/2023, Additional history exists DXA Scan 04/25/2026 [...] filedocumented as of this encounter Care Teams Lock Expert Relationship Specialty Start Date End Date Mariela Molina DO [address] [place] [address] PCP - General Family Medicine 02/20/24 documented as of this encounter
--- OUTSIDE RECORDS SUMMARY | 2024-04-18 05:23 | External Medical Summary ---
Author Name Unknown Address Unknown Organization K01:[facility] - [address] [place] [address] Laboratory Report Ordering Provider Test Date Status GARRETT OLIVARES 03/27/2024 15:06:52 Final Observation Date Value Abnormality Reference (Units ) Status T4, Free 03/27/2024 15:06:52 1.3 0.9-1.7 (n g/dL) Final Performing Location [facility] - [address] [place] [address]
--- OUTSIDE RECORDS SUMMARY | 2024-04-18 05:23 | External Medical Summary | Summary of Care ---
Author Name Unknown Organization [facility] Address [address] [place] [address] Phone [phone] Care Team Providers Care Client Service Associate Name Role Phone Mariela Molina DO Primary Care Provider [phone] Reason for Visit * Reason Onset Date Comments Test Results Lab 04/01/2024 Encounter Details Date Type Department Care Team (Late st Contact Info) Description 04/01/2024 Telephone Hematology/Oncology Cathy Queenie [place] [address] [place] [address] Romaine Rolon MD [address] [place] [address] Test Results Lab Allergies Active Allergy Reactions [...] mL 1 11/09/2023 Active Ergocalciferol 1.25 MG (88771 UT) Oral Capsule (Vitamin D2(Drisdol))Indic ations:Anaplastic thyroid [...] mRNA, LNP-s, No Pre serve, 2-Dose Series ([employer]) 04/25/2021,10/12/2020,09/21/2020 COVID-19, MRNA-LNP, 23-24, P F, 50 [...] 9:45 AM EDT Pharmacy Pharmacy Hematology Oncology [facility] [address] [place] [address] [facility]Onc [address] [facility] [place] [address] 04/11/2024 3:00 PM EDT Office Visit Family Practice [address], [place] [address] [place] [phone] Mariela Molina DO 293 [place] [address] Scheduled Procedures Name Priority Associated Diagnoses Date/Ti [...] filedocumented as of this encounter Care Teams Client Service Associate Relationship Specialty Start Date End Date Mariela Molina DO [address] [place] [address] PCP - General Family Medicine 02/20/24 documented as of this encounter
--- OUTSIDE RECORDS SUMMARY | 2024-04-18 05:23 | External Medical Summary | Summary of Care ---
Author Name Unknown Organization [facility] Address [address] [place] [address] Phone [phone] Care Team Providers Care Remote Medical Coder Name Role Phone Mariela Molina DO Primary Care Provider [phone] Reason for Visit * Reason Onset Date Comments Palliative Care Follow-up 03/25/2024 Encounter Details Date Type Department Care Team (Late st Contact Info) Description 03/25/2024 10:15 AM EDT Scheduled Telephone Palliative Medicine, [address] [place] [address] Pr, Nurse Palliative Medicine [address] [id number] Arrived Allergies Active Allergy Reactions Criticality Noted Date Comments Doxycycline Diarrhea,Nausea/vomiting 03/22/2021 Penicillins Nausea/vomiting 09/20/2018 documented as of this encounter (statuses as of 03/25/2024) Medications Medication Sig Dispensed Refills Start Date [...] mL 1 11/09/2023 Active Ergocalciferol 1.25 MG (85972 UT) Oral Capsule (Vitamin D2(Drisdol))Indic ations:Anaplastic thyroid [...] as of this encounter (statuses as of 03/25/2024) Active Problems Problem Noted Date Diagnosed Date [...] as of this encounter (statuses as of 03/25/2024) Resolved Problems Problem Noted Date Diagnosed Date Resolved Date Acute deep vein thrombosis ( DVT) of lower extremity 10/10/2022 09/25/2023 documented as of this encounter (statuses as of 03/25/2024) Immunizations Name Administration Dates Next Due COVID-19 mRNA, LNP-s, No Pre serve, 2-Dose Series ([employer]) 04/25/2021,10/12/2020,09/21/2020 COVID-19, MRNA-LNP, 23-24, P F, 50 [...] Telephone Encounter - Shanelle Isaac LPN - 03/25/2024 12:58 PM EDT Palliative f/u phone call Seen 03/12: ASSESSMENT/PLAN: Ivette Castillo is a 73 year old female seen in follow-up for goals of care and pain and symptom management. 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 Nurse call in 1 weeks. They are able to do video visits. Next visit with me. Video visit scheduled for tomorrow Confirmed with documented in this encounter Plan of Treatment Upcoming Encounters Date Type Department Care Team (Late st Contact Info) Description 03/26/2024 2:00 PM EDT Telemedicine Palliative Medicine [facility] [address] [place] [phone] [place] Mascorro MD [address] [place] [address] 03/28/2024 9:45 AM EDT Imaging Radiology [facility] 1st [facility] [address] [place] [address] 04/08/2024 9:45 AM EDT Pharmacy Pharmacy Hematology Oncology [facility] [address] [place] [address] [facility] Hem/Onc [address] [place] [address] 04/11/2024 3:00 PM EDT Office Visit Family Practice 65 [facility] [place] [address] [place] [address] Mariela Molina DO [address] [place] [address] Scheduled Procedures Name Priority Associated Diagnoses Date/Ti [...] filedocumented as of this encounter Care Teams Remote Medical Coder Relationship Specialty Start Date End Date Mariela Molina DO [address] [facility] [place] [address] PCP - General Family Medicine 02/20/24 documented as of this encounter
--- OUTSIDE RECORDS SUMMARY | 2024-04-18 05:23 | External Medical Summary | Summary of Care ---
Author Name Unknown Organization [facility] Address [address] [place] [address] Phone [phone] Care Team Providers Care Music Ministries Director Name Role Phone Mariela Molina DO Primary Care Provider [phone] Reason for Visit * Reason Onset Date Comments Other 03/25/2024 Encounter Details Date Type Department Care Team (Late st Contact Info) Description 03/25/2024 Telephone Access Center, [place] [address] [facility] *DO NOT REMOVE THIS DEPARTMENT* [place], [place] [id number] Services, Scheduling [address] [place] [address] Other Allergies Active Allergy Reactions Criticality Noted Date [...] mL 1 11/09/2023 Active Ergocalciferol 1.25 MG (84606 UT) Oral Capsule (Vitamin D2(Drisdol))Indic ations:Anaplastic thyroid [...] mRNA, LNP-s, No Pre serve, 2-Dose Series ([employer]) 04/25/2021,10/12/2020,09/21/2020 COVID-19, MRNA-LNP, 23-24, P F, 50 [...] Encounter - Shanelle Isaac LPN - 03/26/2024 7:34 AM EDT Called and spoke with yesterday (see tel enc) Confirmed video visit for today * Telephone Encounter - Nati Ott OSA - 03/25/2024 5:07 PM EDT Patient calling and asking to speak with Shanelle, She thought she was supposed to receive a phone call from her and she thinks she missed the call regarding the medication. If Shanelle can call before 2pm tomorrow 03/26. Please advise. documented in this encounter Plan of Treatment Upcoming Encounters Date Type Department Care Team (Late st Contact Info) Description 03/26/2024 2:00 PM EDT Telemedicine Palliative Medicine [facility] [address] [place] [phone] [place] Mascorro MD [address] [place], [place] [address] [address] 03/28/2024 9:45 AM EDT Imaging Radiology [facility] 1st [facility] [address] [place] [address] 04/08/2024 9:45 AM EDT Pharmacy Pharmacy Hematology Oncology [facility] [address] [place] [address] [facility], [facility] Hem/Onc [address] [place] [address] 04/11/2024 3:00 PM EDT Office Visit Family Practice [address], [place] [address] [place] [phone] Mariela Molina DO [address] [place] [address] Scheduled Procedures Name Priority Associated Diagnoses Date/Ti [...] filedocumented as of this encounter Care Teams Music Ministries Director Relationship Specialty Start Date End Date Mariela Molina DO [address] [place] [address] PCP - General Family Medicine 02/20/24 documented as of this encounter
--- OUTSIDE RECORDS SUMMARY | 2024-04-18 05:23 | External Medical Summary ---
Author Name Unknown Address Unknown Organization K[facility] [place] [address] Laboratory Report Ordering Provider Test Date Status GARRETT OLIVARES 03/27/2024 15:06:52 Final Observation Date Value Abnormality Reference (Units ) Status SYNC LEUKOCYTES IN BLOOD BY AUTOMATED COUNT 03/27/2024 15:06:52 4.69 4.00-10.80 (K/uL) Final Segs 03/27/2024 15:06:52 60.5 40.0-75.0 (%) Final Lymphs % 03/27/2024 15:06:52 27.1 18.0-42.0 (%) Final Monos 03/27/2024 15:06:52 10.9 1.0-11.0 (%) Final Eosinophils 03/27/2024 15:06:52 1.3 0.0-6.0 (%) Final Basos 03/27/2024 15:06:52 0.2 0.0-2.0 (%) Final Absolute Segs 03/27/2024 15:06:52 2.84 1.80-7.70 (K/uL) Final Lymphs, absolute 03/27/2024 15:06:52 1.27 1.00-4.80 (K/ul) Final Monos, Abs 03/27/2024 15:06:52 0.51 0.00-1.10 (K/uL) Final Eos, Abs 03/27/2024 15:06:52 0.06 0.00-0.70 (K/uL) Final Basos, Abs 03/27/2024 15:06:52 0.01 0.00-0.20 (K/uL) Final Performing Location [facility] [address]
--- OUTSIDE RECORDS SUMMARY | 2024-04-18 05:23 | External Medical Summary | Summary of Care ---
Author Name Unknown Organization [facility] Address [address] [place] [address] Phone [phone] Care Team Providers Care Insurance Territory Manager Name Role Phone Mariela Molina DO Primary Care Provider [phone] Reason for Visit * Reason Comments Outpatient Testing Encounter Details Date Type Department Care Team (Late st Contact Info) Description 03/27/2024 3:00 PM EDT Laboratory Laboratory [facility] [place] [address] [place] [phone] [facility] [address] Anaplastic thyroid carcinoma (HCC) Allergies Active Allergy Reactions Criticality Noted Date [...] mL 1 11/09/2023 Active Ergocalciferol 1.25 MG (59497 UT) Oral Capsule (Vitamin D2(Drisdol))Indic ations:Anaplastic thyroid [...] mRNA, LNP-s, No Pre serve, 2-Dose Series ([employer]) 04/25/2021,10/12/2020,09/21/2020 COVID-19, MRNA-LNP, 23-24, P F, 50 [...] on file documented as of this encounter Plan of Treatment Upcoming Encounters Date Type Department Care Team (Late st Contact Info) Description 03/28/2024 9:45 AM EDT Imaging Radiology [address] [place] [address] 04/08/2024 9:45 AM EDT Pharmacy Pharmacy Hematology Oncology [facility] [address] [place] [address] Gm, [facility] Hem/Onc [address] [place] [address] 04/11/2024 3:00 PM EDT Office Visit Family Practice [address] [place] 293 [place] [address] Mariela Molina DO 293 [place] [address] Pending Results Name Type Priority Associated Diagnoses Date /Time COMPREHENSIVE METABOLIC PANEL Lab STAT Anaplastic thyroid carcinoma (HCC) 03/27/2024 3:06 PM EDT TSH WITH FREE T4 IF INDICATED Lab Routine Anaplastic thyroid carcinoma (HCC) 03/27/2024 3:06 PM EDT Scheduled Procedures Name Priority Associated Diagnoses Date/Ti [...] Not on filedocumented as of this encounter Procedures Procedure Name Priority Date/Time Associated Diagnosis Comments DIFFERENTIAL, AUTOMATED STAT 03/27/2024 3:06 PM EDT Anaplastic thyroid carcinoma (HCC) CBC STAT 03/27/2024 3:06 PM EDT Anaplastic thyroid carcinoma (HCC) CBC STAT 03/27/2024 3:06 PM EDT Anaplastic thyroid carcinoma (HCC) DIFFERENTIAL, TECHNOLOGIST REVIEW Routine 03/27/2024 3:06 PM EDT Anaplastic thyroid carcinoma (HCC) documented in this encounter Results * DIFFERENTIAL, TECHNOLOGIST REVIEW (03/27/2024 3:06 PM EDT) nRBCs 03/27/2024 3:14 PM EDT [facility] 56-02 Blood Venous blood specimen / Unknown Venipuncture / Unknown 03/27/2024 3:06 PM EDT 03/27/2024 3:07 PM EDT Romaine Rolon MD LAB BLOOD ORDERABLES [facility] [address] [place] [address] * DIFFERENTIAL, AUTOMATED (03/27/2024 3:06 PM EDT) WBC 4.69 4.00 - 10.80 K/uL 03/27/2024 3:14 PM EDT [facility] 56-02 Neutrophils % 60.5 40.0 - 75.0 % 03/27/2024 3:14 PM EDT [facility] 56 Lymphocytes % 27.1 18.0 - 42.0 % 03/27/2024 3:14 PM EDT [facility] 56 Monocytes % 10.9 1.0 - 11.0 % 03/27/2024 3:14 PM EDT [facility] 56 Eosinophils % 1.3 0.0 - 6.0 % 03/27/2024 3:14 PM EDT [facility] 56 Basophils % 0.2 0.0 - 2.0 % 03/27/2024 3:14 PM EDT [facility] 56 Absolute Neutrophils 2.84 1.80 - 7.70 K/uL 03/27/2024 3:14 PM EDT [facility] 56 Absolute Lymphocytes 1.27 1.00 - 4.80 K/ul 03/27/2024 3:14 PM EDT [facility] Absolute Monocytes 0.51 0.00 - 1.10 K/uL 03/27/2024 3:14 PM EDT [facility] Absolute Eosinophils 0.06 0.00 - 0.70 K/uL 03/27/2024 3:14 PM EDT [facility] 56 Absolute Basophils 0.01 0.00 - 0.20 K/uL 03/27/2024 3:14 PM EDT [facility] Blood Venous blood specimen / Unknown Venipuncture / Unknown 03/27/2024 3:06 PM EDT 03/27/2024 3:07 PM EDT Romaine Rolon MD LAB BLOOD ORDERABLES [facility] [address] [place] [address] * (ABNORMAL) CBC (03/27/2024 3:06 PM EDT) WBC 4.69 4.00 - 10.80 K/uL 03/27/2024 3:14 PM EDT [facility] 56 RBC 3.74 3.85 - 5.15 M/uL 03/27/2024 3:14 PM EDT [facility] 56 HGB 10.6(L) 12.0 - 15.3 g/dL 03/27/2024 3:14 PM EDT [facility] 56 HCT 34.7(L) 36.0 - 45.2 % 03/27/2024 3:14 PM EDT [facility] 56 MCV 92.8 81.5 - 97.5 fL 03/27/2024 3:14 PM EDT [facility] 56 MCH 28.3 27.0 - 34.0 pg 03/27/2024 3:14 PM EDT [facility] 56 MCHC 30.5 32.0 - 36.0 g/dL 03/27/2024 3:14 PM EDT [facility] 56 RDW 18.7 11.5 - 15.5 % 03/27/2024 3:14 PM EDT [facility] 56 PLT 212 140 - 400 K/uL 03/27/2024 3:14 PM EDT [place] [address] MPV 9.6 6.6 - 11.1 fL 03/27/2024 3:14 PM EDT [facility] 56 Blood Venous blood specimen / Unknown Venipuncture / Unknown 03/27/2024 3:06 PM EDT 03/27/2024 3:07 PM EDT Romaine Rolon MD LAB BLOOD ORDERABLES [facility] [address] [place] [address] documented in this encounter Visit Diagnoses Diagnosis Anaplastic thyroid carcinoma (HCC) Malignant neoplasm of thyroid gland documented in this encounter Care Teams Insurance Territory Manager Relationship Specialty Start Date End Date Mariela Molina DO [address] [place] [address] PCP - General Family Medicine 02/20/24 documented as of this encounter
--- OUTSIDE RECORDS SUMMARY | 2024-04-18 05:23 | External Medical Summary ---
Author Name Unknown Address Unknown Organization [facility] [place] [address] Laboratory Report Ordering Provider Test Date Status GARRETT OLIVARES 03/27/2024 15:06:52 Final Observation Date Value Abnormality Reference (Units ) Status Nucleated erythrocytes/100 leukocytes [Ratio] in Blood by Automated count 03/27/2024 15:06:52 Final Performing Location [facility] [place] [address]
--- OUTSIDE RECORDS SUMMARY | 2024-04-18 05:23 | External Medical Summary | Summary of Care ---
Author Name Unknown Organization [facility] Address [address] [place] [address] Phone [phone] Care Team Providers Care Poll Clerk Name Role Phone Mariela Molina DO Primary Care Provider [phone] Reason for Visit * Reason Onset Date Comments Films 04/01/2024 Encounter Details Date Type Department Care Team (Late st Contact Info) Description 04/01/2024 Telephone Radiology Film File [address] [place] [address] Support, Imaging Radiology [address] [place] [address] Films Allergies Active Allergy Reactions Criticality Noted Date [...] mL 1 11/09/2023 Active Ergocalciferol 1.25 MG (45331 UT) Oral Capsule (Vitamin D2(Drisdol))Indic ations:Anaplastic thyroid [...] mRNA, LNP-s, No Pre serve, 2-Dose Series ([employer]) 04/25/2021,10/12/2020,09/21/2020 COVID-19, MRNA-LNP, 23-24, P F, 50 [...] No 08/24/2023 Does the household have a [facility] hospital[facility] source of income? (Household - for ages [...] encounter Miscellaneous Notes * Telephone Encounter - Michelle Torres, System Support - 04/01/2024 2:17 PM EDT [facility] requesting MRI csp 03/28/24 images be pushed through PACS. [place] Authorization to Release on file. Images pushed to [facility]ia Marcelo PACS external connection. documented in this encounter Plan of Treatment Upcoming Encounters Date Type Department Care Team (Late st Contact Info) Description 04/08/2024 9:45 AM EDT Pharmacy Pharmacy Hematology Oncology [facility] [place] [address] [place] [address] [facility] Hem[facility]Onc [address] [place] [address] 04/11/2024 3:00 PM EDT Office Visit Family Practice [address], [place] [address] [place] [phone] Mariela Molina DO [address] [place] [address] Scheduled Procedures Name Priority Associated Diagnoses Date/Ti [...] filedocumented as of this encounter Care Teams Poll Clerk Relationship Specialty Start Date End Date Mariela Molina DO 293 [facility] [place] [address] PCP - General Family Medicine 02/20/24 documented as of this encounter
--- OUTSIDE RECORDS SUMMARY | 2024-04-18 05:24 | External Medical Summary | Summary of Care ---
Author Name Unknown Organization [facility] Address [address] [place] [address] Phone [phone] Care Team Providers Care Education Nurse Name Role Phone Mariela Molina DO Primary Care Provider [phone] Reason for Visit * Reason Onset Date Comments Films 03/07/2024 Encounter Details Date Type Department Care Team (Late st Contact Info) Description 03/07/2024 Telephone Radiology Film File [address] [place] [address] Support, Imaging Radiology [address] [place] [address] Films Allergies Active Allergy Reactions Criticality Noted Date Comments Doxycycline Diarrhea,Nausea/vomiting 03/22/2021 Penicillins Nausea/vomiting 09/20/2018 documented as of this encounter (statuses as of 03/07/2024) Medications Medication Sig Dispensed Refills Start Date [...] mL 1 11/09/2023 Active Ergocalciferol 1.25 MG (34451 UT) Oral Capsule (Vitamin D2(Drisdol))Indic ations:Anaplastic thyroid [...] Additional Information Patient not taking.Reported on 02/21/2024 Acetaminophen 500 MG Oral Tablet (Tylenol) Take 2 Tablets by mouth in the morning and 2 Tablets at noon and 2 Tablets in the evening. Currently not taking. 02/13/2024 Active Eliquis 5 MG Oral TabletIndications :Acute deep [...] mouth daily. 30 Tablet 3 03/04/2024 Active oxyCODONE-Acetami nophen 5-325 MG Oral Tablet (Percocet) Take 1 Tablet by mouth every 4 hours as needed for Pain, Severe. 60 Tablet 03/06/2024 Active documented as of this encounter (statuses as of 03/07/2024) Active Problems Problem Noted Date Diagnosed Date [...] as of this encounter (statuses as of 03/07/2024) Resolved Problems Problem Noted Date Diagnosed Date Resolved Date Acute deep vein thrombosis ( DVT) of lower extremity 10/10/2022 09/25/2023 documented as of this encounter (statuses as of 03/07/2024) Immunizations Name Administration Dates Next Due COVID-19 mRNA, LNP-s, No Pre serve, 2-Dose Series ([employer]) 04/25/2021,10/12/2020,09/21/2020 COVID-19, MRNA-LNP, 23-24, P F, 50 [...] No 08/24/2023 Does the household have a [facility] source of income? (Household - for ages [...] Encounter - Michelle Torres, System Support - 03/07/2024 10:44 AM EDT [facility] requesting CT neck, CT cap 02/19/24 images be pushed through PACS. [place] Authorization to Release on file. Images pushed to [facility] PACS external connection. documented in this encounter Plan of Treatment Upcoming Encounters Date Type Department Care Team (Late st Contact Info) Description 03/12/2024 2:30 PM EDT Office Visit Palliative Medicine [facility] 200 [place] [address] [place] Mascorro MD [address] [place] [address] [place] [address] 03/25/2024 3:40 PM EDT Office Visit Family Practice [address] [place] 293 [place] [address] Mariela Molina DO 293 [place] [address] 04/08/2024 9:45 AM EDT Pharmacy Pharmacy Hematology Oncology [facility] [address] [place] [address] [facility] Hem/Onc [address] [place] [address] Scheduled Procedures Name Priority Associated Diagnoses Date/Ti [...] history exists DXA Scan 04/25/2026 04/25/2019, 04/25/2019 DTaP,Tdap,and Td Vaccines (2 - Td or Tdap) 12/28/2026 [...] filedocumented as of this encounter Care Teams Education Nurse Relationship Specialty Start Date End Date Mariela Molina DO [address] [place] [address] PCP - General Family Medicine 02/20/24 documented as of this encounter
--- OUTSIDE RECORDS SUMMARY | 2024-04-18 05:24 | External Medical Summary | Summary of Care ---
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); Metastasis to bone (HCC); Pathological compression fracture of cervical vertebra, initial encounter (HCC); Compression neuropathy; Acute deep vein thrombosis (DVT) of other vein of right upper extremity (HCC) Allergies Active Allergy Reactions Criticality Noted Date Comments Doxycycline Diarrhea,Nausea/vomiting 03/22/2021 Penicillins Nausea/vomiting 09/20/2018 documented as of this encounter (statuses as of 02/25/2024) Medications Medication Sig Dispensed Refills Start Date [...] mL 1 11/09/2023 Active Ergocalciferol 1.25 MG (19268 UT) Oral Capsule (Vitamin D2(Drisdol))Rubina cations:Anaplast ic thyroid carcinoma (HCC),Metastasis to bone (HCC),Vitamin D deficiency Take 1 Capsule by mouth every 14 days. 6 Capsule 2 12/25/2023 Active oxyCODONE-Acetam inophen 5-325 MG Oral Tablet (Percocet) Take 1 Tablet by mouth every 4 hours as needed for Pain, Severe. 60 Tablet 01/16/2024 Active Polyethylene Glycol 3350 17 GM Oral [...] taking. 02/13/2024 Active Eliquis 5 MG Oral TabletIndication s:Acute deep vein thrombosis (DVT) of other vein of right upper extremity (HCC) Take 1 Tablet by mouth in the morning and 1 Tablet before bedtime. 180 Tablet 3 02/21/2024 Active Eliquis 5 MG Oral TabletIndication s:Acute deep vein thrombosis (DVT) of other vein of right upper extremity (HCC) TAKE ONE TABLET BY MOUTH TWICE A DAY 180 Tablet 3 02/06/2023 Discontinue d(Refill) documented as of this encounter (statuses as of 02/25/2024) Active Problems Problem Noted Date Diagnosed Date [...] as of this encounter (statuses as of 02/25/2024) Resolved Problems Problem Noted Date Diagnosed Date Resolved Date Acute deep vein thrombosis ( DVT) of lower extremity 10/10/2022 09/25/2023 documented as of this encounter (statuses as of 02/25/2024) Immunizations Name Administration Dates Next Due COVID-19 mRNA, LNP-s, No Pre serve, 2-Dose Series ([employer]) 04/25/2021,10/12/2020,09/21/2020 COVID-19, MRNA-LNP, 23-24, P F, 50 [...] Passive Smoke Exposure: Never Smokeless Tobacco: Never Tobacco Cessation:Counseling Given: Yes Alcohol Use Standard Drinks/Week Comments Not Currently [...] No 08/24/2023 Does the household have a [facility] source of income? (Household - for ages [...] Sign Reading Time Taken Comments Blood Pressure 94/52 02/21/2024 3:58 PM EDT Pulse 95 02/21/2024 3:58 PM EDT Temperature 37.3 C (99.2 F) 02/21/2024 3:58 PM ED T Respiratory Rate 16 02/21/2024 3:58 PM EDT Oxygen Saturation 98% 02/21/2024 3:58 PM EDT Inhaled Oxygen Concentration - - Weight 43.7 kg (96 lb 4.8 oz) 02/21/2024 3:58 PM EDT Height 165.1 cm (5' 5") 02/21/2024 3:58 PM EDT Body Mass Index 16.03 02/21/2024 3:58 PM EDT documented in this encounter Progress Notes * Mariela Molina DO - 02/21/2024 4:08 PM EDT SUBJECTIVE: Chief Complaint Patient presents with Follow Up HPI: Delia Castillo is a 73 year old female who presents today for regular return. Pt continues tohave worsening metastatic disease secondary to her anaplastic thyroid cancer. She continues to havepain in her right arm. Really cannot use the arm at all. She is unable to lift her head significantly secondary to spread. Tumor is enlarging. She did meet with palliative to discuss pain control. She continue to lose weight. Pt plans to go to [facility] for another opinion. PHM: Patient Active Problem List Diagnosis IRON DEFIC ANEMIA NOS Benign neoplasm of colon Postprocedural hypothyroidism Hypoparathyroidism (HCC) Thyroid cancer (HCC) Secondary and unspecified malignant neoplasm of lymph nodes of head, face and neck (HCC) Protein-calorie malnutrition (HCC) Anaplastic thyroid carcinoma (HCC) Encounter for antineoplastic immunotherapy Hypercalcemia Hyperparathyroidism (HCC) Malignant neoplasm metastatic to both lungs (HCC) Current Outpatient Medications Medication Sig Dispense Refill Multivitamin Adult Oral Tablet Take 1 Tablet by mouth in the morning. Khurram Woodard multivitamin . Calcitriol 0.25 MCG Oral Capsule (Rocaltrol) TAKE ONE CAPSULE BY MOUTH TWICE A DAY 180 Capsule 3 Eliquis 5 MG Oral Tablet TAKE ONE TABLET BY MOUTH TWICE A DAY 180 Tablet 3 Magic Mouthwash (Ssbkqcfwf-Kjzivleo-Pzysclqt) oral solution Swish and spit 15 mL in the morning and15 mL before bedtime. 200 mL 1 Ergocalciferol 1.25 MG (85555 UT) Oral Capsule (Vitamin D2(Drisdol)) Take 1 Capsule by mouth every 14 days. 6 Capsule 2 oxyCODONE-Acetaminophen 5-325 MG Oral Tablet (Percocet) Take 1 Tablet by mouth every 4 hours as needed for Pain, Severe. 60 Tablet 0 Polyethylene Glycol 3350 17 GM Oral Packet (Miralax) Take 1 Packet by mouth daily as needed for Constipation. Trametinib Dimethyl Sulfoxide 2 MG Oral Tablet (Mekinist) Take 1 tablet by mouth in the morning. Keep refrigerated. Take on an empty stomach. (Patient taking differently: Take 1 Tablet by mouth in the morning. Takes at night.) 30 Tablet 5 Dabrafenib Mesylate 75 MG Oral Capsule (Tafinlar) Take 2 Capsules by mouth in the morning and 2 Capsules before bedtime. 120 Capsule 6 Pregabalin 100 MG Oral Capsule (Lyrica) Take 1 Capsule by mouth in the morning and 1 Capsule at noon and 1 Capsule before bedtime. 90 Capsule 0 Levothyroxine Sodium 100 MCG Oral Tablet (Levoxyl) Take 1 tablet by mouth once daily. 90 Tablet 3 Acetaminophen 500 MG Oral Tablet (Tylenol) Take 2 Tablets by mouth in the morning and 2 Tablets at noon and 2 Tablets in the evening. Currently not taking. Calcium Citrate-Vitamin D3 315-6.25 MG-MCG Oral Tablet (Calcium Citrate + D3 Maximum) Take by mouth2 times a day. (Patient not taking: Reported on 02/21/2024) First-Mouthwash BLM Mouth/Throat Suspension Swish and swallow 10 mL every 4 hours as needed. (Patient not taking: Reported on 02/21/2024) Lidocaine 4 % External Patch (Aspercreme) Place 1 Patch over 12 hours topically on the skin daily. (Patient not taking: Reported on 02/21/2024) 30 Patch 0 No current facility-administered medications for this [...] performed by Madisyn Montiel MD at [facility] COLONOSCOPY, DIAGNOSTIC (RECTUM) 09/24/2018 rectal ulcer, repeat 5 yrs/COLONOSCOPY FLEXIBLE PROXIMAL DIAGNOSTIC performed by Madisyn Montiel MD at [facility] MISCELLANEOUS ORDER mole removed from leg 1989 [...] REVIEW OF SYSTEMS: Review of Systems Constitutional: Negative for chills, fatigue, fever and unexpected weight change. HENT: As per HPI Respiratory: Negative for cough, chest tightness, shortness of breath and wheezing. Cardiovascular: Negative for chest pain, palpitations and leg swelling. Gastrointestinal: Negative for abdominal pain, constipation, diarrhea, nausea and vomiting. Musculoskeletal: Negative for arthralgias, gait problem and joint swelling. Skin: Negative for color change, pallor and rash. OBJECTIVE: BP 94/52 (BP Site: Left Arm, BP Position: Sitting, BP Cuff Size: Regular) | Pulse 95 | Temp 37.3 C (99.2 F) (Tympanic) | Resp 16 | Ht 1.651 m (5' 5") | Wt 43.7 kg (96 lb 4.8 oz) | LMP 07/12/2000 | SpO2 98% | BMI 16.03 kg/m | BSA 1.42 m PHYSICAL EXAM: Physical Exam Constitutional: General: She is not in acute distress. Appearance: She is well-developed. She is ill-appearing. Neck: Comments: Significant tumor burden on right side of neck Cardiovascular: Rate and Rhythm: Normal rate and regular rhythm. Heart sounds: Normal heart sounds. No murmur heard. No friction rub. No gallop. Pulmonary: Effort: Pulmonary effort is normal. No respiratory distress. Breath sounds: Normal breath sounds. No wheezing or rales. Abdominal: General: Bowel sounds are normal. There is no distension. Palpations: Abdomen is soft. Tenderness: There is no abdominal tenderness. There is no guarding. Musculoskeletal: General: Deformity present. No tenderness. Comments: Swelling of right arm, unable to lift head to neutral position Skin: General: Skin is warm and dry. Coloration: Skin is not pale. Findings: No erythema or rash. Neurological: Mental Status: She is alert and oriented to person, place, and time. Comments: Unable to move right arm ASSESSMENT/PLAN: (C73) Anaplastic thyroid carcinoma (HCC) (primary encounter diagnosis) (C78.01, C78.02) Malignant neoplasm metastatic to both lungs (HCC) (C79.51) Metastasis to bone (HCC) (M48.52XA) Pathological compression fracture of cervical vertebra, initial encounter (HCC) G58.9) Compression neuropathy Plan: Long and farheen discussion with pt today. Reviewed worsening spread of her cancer. Reviewed that this cancer will kill her. Reviewed her goals of care. She is really not sure what she would liketo pursue presently. She acknowledges that [facility] is a "last ditch effort". I was farheen with her and advised I am not even sure it is safe for her to make the trip there, nor do I think she is st dinh enough to endure days of testing and appts as ordered. Reviewed traditional care vs hospice care. She would like to think about this. Asks that I reach out to Dr. Hernandez so I will call. Offered [facility] as I feel it is inappropriate for them to not at least offer telephone visit priorto her going there to see if she is even appropriate to be seen. She asks I call Dr. Hernandez first. Advised to call me with any questions. (I82.461) Acute deep vein thrombosis (DVT) of other vein of right upper extremity (HCC) Plan: Eliquis 5 MG Oral Tablet Refill sent. Follow-up: 1 month Total time today including reviewing chart before the visit, pertinent labs, imaging reports, face to face time, and documentation time was 45 minutes. Mariela Molina DO documented in this encounter Nursing Notes * Gisselle Mahoney LPN - 02/21/2024 3:55 PM EDT Patient here for routine follow up visit. Reports she will need refill on Calcitriol. Pt reports she is having shooting pains down her right arm. Increased need for oxycodone. Had CT and lab work - concerned about liver enzymes. CT has shown tumor has enlarged. Has appt with Doctor in [place] on March 10. documented in this encounter Plan of Treatment Upcoming Encounters Date Type Department Care Team (Late st Contact Info) Description 02/27/2024 8:45 AM EDT Office Visit Hematology/Oncology [facility] [address] [place] [address] Romaine Rolon MD [address] [place] [address] 03/12/2024 2:30 PM EDT Office Visit Palliative Medicine [facility] [address] [place] [address] Britt Mascorro MD [address] [place] [address] 03/25/2024 3:40 PM EDT Office Visit Family Practice [address] [place] [address] [address] [place] [address] Mariela Molina DO [address] [place] [address] 04/08/2024 9:45 AM EDT Pharmacy Pharmacy Hematology Oncology [facility] [address] [place] [address] [facility], [facility] Hem[facility]Onc [address] [place] [address] Scheduled Procedures Name Priority Associated Diagnoses Date/Ti [...] 2024 06/16/2023, 04/10/2022, 04/30/2020, Additional history exists Depression Screening 08/24/2024 08/24/2023 TSH 02/18/2025 02/19/2024, [...] (HCC)- Primary Malignant neoplasm of thyroid gland Malignant 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
--- OUTSIDE RECORDS SUMMARY | 2024-04-18 05:24 | External Medical Summary | Summary of Care ---
Author Name Unknown Organization [facility] Address [address] [place] [address] Phone [phone] Care Team Providers Care Granite Polisher Machine Name Role Phone Mariela Molina DO Primary Care Provider [phone] Reason for Visit * Reason Onset Date Comments Medication Refill 03/06/2024 Encounter Details Date Type Department Care Team (Late st Contact Info) Description 03/06/2024 Refill Palliative Medicine [facility] [address] [place] [address] Britt Mascorro MD [address] [place] [address] Allergies Active Allergy Reactions Criticality Noted Date Comments Doxycycline Diarrhea,Nausea/vomiting 03/22/2021 Penicillins Nausea/vomiting 09/20/2018 documented as of this encounter (statuses as of 03/06/2024) Medications Medication Sig Dispensed Refills Start Date [...] mL 1 11/09/2023 Active Ergocalciferol 1.25 MG (43218 UT) Oral Capsule (Vitamin D2(Drisdol))Rubina cations:Anaplast ic [...] mouth daily. 30 Tablet 3 03/04/2024 Active oxyCODONE-Acetam inophen 5-325 MG Oral Tablet (Percocet) Take 1 Tablet by mouth every 4 hours as needed for Pain, Severe. 60 Tablet 03/06/2024 Active oxyCODONE-Acetam inophen 5-325 MG Oral Tablet (Percocet) Take 1 Tablet by mouth every 4 hours as needed for Pain, Severe. 60 Tablet 01/16/2024 Discontinue d(Refill) documented as of this encounter (statuses as of 03/06/2024) Active Problems Problem Noted Date Diagnosed Date [...] as of this encounter (statuses as of 03/06/2024) Resolved Problems Problem Noted Date Diagnosed Date Resolved Date Acute deep vein thrombosis ( DVT) of lower extremity 10/10/2022 09/25/2023 documented as of this encounter (statuses as of 03/06/2024) Immunizations Name Administration Dates Next Due COVID-19 mRNA, LNP-s, No Pre serve, 2-Dose Series ([employer]) 04/25/2021,10/12/2020,09/21/2020 COVID-19, MRNA-LNP, 23-24, P F, 50 [...] encounter Miscellaneous Notes * Telephone Encounter - Martell Badillo CRNP - 03/06/2024 8:45 AM EDTSigned Prescriptions: Disp Refills oxyCODONE-Acetaminophen 5-325 MG Oral Tabl*60 Tab*0 Sig: Take 1 Tablet by mouth every 4 hours as needed for Pain, Severe.Authorizing Provider: MARTELL BADILLO----- * Telephone Encounter - Martell Badillo CRNP - 03/06/2024 8:45 AM EDT I have reviewed the patients controlled substance dispensing history in the Prescription Drug Monitoring Program in compliance with the [facility] regulations before prescribing a controlled substance. * Telephone Encounter - Shanelle Isaac LPN - 03/06/2024 7:44 AM EDTPending Prescriptions: Disp Refills oxyCODONE-Acetaminophen 5-325 MG Oral Tabl*60 Tab*0 Sig: Take 1 Tablet by mouth every 4 hours as needed for Pain, Severe. * Telephone Encounter - Shanelle Isaac LPN - 03/06/2024 7:43 AM EDT Did you pend patient's preferred pharmacy and medication before forwarding?yes Pharmacy: [facility] [address] [place] [address] [place] [address] Authorization for medication useage called to indicated pharmacy per Dr. Mascorro due to Delia Castillo. Last Visit: 02/13/2024 (in office), Visit date not found (telemedicine) Next Visit: 03/12/2024 If no future appointments scheduled, and last appointment is greater than a year ago, please schedule patient for a follow-up appointment Last date the medication was ordered: 01/15 Is this request for a controlled substance?No Urine Drug Screen:No results found for this or any previous visit. Patient Phone Numbers Labs: Lab Results Component Value Date/Time CREAT 1.0 02/19/2024 12:45 PM CREAT 1.1 (H) 02/10/2020 04:53 PM POTASSIUM 3.8 02/19/2024 12:45 PM POTASSIUM 3.9 02/10/2020 04:53 PM TSH 15.90 (H) 02/19/2024 12:45 PM TSH 0.32 04/29/2020 04:15 PM LDLCALC 104 05/16/2022 12:34 PM LDLCALC 98 02/13/2019 12:05 PM ALT 26 02/19/2024 12:45 PM documented in this encounter Plan of Treatment Upcoming Encounters Date Type Department Care Team (Late st Contact Info) Description 03/12/2024 2:30 PM EDT Office Visit Palliative Medicine [facility] [address] [place] [phone] Britt Mascorro MD [address] [place] [address] 03/25/2024 3:40 PM EDT Office Visit Family Practice [address] [place] [address] [address] [place] [address] Mariela Molina DO [address] [place] [address] 04/08/2024 9:45 AM EDT Pharmacy Pharmacy Hematology Oncology [facility] [address] [place] [address] [facility] Hem[facility]Onc [address] [place] [address] Scheduled Procedures Name Priority Associated Diagnoses Date/Ti [...] filedocumented as of this encounter Care Teams Granite Polisher Machine Relationship Specialty Start Date End Date Mariela Molina DO [address] [place] [address] PCP - General Family Medicine 02/20/24 documented as of this encounter
--- OUTSIDE RECORDS SUMMARY | 2024-04-18 05:24 | External Medical Summary | Summary of Care ---
Author Name Unknown Organization [facility] Address [address] [place] [address] Phone [phone] Care Team Providers Care Solo Truck Driver Name Role Phone Mariela Molina DO Primary Care Provider [phone] Reason for Referral * Precert (Within 10 days (routine)) - Pending Review Specialty Diagnoses / Procedures Referred By Odalys siu Referred To Contact Radiology Diagnoses Malignant neoplasm of thyroid gland (HCC) Procedures MRI C SPINE W WO CONTRAST Belkis Arellano PA-C [address] [place] [address] Referral ID Status Reason Start Date Expiration Date V isits Requested Visits Authorized [id number] Pending Review 03/28/[phone] Encounter Details Date Type Department Care Team (Late st Contact Info) Description 03/12/2024 Orders Only [facility] [address] [facility] [address] Requisition, External Radiology [address] [place] [address] Malignant neoplasm of thyroid gland (HCC)* Allergies Active Allergy Reactions Criticality Noted Date Comments Doxycycline Diarrhea,Nausea/vomiting 03/22/2021 Penicillins Nausea/vomiting 09/20/2018 documented as of this encounter (statuses as of 03/12/2024) Medications Medication Sig Dispensed Refills Start Date [...] mL 1 11/09/2023 Active Ergocalciferol 1.25 MG (06172 UT) Oral Capsule (Vitamin D2(Drisdol))Indic ations:Anaplastic thyroid [...] for Pain, Severe. 60 Tablet 03/06/2024 Active Morphine Sulfate ER 15 MG Oral Tablet Extended Release (Ms Contin)Indication s:Cancer related pain Take 1 Tablet by mouth in the morning and 1 Tablet before bedtime. 28 Tablet 03/12/2024 Active documented as of this encounter (statuses as of 03/12/2024) Active Problems Problem Noted Date Diagnosed Date [...] as of this encounter (statuses as of 03/12/2024) Resolved Problems Problem Noted Date Diagnosed Date Resolved Date Acute deep vein thrombosis ( DVT) of lower extremity 10/10/2022 09/25/2023 documented as of this encounter (statuses as of 03/12/2024) Immunizations Name Administration Dates Next Due COVID-19 mRNA, LNP-s, No Pre serve, 2-Dose Series ([employer]) 04/25/2021,10/12/2020,09/21/2020 COVID-19, MRNA-LNP, 23-24, P F, 50 [...] Team (Late st Contact Info) Description 03/25/2024 3:40 PM EDT Office Visit Family Practice [address] [place] [address] [place] [address] Mariela Molina DO [address] [place] [address] 03/26/2024 2:00 PM EDT Telemedicine Palliative Medicine [facility] [address] [place] [phone] Britt Mascorro MD [address] [place] [address] 03/28/2024 9:45 AM EDT Imaging Radiology [address] [place] [address] 04/08/2024 9:45 AM EDT Pharmacy Pharmacy Hematology Oncology [facility] [address] [place] [address] [facility], [facility] Hem[facility]Onc [address] [place] [address] Scheduled Orders Name Type Priority Associated Diagnoses Orde r Schedule MRI C SPINE W WO CONTRAST Medical Imaging Routine Malignant neoplasm of thyroid gland (HCC) Expected: 03/28/2024, Expires: 09/07/2024 Scheduled Procedures Name Priority Associated Diagnoses Date/Ti [...] this encounter Visit Diagnoses Diagnosis Malignant neoplasm of thyroid gland (HCC)- Primary Malignant neoplasm of thyroid gland documented in this encounter Care Teams Solo Truck Driver Relationship Specialty Start Date End Date Mariela Molina DO [address] [place] [address] PCP - General Family Medicine 02/20/24 documented as of this encounter
--- OUTSIDE RECORDS SUMMARY | 2024-04-18 05:24 | External Medical Summary | Summary of Care ---
Author Name Unknown Organization [facility] Address [address] [place] [address] Phone [phone] Care Team Providers Care Group President Name Role Phone Mariela Molina DO Primary Care Provider [phone] Encounter Details Date Type Department Care Team (Late st Contact Info) Description 02/20/2024 Telephone Hematology/Oncology [facility] [place] 200 [facility] [place] [address] Romaine [facility] [address] [facility] [address] Allergies Active Allergy Reactions Criticality Noted Date Comments Doxycycline Diarrhea,Nausea/vomiting 03/22/2021 Penicillins Nausea/vomiting 09/20/2018 documented as of this encounter (statuses as of 02/20/2024) Medications Medication Sig Dispensed Refills Start Date End Date Status Multivitamin Adult Oral Tablet Take 1 Tablet by mouth in the morning. Khurram Woodard multivitamin . Active Calcitriol 0.25 MCG Oral Capsule (Rocaltrol) TAKE ONE CAPSULE BY MOUTH TWICE A DAY 180 Capsule 3 11/30/2022 Active Eliquis 5 MG Oral TabletIndications :Acute deep vein thrombosis (DVT) of other vein of right upper extremity (HCC) TAKE ONE TABLET BY MOUTH TWICE A DAY 180 Tablet 3 02/06/2023 03/18/2024 Active Calcium Citrate-Vitamin D3 315-6.25 MG-MCG Oral [...] mL 1 11/09/2023 Active Ergocalciferol 1.25 MG (44207 UT) Oral Capsule (Vitamin D2(Drisdol))Indic ations:Anaplastic thyroid carcinoma (HCC),Metastasis to bone (HCC),Vitamin D deficiency Take 1 Capsule by mouth every 14 days. 6 Capsule 2 12/25/2023 Active oxyCODONE-Acetami nophen 5-325 MG Oral Tablet [...] empty stomach. 30 Tablet 5 02/04/2024 Active Dabrafenib Mesylate 75 MG Oral Capsule (Tafinlar)Indicat [...] the skin daily. 30 Patch 02/13/2024 Active Acetaminophen 500 MG Oral Tablet (Tylenol) Take 2 Tablets by mouth in the morning and 2 Tablets at noon and 2 Tablets in the evening. 02/13/2024 Active documented as of this encounter (statuses as of 02/20/2024) Active Problems Problem Noted Date Diagnosed Date [...] as of this encounter (statuses as of 02/20/2024) Resolved Problems Problem Noted Date Diagnosed Date Resolved Date Acute deep vein thrombosis ( DVT) of lower extremity 10/10/2022 09/25/2023 documented as of this encounter (statuses as of 02/20/2024) Immunizations Name Administration Dates Next Due COVID-19 mRNA, LNP-s, No Pre serve, 2-Dose Series (Vint) 04/25/2021,10/12/2020,09/21/2020 COVID-19, MRNA-LNP, 23-24, P F, 50 [...] encounter Miscellaneous Notes * Telephone Encounter - Ladonna Talley OSA - 02/20/2024 12:30 PM EDT Called [facility] has referral and will call pt to schedule * Telephone Encounter - Ladonna Talley OSA - 02/20/2024 9:03 AM EDT RADIATION/ONCOLOGY REFERRAL OP Status: Needs Scheduling Requested appt date: Authorizing: Romaine Rolon MD in HEM/ONC [facility] Referral: [id number] (Authorized) Priority: Within 10 days (routine) Diagnosis: Anaplastic thyroid carcinoma (HCC) [C73] Metastasis to bone (HCC) [C79.51] 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] Called and left message to [facility] for rad onc Will try again later documented in this encounter Plan of Treatment Upcoming Encounters Date Type Department Care Team (Late st Contact Info) Description 02/21/2024 3:40 PM EDT Office Visit Family Practice [address], [place] [facility] [address] Mariela [facility]ina DO [facility] [address] 02/27/2024 8:45 AM EDT Office Visit Hematology/Oncology [facility] [address] [place] [address] Romaine Rolon MD 200 [place] [address] 03/12/2024 2:30 PM EDT Office Visit Palliative Medicine [facility] 200 [facility] [place] [address] Britt Mascorro MD [address] [place] [address] 04/08/2024 9:45 AM EDT Pharmacy Pharmacy Hematology Oncology [facility] [address] [place] [address] [facility] Hem/Onc [address] [place] [address] Scheduled Procedures Name Priority Associated Diagnoses Date/Ti [...] filedocumented as of this encounter Care Teams Group President Relationship Specialty Start Date End Date Mariela Molina DO PCP - General Family Medicine 02/09/22 documented as of this encounter
--- OUTSIDE RECORDS SUMMARY | 2024-04-18 05:24 | External Medical Summary | Summary of Care ---
Author Name Unknown Organization [facility] Address [address] [place] [address] Phone [phone] Care Team Providers Care Dental Intern Name Role Phone Mariela Molina DO Primary Care Provider [phone] Reason for Visit * Reason Onset Date Comments Films 03/03/2024 Encounter Details Date Type Department Care Team (Late st Contact Info) Description 03/03/2024 Telephone Radiology Film File [address] [place] [address] Support, Imaging Radiology [address] [place] [address] Films Allergies Active Allergy Reactions Criticality Noted Date Comments Doxycycline Diarrhea,Nausea/vomiting 03/22/2021 Penicillins Nausea/vomiting 09/20/2018 documented as of this encounter (statuses as of 03/03/2024) Medications Medication Sig Dispensed Refills Start Date [...] mL 1 11/09/2023 Active Ergocalciferol 1.25 MG (05182 UT) Oral Capsule (Vitamin D2(Drisdol))Indic ations:Anaplastic thyroid [...] before bedtime. 180 Tablet 3 02/21/2024 Active documented as of this encounter (statuses as of 03/03/2024) Active Problems Problem Noted Date Diagnosed Date [...] as of this encounter (statuses as of 03/03/2024) Resolved Problems Problem Noted Date Diagnosed Date Resolved Date Acute deep vein thrombosis ( DVT) of lower extremity 10/10/2022 09/25/2023 documented as of this encounter (statuses as of 03/03/2024) Immunizations Name Administration Dates Next Due COVID-19 mRNA, LNP-s, No Pre serve, 2-Dose Series (BioTime) 04/25/2021,10/12/2020,09/21/2020 COVID-19, MRNA-LNP, 23-24, P F, 50 [...] encounter Miscellaneous Notes * Telephone Encounter - Mckay Lee OSA - 03/03/2024 12:00 PM EDT [facility] faxed request for CT, MRI of thyroid neck and chest. Created CD and mailed on 03/03/2024. [facility] [id number]. [place] Authorization to Release form on file. documented in this encounter Plan of Treatment Upcoming Encounters Date Type Department Care Team (Late st Contact Info) Description 03/12/2024 2:30 PM EDT Office Visit Palliative [facility] [place] [address] Britt Mascorro MD [address] [place] [address] [place] [id number] 03/25/2024 3:40 PM EDT Office Visit Family Practice 65 [facility] 293 [place] [address] Mariela Molina DO 293 [place] [address] 04/08/2024 9:45 AM EDT Pharmacy Pharmacy Hematology Oncology [place] [address] [place] [address] [facility], [facility] Hem/Onc [address] [place] [address] Scheduled Procedures Name Priority Associated Diagnoses Date/Ti [...] filedocumented as of this encounter Care Teams Dental Intern Relationship Specialty Start Date End Date Mariela Molina DO [address] [place] [address] PCP - General Family Medicine 02/20/24 documented as of this encounter
--- OUTSIDE RECORDS SUMMARY | 2024-04-18 05:24 | External Medical Summary | Summary of Care ---
Author Name Unknown Organization [facility] Address [address] [place] [address] Phone [phone] Care Team Providers Care Collections Attorney Name Role Phone Mariela Molina DO Primary Care Provider [phone] Encounter Details Date Type Department Care Team (Late st Contact Info) Description 03/21/2024 11:30 AM EDT Telemedicine Palliative Medicine, [facility] 400 [facility] 5[address] [place] [address] Britt Mascorro MD [address] [place], [place] [phone] Cancer related pain* Allergies Active Allergy Reactions Criticality Noted Date Comments Doxycycline Diarrhea,Nausea/vomiting 03/22/2021 Penicillins Nausea/vomiting 09/20/2018 documented as of this encounter (statuses as of 03/21/2024) Medications Medication Sig Dispensed Refills Start Date [...] hours as needed. 4 Active Magic Mouthwash (Lidocaine-[place] dryl-Nystatin) oral solution Swish and spit 15 mL in the morning and 15 mL before bedtime. 200 mL 1 4 Active Ergocalciferol 1.25 MG (35364 UT) Oral Capsule (Vitamin D2(Drisdol))Ind ications:Anapla stic thyroid carcinoma (HCC),Metastasi s to bone (HCC),Vitamin D deficiency Take 1 Capsule by mouth every 14 days. 6 Capsule 2 4 Active Polyethylene Glycol 3350 17 GM Oral Packet (Miralax) Take 1 Packet by mouth daily as needed for Constipation. 4 Active Trametinib Dimethyl Sulfoxide 2 MG Oral Tablet (Mekinist)Indic ations:Anaplast ic thyroid carcinoma (HCC) Take 1 tablet by mouth in the morning. Keep refrigerated. Take on an empty stomach. 30 Tablet 5 4 Active Additional Information Patient taking differently:2 mg Oral Daily(AM),Takes at night, Reported on 02/21/2024 Dabrafenib Mesylate 75 MG Oral Capsule (Tafinlar)Indic ations:Anaplast ic thyroid carcinoma (HCC) Take 2 Capsules by mouth in the morning and 2 Capsules before bedtime. 120 Capsule 6 4 Active Pregabalin 100 MG Oral Capsule [...] 12 hours. 120 Capsule 3 4 Active Mekinist 2 MG Oral Tablet (Trametinib Dimethyl Sulfoxide) Take 1 tablet (2 mg total) by mouth daily. 30 Tablet 3 4 Active Morphine Sulfate ER 15 MG Oral Tablet Extended Release (Ms Contin)Indicati ons:Cancer related pain Take 1 Tablet by mouth in the morning and 1 Tablet before bedtime. 28 Tablet 4 Active oxyCODONE HCl 10 MG Oral Tablet (Roxicodone)Ind ications:Cancer related pain Take 1 Tablet by mouth every 4 hours as needed for Pain, Severe. 60 Tablet 4 Active Acetaminophen 500 MG Oral Tablet (Tylenol)Indica tions:Cancer related pain Take 2 Tablets by mouth in the morning and 2 Tablets at noon and 2 Tablets in the evening. Currently not taking. 4 Active Acetaminophen 500 MG Oral Tablet (Tylenol) Take 2 Tablets by mouth in the morning and 2 Tablets at noon and 2 Tablets in the evening. Currently not taking. 4 03/21/20 24 Discontinued(Ref ill) oxyCODONE-Aceta minophen 5-325 MG Oral Tablet (Percocet) Take 1 Tablet by mouth every 4 hours as needed for Pain, Severe. 60 Tablet 4 03/21/20 24 Discontinued oxyCODONE-Aceta minophen 5-325 MG Oral Tablet (Percocet) Take 1 Tablet by mouth every 4 hours as needed for Pain, Severe. 60 Tablet 4 03/21/20 24 Discontinued documented as of this encounter (statuses as of 03/21/2024) Active Problems Problem Noted Date Diagnosed Date [...] as of this encounter (statuses as of 03/21/2024) Resolved Problems Problem Noted Date Diagnosed Date Resolved Date Acute deep vein thrombosis ( DVT) of lower extremity 10/10/2022 09/25/2023 documented as of this encounter (statuses as of 03/21/2024) Immunizations Name Administration Dates Next Due COVID-19 mRNA, LNP-s, No Pre serve, 2-Dose Series (Domee) 04/25/2021,10/12/2020,09/21/2020 COVID-19, MRNA-LNP, 23-24, P F, 50 [...] Progress Notes * Britt Mascorro MD - 03/21/2024 11:30 AM EDT Palliative Medicine Outpatient Progress Note IN HOME TELEMEDICINE VISIT [facility] [address] [place] [address] Name: Ivette Castillo Date: 03/21/2024 I was in a hospital or clinic location. After connecting through televideo, patient was verified with two unique identifiers. Patient (or authorized legal direct marketing representative) was then informed that this was [...] and symptom management. At last visit, we added MS Contin 15mg BID. She had some questions about pain medications so VV was arranged for today. Reports overall, things are "kind of richard" Feels a lot of pain, but not sure she is taking medications correctly Spoke to a friend who was a nurse who had a friend who helped with scheduling Tylenol so she is interested in doing that. Examination: No vital signs as this is a telemedicine encounter Constitutional: no acute distress, chronically ill HENT: normocephalic, atraumatic. Eyes: anicteric, sclera and conjunctiva normal. Neck: no stridor Chest: normal respiratory effort Abdominal: nondistended Extremities: no edema Decision-making Capacity: Does Patient have Decisional Capacity? y Does Patient have a Healthcare Agent? Y, Sunday Advanced Care Planning (see ACP Tab): See prior ASSESSMENT/PLAN: Ivette Castillo is a 73 year [...] spinal stenosis - Added MS Contin 15mg BID, continue this for now too - Change Percocet to Oxycodone 10mg q4h PRN - Schedule Tylenol 1000mg TID (can take generic) - Will have nursing check in next [...] Next visit with me. Britt Mascorro MD [facility] Palliative Medicine [phone] documented in this encounter Plan of Treatment Upcoming Encounters Date Type Department Care Team (Late st Contact Info) Description 03/25/2024 10:15 AM EDT Scheduled Telephone Palliative Medicine, [facility] [address] [facility] [address] [place] [address] De, Nurse Palliative Medicine [address] [place] [address] 03/25/2024 3:40 PM EDT Office Visit Family Practice [address] [place] [address] 293 [place] [address] Mariela Molina DO 293 [place] [address] 03/26/2024 2:00 PM EDT Telemedicine Palliative Medicine [facility] 200 [place] [address] Britt Mascorro MD [address] [place] [address] 03/28/2024 9:45 AM EDT Imaging Radiology [facility]st [facility] [address] [facility] [place] [address] 04/08/2024 9:45 AM EDT Pharmacy Pharmacy Hematology Oncology [facility] [address] [place] [address] [facility] Hem/Onc [address] [place] [address] Scheduled Procedures Name Priority Associated Diagnoses Date/Ti [...] (chronic) documented in this encounter Care Teams Collections Attorney Relationship Specialty Start Date End Date Mariela Molina DO [address] [place] [address] PCP - General Family Medicine 02/20/24 documented as of this encounter
--- OUTSIDE RECORDS SUMMARY | 2024-04-18 05:24 | External Medical Summary | Summary of Care ---
Author Name Unknown Organization [facility] Address [address] [place] [address] Phone [phone] Care Team Providers Care Strategic Communications Specialist Name Role Phone Mariela Molina DO Primary Care Provider [phone] Reason for Visit * Reason Comments Follow Up Encounter Details Date Type Department Care Team (Late st Contact Info) Description 03/12/2024 11:30 AM EDT Office Visit Palliative Medicine [facility] 200 [place] [address] Britt Mascorro MD [address] [place] [address] Cancer related pain*; Palliative care encounter; Anaplastic thyroid carcinoma (HCC) Allergies Active Allergy [...] mL 1 11/09/2023 Active Ergocalciferol 1.25 MG (36525 UT) Oral Capsule (Vitamin D2(Drisdol))Indic ations:Anaplastic thyroid [...] mRNA, LNP-s, No Pre serve, 2-Dose Series (CloudGenix) 04/25/2021,10/12/2020,09/21/2020 COVID-19, MRNA-LNP, 23-24, P F, 50 [...] No 08/24/2023 Does the household have a [facility] source of income? (Household - for [...] Sign Reading Time Taken Comments Blood Pressure 110/69 03/12/2024 11:35 AM EDT Pulse 71 03/12/2024 11:34 AM EDT Temperature 36.3 C (97.4 F) 03/12/2024 11:34 AM E DT Respiratory Rate - - Oxygen Saturation 98% 03/12/2024 11:34 AM EDT Inhaled Oxygen Concentration - - Weight 43.3 kg (95 lb 6.4 oz) 03/12/2024 11:34 A M EDT Height - - Body Mass Index 15.88 02/21/2024 3:58 PM EDT documented in this encounter Patient Instructions * Patient Instructions* Britt Mascorro MD - 03/12/2024 12:05 PM EDT On morning of MRI which is scheduled for 945am - Take morning medications (Lyrica, Eliquis, Thyroid meds, MS Contin (long acting morphine) when you get up. 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 At last visit, we added a Lidoderm patch to use 12 hours on / 12 hours off Reports pain is worse, she is taking Lyrica every 8 hours, 6am, then hand wasn't hurtnig as much, then started to feel more pain, then felt more pain Taking oxycodone q4h - taking at least 4 per day. Spoke to Dr Frederick who referred to MD Santos, by that time was having such severe pain. Had a phonemeeting last Sunday with him, and Dr Frederick called MD Santos, and then she got a call from the repat MD Santos and they decided it was not worth it to make the trip. Seeing Dr Rolon at [facility], will be getting radiation, but first has to get an MRI on 03/28, then will needt imef or planning, Palliative symptoms: Pain: Worse, as above Located at: R arm mainly Nausea/Vomiting: no Appetite: OK Constipation: OK Confusion: no Sleep issues: no Dyspnea: no Mood issues: no Falls: no Other: Examination: BP 110/69 | Pulse 71 | Temp 36.3 C (97.4 F) (Tympanic) | Wt 43.3 kg (95 lb 6.4 oz) | LMP 07/12/2000 | SpO2 98% | BMI 15.88 kg/m | BSA 1.41 m Constitutional: no acute distress, chronically ill HENT: normocephalic, atraumatic. Eyes: anicteric, sclera and conjunctiva normal. Neck: no stridor Chest: normal respiratory effort Abdominal: nondistended Extremities: no edema Data Review: External notes reviewed: - Reviewed notes from Dr Rolon, Rad onc, plan is for radiation - Reviewed notes from Dr Molina, who spoke to Dr Hernandez, who said there are likely no other tx options for her Lab / Imaging Results: Hb 10.4, normal Information obtained from for collateral history ASSESSMENT/PLAN: Delia Castillo is a 73 year old [...] do video visits. Next visit with me. I spent a total of 41 minutes on the date of service in preparation, delivery, and documentation ofthe care provided to Delia Castillo excluding any time spent in the performance of separately billed services. Britt Mascorro MD [facility] Palliative Medicine [phone] documented in this encounter Nursing Notes * Homa Roa, MED ASSIST - 03/12/2024 11:37 AM EDT Patient identifed by name and [...] it for you? ALREADY ACTIVE Filed Vitals: 03/12/24 1134 03/12/24 1135 BP: 88/58 110/69 Pulse: 71 Temp: 36.3 C (97.4 F) TempSrc: Tympanic SpO2: 98% Weight: 43.3 kg (95 lb 6.4 oz) Patient was instructed to not get up on the exam table/exam chair until directed and assisted by their provider; patient is to remain seated in the chair/ wheelchair/ exam table/ exam chair for fall prevention and safety reasons. Patient is aware to have assistance to step down off exam table/exam chair with personnel. Patient voiced full comprehension of instructions. Pt stated she had three falls within the last few months with no injuries. One she tripped over herflip flop as it broke going towards the basement. Last fall she reported was the february documented in this encounter Plan of Treatment Upcoming Encounters Date Type Department Care Team (Late st Contact Info) Description 03/25/2024 3:40 PM EDT Office Visit Family Practice [address], [place] [address] [place] [address] Mariela Molina DO 293 [place] [address] 03/26/2024 2:00 PM EDT Telemedicine Palliative Medicine [facility] [address] [facility] [address] [place] [address] Britt Mascorro MD [address] [place] [address] [place] [address] 03/28/2024 9:45 AM EDT Imaging Radiology [address] 132 [facility] [place] [address] 04/08/2024 9:45 AM EDT Pharmacy Pharmacy Hematology Oncology [facility] [place] [address] [place] [address] [facility] Hem[facility]Onc [address] [place] [address] Scheduled Procedures Name Priority Associated Diagnoses Date/Ti [...] pain- Primary Neoplasm related pain (acute) (chronic) Palliative care encounter Encounter for palliative care Anaplastic thyroid carcinoma (HCC) Malignant neoplasm of thyroid gland documented in this encounter Care Teams Strategic Communications Specialist Relationship Specialty Start Date End Date Mariela Molina DO [address] [place] [address] PCP - General Family Medicine 02/20/24 documented as of this encounter"
--- OUTSIDE RECORDS SUMMARY | 2024-04-18 05:25 | External Medical Summary ---
Author Name Unknown Address Unknown Organization [facility] [place] [address] [place] [address] Laboratory Report Ordering Provider Test Date Status GARRETT OLIVARES 02/19/2024 12:45:45 Final Observation Date Value Abnormality Reference (Units ) Status BUN 02/19/2024 12:45:45 23 Above high normal 6-20 (mg/dL) Final Creatinine 02/19/2024 12:45:45 1.0 0.5-1.0 (mg/dL) Final Glomerular filtration rate/1.73 sq M.predicted [Volume Rate/Area] in Serum, Plasma or Blood by Creatinine-based formula (CKD-EPI) 02/19/2024 12:45:45 62 >=60 (mL/min) Final eGFR is calculated based on the CKD-EPI 2020 equation. Sodium 02/19/2024 12:45:45 142 135-146 (m mol/L) Final Potassium 02/19/2024 12:45:45 3.8 3.5-5.1 (m mol/L) Final Cl 02/19/2024 12:45:45 103 98-107 (mm ol/L) Final CO2 02/19/2024 12:45:45 30 22-32 (mmo l/L) Final Anion gap 02/19/2024 12:45:45 9 7-15 (mmol /L) Final Glucose 02/19/2024 12:45:45 117 70-120 (mg /dL) Final Albumin 02/19/2024 12:45:45 3.2 Below low normal 3.8 -5.0 (g/dL) Final AST (Aspartate aminotransferase) 02/19/2024 12:45:45 36 Above high normal 10-35 (U/L) Final Alk Phos 02/19/2024 12:45:45 160 Above high normal 35 -130 (U/L) Final Bilirubin, Total 02/19/2024 12:45:45 0.4 <=1 .2 (mg/dL) Final Calcium 02/19/2024 12:45:45 8.4 8.4-10.2 ( mg/dL) Final Protein 02/19/2024 12:45:45 6.1 6.0-8.3 (g /dL) Final ALT (Alanine aminotransferase) 02/19/2024 12:45:45 26 10-35 (U/L) Vinay pimentel Performing Location [facility] [address] [facility] [address]
--- OUTSIDE RECORDS SUMMARY | 2024-04-18 05:25 | External Medical Summary | Summary of Care ---
Author Name Unknown Organization [facility] Address [address] [place] [address] Phone [phone] Care Team Providers Care Telegraph Inspector Name Role Phone Mariela Molina DO Primary Care Provider [phone] Reason for Visit * Reason Onset Date Comments Information 02/19/2024 Burned DVD for p atient & MD Santos CA CTR of CT neck + CAP from 02/19/24. Mailed one to patient residence & the other to tom ca ctr as requested by patient. Encounter Details Date Type Department Care Team (Late st Contact Info) Description 02/19/2024 Telephone Radiology [address] [place] [address] Lucretia Mckinney, RT (R) Information (Burned DVD for patient & MD A... Allergies Active Allergy Reactions Criticality Noted Date Comments Doxycycline Diarrhea,Nausea/vomiting 03/22/2021 Penicillins Nausea/vomiting 09/20/2018 documented as of this encounter (statuses as of 02/19/2024) Medications Medication Sig Dispensed Refills Start Date [...] mL 1 11/09/2023 Active Ergocalciferol 1.25 MG (31008 UT) Oral Capsule (Vitamin D2(Drisdol))Indic ations:Anaplastic thyroid [...] 2 Tablets in the evening. 02/13/2024 Active Hospital, Clinic, or Other Facility Administered Medication Ordered Dose Route Frequency Start Date End Date Status sodium chloride 0.9 % flush/inj 10 mL 10 mL IV PUSH ONCE 02/19/2024 02/20/2024 Active documented as of this encounter (statuses as of 02/19/2024) Active Problems Problem Noted Date Diagnosed Date [...] as of this encounter (statuses as of 02/19/2024) Resolved Problems Problem Noted Date Diagnosed Date Resolved Date Acute deep vein thrombosis ( DVT) of lower extremity 10/10/2022 09/25/2023 documented as of this encounter (statuses as of 02/19/2024) Immunizations Name Administration Dates Next Due COVID-19 mRNA, LNP-s, No Pre serve, 2-Dose Series ([employer]) 04/25/2021,10/12/2020,09/21/2020 COVID-19, MRNA-LNP, 23-24, P F, 50 [...] encounter Miscellaneous Notes * Telephone Encounter - Lucretia Mckinney RT (R) - 02/19/2024 3:50 PM EDT Burned DVD for patient & MD Tom [place] CTR of CT neck + CAP from 02/19/24. Mailed one to patient residence & the other to MD [facility] as requested by patient. documented in this encounter Plan of Treatment Upcoming Encounters Date Type Department Care Team (Late st Contact Info) Description 02/21/2024 3:40 PM EDT Office Visit Family Practice [address], [place] 293 [place] [phone] Mariela Molina DO 293 [place] [address] 02/27/2024 8:45 AM EDT Office Visit Hematology/Oncology [facility] [address] [place] [address] Romaine Rolon MD [address] [facility], [place] [address] 03/12/2024 2:30 PM EDT Office Visit Palliative Medicine [facility] 200 [place] [address] Britt Mascorro MD [address] [place] [address] 04/08/2024 9:45 AM EDT Pharmacy Pharmacy Hematology Oncology [facility] [address] [place] [address] [facility] Hem/Onc [address] [place] [address] Scheduled Procedures Name Priority Associated Diagnoses Date/Ti [...] history exists Depression Screening 08/24/2024 08/24/2023 TSH 11/27/2024 11/28/2023, 04/0 07/2023, 09/21/2023, Additional history exists DXA Scan 04/25/2026 04/25/2019, [...] filedocumented as of this encounter Care Teams Telegraph Inspector Relationship Specialty Start Date End Date Mariela Molina DO PCP - General Family Medicine 02/09/22 documented as of this encounter
--- OUTSIDE RECORDS SUMMARY | 2024-04-18 05:25 | External Medical Summary | Summary of Care ---
Author Name Unknown Organization [facility] Address [address] [place] [address] Phone [phone] Care Team Providers Care Bobbin Washer Name Role Phone Mariela Molina DO Primary Care Provider [phone] Reason for Visit * Reason Comments Outpatient Testing Encounter Details Date Type Department Care Team (Late st Contact Info) Description 02/19/2024 12:30 PM EDT Laboratory [facility], [facility] [phone] [facility] 132 [place] [address] Anaplastic thyroid carcinoma (HCC); Metastasis to bone (HCC); 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) Allergies Active Allergy Reactions Criticality Noted [...] mL 1 11/09/2023 Active Ergocalciferol 1.25 MG (44055 UT) Oral Capsule (Vitamin D2(Drisdol))Indic ations:Anaplastic thyroid [...] mRNA, LNP-s, No Pre serve, 2-Dose Series ([employer]) 04/25/2021,10/12/2020,09/21/2020 COVID-19, MRNA-LNP, 23-24, P F, 50 [...] Team (Late st Contact Info) Description 02/19/2024 2:30 PM EDT Imaging Radiology [address] 132 [facility] [place] [address] Anaplastic thyroid carcinoma (HCC); Metastasis to bone (HCC); 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) 02/21/2024 3:40 PM EDT Office Visit Family Practice [address] [place] [address] 293 [place] [address] Mariela Molina DO 293 [facility], [place] [address] 02/27/2024 8:45 AM EDT Office Visit Hematology/Oncology [facility] [address] [place] [phone] Romaine Rolon MD [address] [place] [address] 03/12/2024 2:30 PM EDT Office Visit Palliative Medicine [facility] [address] [place] [phone] Britt Mascorro MD [address] [place] [address] 04/08/2024 9:45 AM EDT Pharmacy Pharmacy Hematology Oncology [facility] [address] [place] [address] [facility], [facility] Hem/Onc [address] [place] [address] Pending Results Name Type Priority Associated Diagnoses Date /Time TSH WITH FREE T4 IF INDICATED Lab Routine Anaplastic thyroid carcinoma (HCC) 02/19/2024 12:45 PM EDT Scheduled Procedures Name Priority Associated [...] Date/Time Associated Diagnosis Comments DIFFERENTIAL, AUTOMATED STAT 02/19/2024 12:45 PM EDT Anaplastic thyroid carcinoma (HCC) COMPREHENSIVE METABOLIC PANEL STAT 02/19/2024 12:45 PM EDT Anaplastic thyroid carcinoma (HCC) CBC STAT 02/19/2024 12:45 PM EDT Anaplastic thyroid carcinoma (HCC) CBC STAT 02/19/2024 12:45 PM EDT Anaplastic thyroid carcinoma (HCC) documented in this encounter Results * DIFFERENTIAL, AUTOMATED (02/19/2024 12:45 PM EDT) WBC 4.96 4.00 - 10.80 K/uL 02/19/2024 1:04 PM EDT [facility]10 Neutrophils % 68.3 40.0 - 75.0 % 02/19/2024 1:04 PM EDT [facility] [place] [facility] 57-10 Lymphocytes % 22.0 18.0 - 42.0 % 02/19/2024 1:04 PM EDT [facility] [place] [facility] 57-10 Monocytes % 7.9 1.0 - 11.0 % 02/19/2024 1:04 PM EDT [facility] 57[facility]10 Eosinophils % 1.6 0.0 - 6.0 % 02/19/2024 1:04 PM EDT [facility] 57-10 Basophils % 0.2 0.0 - 2.0 % 02/19/2024 1:04 PM EDT [facility] [place] [facility] 57-10 Absolute Neutrophils 3.39 1.80 - 7.70 K/uL 02/19/2024 1:04 PM EDT [facility] 57-10 Absolute Lymphocytes 1.09 1.00 - 4.80 K/ul 02/19/2024 1:04 PM EDT [facility] [place] 57-10 Absolute Monocytes 0.39 0.00 - 1.10 K/uL 02/19/2024 1:04 PM EDT [facility] [place] 57-10 Absolute Eosinophils 0.08 0.00 - 0.70 K/uL 02/19/2024 1:04 PM EDT [facility] 57-10 Absolute Basophils 0.01 0.00 - 0.20 K/uL 02/19/2024 1:04 PM EDT [facility] 57-10 Blood Venous blood specimen / Unknown Venipuncture / Unknown 02/19/2024 12:45 PM EDT 02/19/2024 12:45 PM EDT Romaine Rolon MD LAB BLOOD ORDERABLES Performing Organization Address City/State/[facility] Co de Phone Number [facility] [address] [place] [address] * (ABNORMAL) CBC (02/19/2024 12:45 PM EDT) WBC 4.96 4.00 - 10.80 K/uL 02/19/2024 1:04 PM EDT [facility] 57-10 RBC 3.80 3.85 - 5.15 M/uL 02/19/2024 1:04 PM EDT [facility] [place] 57-10 HGB 10.4(L) 12.0 - 15.3 g/dL 02/19/2024 1:04 PM EDT [facility] [place] 57-10 HCT 34.1(L) 36.0 - 45.2 % 02/19/2024 1:04 PM EDT [facility] [place] 57-10 MCV 89.7 81.5 - 97.5 fL 02/19/2024 1:04 PM EDT [facility] [place] 57-10 MCH 27.4 27.0 - 34.0 pg 02/19/2024 1:04 PM EDT [facility] [place] 57-10 MCHC 30.5 32.0 - 36.0 g/dL 02/19/2024 1:04 PM EDT [facility] [place] 57-10 RDW 17.9 11.5 - 15.5 % 02/19/2024 1:04 PM EDT [facility] [place] 57-10 PLT 200 140 - 400 K/uL 02/19/2024 1:04 PM EDT [facility] 5710 MPV 10.0 6.6 - 11.1 fL 02/19/2024 1:04 PM EDT [facility]10 Blood Venous blood specimen / Unknown Venipuncture / Unknown 02/19/2024 12:45 PM EDT 02/19/2024 12:45 PM EDT Romaine Rolon MD LAB BLOOD ORDERABLES [facility] [address] * (ABNORMAL) COMPREHENSIVE METABOLIC PANEL (02/19/2024 12:45 PM EDT) BUN 23(H) 6 - 20 mg/dL 02/19/2024 1:29 PM EDT [facility] Creatinine 1.0 0.5 - 1.0 mg/dL 02/19/2024 1:29 PM EDT [facility] Estimated Glomerular Filtration Rate 62 >=60 mL/min 02/19/2024 1:29 PM EDT [facility] 5710 Comment:eGFR is calculated b ased on the CKD-EPI 2020 equation. Sodium 142 135 - 146 mmol/L 02/19/2024 1:29 PM EDT [facility] 57-10 Potassium 3.8 3.5 - 5.1 mmol/L 02/19/2024 1:29 PM EDT [facility] Chloride 103 98 - 107 mmol/L 02/19/2024 1:29 PM EDT [facility] CO2 30 22 - 32 mmol/L 02/19/2024 1:29 PM EDT [facility] [place] 57-10 Anion Gap 9 7 - 15 mmol/L 02/19/2024 1:29 PM EDT [facility] [place] 57-10 Glucose 117 70 - 120 mg/dL 02/19/2024 1:29 PM EDT [facility] [place] 57-10 Albumin 3.2(L) 3.8 - 5.0 g/dL 02/19/2024 1:29 PM EDT [facility] [place] 57-10 AST 36(H) 10 - 35 U/L 02/19/2024 1:29 PM EDT [facility] [place] 57-10 Alkaline Phosphatase 160(H) 35 - 130 U/L 02/19/2024 1:29 PM EDT [facility] [place] 57-10 Bilirubin, Total 0.4 <=1.2 mg/dL 02/19/2024 1:29 PM EDT [facility] [place] 57-10 Calcium 8.4 8.4 - 10.2 mg/dL 02/19/2024 1:29 PM EDT [facility] [place] 57-10 Protein 6.1 6.0 - 8.3 g/dL 02/19/2024 1:29 PM EDT [facility] [place] 57-10 ALT 26 10 - 35 U/L 02/19/2024 1:29 PM EDT [facility] [place] 57-10 Blood Venous blood specimen / Unknown Venipuncture / Unknown 02/19/2024 12:45 PM EDT 02/19/2024 12:45 PM EDT Romaine Rolon MD LAB BLOOD ORDERABLES [facility] [place] 57[facility]10 [address] [place] [address] documented in this encounter Visit Diagnoses Diagnosis Anaplastic thyroid carcinoma (HCC) Malignant neoplasm of thyroid gland Metastasis to bone (HCC) 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
--- OUTSIDE RECORDS SUMMARY | 2024-04-18 05:25 | External Medical Summary | Summary of Care ---
Author Name Unknown Organization [facility] Address [address] [place] [address] Phone [phone] Care Team Providers Care Casing Cleaner Name Role Phone Mariela Molina DO Primary Care Provider [phone] Reason for Visit * Reason Comments Follow Up Encounter Details Date Type Department Care Team (Late st Contact Info) Description 02/13/2024 2:30 PM EDT Office Visit Palliative Medicine [facility] [address] [place] [address] Britt Mascorro MD [address] [place] [address] Cancer related pain*; Thyroid cancer (HCC); Anaplastic thyroid carcinoma (HCC); Palliative care encounter Allergies Active Allergy Reactions Criticality Noted Date Comments Doxycycline Diarrhea,Nausea/vomiting 03/22/2021 Penicillins Nausea/vomiting 09/20/2018 documented as of this encounter (statuses as of 02/13/2024) Medications Medication Sig Dispensed Refills Start Date [...] mL 1 11/09/2023 Active Ergocalciferol 1.25 MG (15990 UT) Oral Capsule (Vitamin D2(Drisdol))Indic ations:Anaplastic thyroid [...] as of this encounter (statuses as of 02/13/2024) Active Problems Problem Noted Date Diagnosed Date [...] as of this encounter (statuses as of 02/13/2024) Resolved Problems Problem Noted Date Diagnosed Date Resolved Date Acute deep vein thrombosis ( DVT) of lower extremity 10/10/2022 09/25/2023 documented as of this encounter (statuses as of 02/13/2024) Immunizations Name Administration Dates Next Due COVID-19 mRNA, LNP-s, No Pre serve, 2-Dose Series ([email or web address]) 04/25/2021,10/12/2020,09/21/2020 COVID-19, MRNA-LNP, 23-24, P F, 50 [...] Sign Reading Time Taken Comments Blood Pressure 97/61 02/13/2024 2:35 PM EDT Pulse 90 02/13/2024 2:35 PM EDT Temperature 36.5 C (97.7 F) 02/13/2024 2:35 PM ED T Respiratory Rate 16 02/13/2024 2:35 PM EDT Oxygen Saturation 95% 02/13/2024 2:35 PM EDT Inhaled Oxygen Concentration - - Weight 44.5 kg (98 lb) 02/13/2024 2:35 PM EDT Height - - Body Mass Index 16.31 01/16/2024 10:54 AM EDT documented in this encounter Patient Instructions * Patient Instructions* Britt Mascorro MD - 02/13/2024 2:49 PM EDT Our Palliative Medicine Clinic is [...] needed. You can contact our office at [phone], which is our clinic in [place], or you can message us on [employer]. If you have an emergency outside of these hours, we recommend calling your primary care clinic, Oncology office, or going to the ER if you have a medical emergency. Follow up on Mar 12 at 230pm documented in this encounter Progress Notes * Britt Mascorro MD - 02/13/2024 2:30 PM EDT Palliative Medicine Outpatient Progress Note [facility] Palliative Medicine Outreach [address] [place] [address] Name: Delia Castillo Date: 02/13/2024 HPI: Delia Castillo is a 73 year old female with anaplastic thyroid carcinoma seen in follow-up for goals of care and symptom management. At last visit, we added Percocet 5-325 q4h to help with pain Took the Percocet sporadically, initially at night, when takes it at night, unsure if its helping at night. Tried to take it in the day,one time was traveling and slept the entire way home. Seems to diminish the pins/needles and numbs the R arm Palliative symptoms: Pain: Taking Lyrica 100mg TID Gets stabbing pain in evening between 6-12am Today started getting the same pain around lunchtime Nausea/Vomiting: no Appetite: poor sometimes but trying to eat / drink OK Constipation: regular Confusion: no Sleep issues: sleeping a lot with oxycodone Dyspnea: no Mood issues: no Falls: no Other: Dizzy at [employer] Examination: BP 97/61 (BP Site: Left Arm, BP Position: Sitting, BP Cuff Size: Pediatric) | Pulse 90 | Temp 36.5 C (97.7 F) (Tympanic) | Resp 16 | Wt 44.5 kg (98 lb) | LMP 07/12/2000 | SpO2 95% | BMI 16.31 kg/m | BSA 1.43 m Constitutional: no acute distress, chronically ill HENT: normocephalic, atraumatic. Eyes: anicteric, sclera and conjunctiva normal. Neck: no stridor Chest: normal respiratory effort Abdominal: nondistended Extremities: no edema Data Review: External notes reviewed: - Reviewed notes from Dr Rolon, Onc, on 02/11, plan to continue treatment - Reviewed notes from Belkis Arellano PA-C, Rad Onc on 02/06/24, they recommended getting second opinion at [facility] Lab / Imaging Results: TSH 11, elevated from before Information obtained from Sunday for collateral history Decision-making Capacity: Does Patient have Decisional Capacity? y Does Patient have a Healthcare Agent? Y, Advanced Care Planning (see ACP Tab): Deferred, will discuss at future visit ASSESSMENT/PLAN: Delia Castillo is a 73 year old female seen in follow-up for goals of care and pain and symptom management. 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 They are able to do video visits. Next visit with me. I spent a total of 41 minutes on the date of service in preparation, delivery, and documentation ofthe care provided to Delia Castillo excluding any time spent in the performance of separately billed services. Britt Mascorro MD [facility] Palliative Medicine [phone] documented in this encounter Nursing Notes * Homa Roa, MED ASSIST - 02/13/2024 2:35 PM EDT Patient identifed by name and birthdate [...] it for you? ALREADY ACTIVE Filed Vitals: 02/13/24 1435 BP: 97/61 Pulse: 90 Resp: 16 Temp: 36.5 C (97.7 F) TempSrc: Tympanic SpO2: 95% Weight: 44.5 kg (98 lb) Patient was instructed to not get up on the exam table/exam chair until directed and assisted by their provider; patient is to remain seated in the chair/ wheelchair/ exam table/ exam chair for fall prevention and safety reasons. Patient is aware to have assistance to step down off exam table/exam chair with personnel. Patient voiced full comprehension of instructions. documented in this encounter Plan of Treatment Upcoming Encounters Date Type Department Care Team (Late st Contact Info) Description 02/19/2024 12:30 PM EDT Laboratory [facility], [facility] [address] [facility] [address] [facility] [address] [facility] [address] 02/19/2024 12:45 PM EDT Imaging Radiology [address] 132 [facility] [place] [address] 02/19/2024 2:30 PM EDT Imaging Radiology [address] 132 [facility] [address] 02/21/2024 3:40 PM EDT Office Visit Family Practice [address] [facility] [place] [facility] [address] Mariela Molina DO [facility] [address] 02/27/2024 8:45 AM EDT Office Visit Hematology/Oncology [facility] [place] [address] [place] [address] Romaine Rolon MD [address] [place] [address] 03/12/2024 2:30 PM EDT Office Visit Palliative Medicine [facility] [address] [facility] [place] [address] Britt Mascorro MD [address] [place] [address] 04/08/2024 9:45 AM EDT Pharmacy Pharmacy Hematology Oncology [facility] [address] [place] [address] [facility], [facility] Hem/Onc [address] [place] [address] Scheduled Procedures Name Priority Associated Diagnoses Date/Ti [...] pain- Primary Neoplasm related pain (acute) (chronic) Thyroid cancer (HCC) Malignant neoplasm of thyroid gland Anaplastic thyroid carcinoma (HCC) Malignant neoplasm of thyroid gland Palliative care encounter Encounter for palliative care documented in this encounter Care Teams Casing Cleaner Relationship Specialty Start Date End Date Mariela Molina DO PCP - General Family Medicine 02/09/22 documented as of this encounter"
--- OUTSIDE RECORDS SUMMARY | 2024-04-18 05:25 | External Medical Summary | Summary of Care ---
Author Name Unknown Organization [facility] Address [address] [place] [address] Phone [phone] Care Team Providers Care Content Architect Name Role Phone Mariela Molina DO Primary Care Provider [phone] Reason for Visit * Reason Onset Date Comments Films 02/20/2024 Encounter Details Date Type Department Care Team (Late st Contact Info) Description 02/20/2024 Telephone Radiology Film File [address] [place] [address] Support, Imaging Radiology [address] [place] [address] Films Allergies Active Allergy Reactions [...] mL 1 11/09/2023 Active Ergocalciferol 1.25 MG (19731 UT) Oral Capsule (Vitamin D2(Drisdol))Indic ations:Anaplastic thyroid [...] mRNA, LNP-s, No Pre serve, 2-Dose Series ([employer]) 04/25/2021,10/12/2020,09/21/2020 COVID-19, MRNA-LNP, 23-24, P F, 50 [...] encounter Miscellaneous Notes * Telephone Encounter - Sri Campbell OSA - 02/20/2024 10:49 AM EDT [facility] requesting 2013 to present images be pushed to their system [place] Authorization to Release on file. Images pushed to [facility] Life Image account Job ID: [id number] Associated report(s) not needed. documented in this encounter Plan of Treatment Upcoming Encounters Date Type Department Care Team (Late st Contact Info) Description 02/21/2024 3:40 PM EDT Office Visit Family Practice 65 [facility] [address] [place] [address] Mariela Molina DO 293 [place] [address] 02/27/2024 8:45 AM EDT Office Visit Hematology/Oncology [place] [address] [address] [place] [phone] Romaine Rolon MD 200 [facility] [address] 03/12/2024 2:30 PM EDT Office Visit Palliative Medicine [facility] [place] 200 [facility] [phone] Britt Mascorro MD [address] [place] [address] 04/08/2024 9:45 AM EDT Pharmacy Pharmacy Hematology Oncology [facility] [address] [place] [address] [facility] Hem/Onc [address] [place] [address] Scheduled Procedures Name Priority Associated Diagnoses Date/Ti [...] filedocumented as of this encounter Care Teams Content Architect Relationship Specialty Start Date End Date Mariela Molina DO PCP - General Family Medicine 02/09/22 documented as of this encounter
--- OUTSIDE RECORDS SUMMARY | 2024-04-18 05:25 | External Medical Summary ---
Author Name Unknown Address Unknown Organization K01:[facility] [address] [place] [address] Laboratory Report Ordering Provider Test Date Status GARRETT OLIVARES 02/19/2024 12:45:45 Final Observation Date Value Abnormality Reference (Units ) Status T4, Free 02/19/2024 12:45:45 1.0 0.9-1.7 (n g/dL) Final Performing Location [facility] [address] [place] [address]
--- OUTSIDE RECORDS SUMMARY | 2024-04-18 05:25 | External Medical Summary | Summary of Care ---
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) Procedures CT NECK W CONTRAST Romaine Rolon MD [address] [place] [address] Referral ID Status Reason Start Date Expiration Date V isits Requested Visits Authorized [id number] Pending Review 02/26/2024 999 999 * Precert (Within 10 days (routine)) - Pending Review Specialty Diagnoses / Procedures Referred By Contac t Referred To Contact Radiology Diagnoses Anaplastic thyroid carcinoma (HCC) Metastasis to bone (HCC) 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) Procedures CT CHEST/ABDOMEN/PELVIS WITH IV CONTRAST WITH ORAL CONTRAST Romaine Rolon MD [address] [place] [address] Referral ID Status Reason Start Date Expiration Date V isits Requested Visits Authorized [id number] Pending Review 02/12/2024 999 999 Reason for Visit * Reason Comments Follow Up Encounter Details Date Type Department Care Team (Latest Contact Info) Description 02/12/2024 11:15 AM EDT Office Visit Hematology/Oncology [facility] [place] [address] [facility] [place] [phone] Romaine Rolon MD [address] [facility] [place], [place] [address] Anaplastic thyroid carcinoma (HCC)*; Metastasis to bone (HCC); 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 90 Tablet 3 02/11/2024 Active documented as of this encounter (statuses as of 02/12/2024) Active Problems Problem Noted Date Diagnosed Date [...] as of this encounter (statuses as of 02/12/2024) Resolved Problems Problem Noted Date Diagnosed Date Resolved Date Acute deep vein thrombosis ( DVT) of lower extremity 10/10/2022 09/25/2023 documented as of this encounter (statuses as of 02/12/2024) Immunizations Name Administration Dates Next Due COVID-19 mRNA, LNP-s, No Pre serve, 2-Dose Series (HDS INTERNATIONAL) 04/25/2021,10/12/2020,09/21/2020 COVID-19, MRNA-LNP, 23-24, P F, 50 [...] Never Smokeless Tobacco: Never Tobacco Cessation:Counseling Given: Not Answered Alcohol Use Standard Drinks/Week Comments Not Currently [...] Sign Reading Time Taken Comments Blood Pressure 102/67 02/12/2024 11:11 AM EDT Pulse 92 02/12/2024 11:11 AM EDT Temperature 37.3 C (99.2 F) 02/12/2024 11:11 AM E DT Respiratory Rate - - Oxygen Saturation 97% 02/12/2024 11:11 AM EDT Inhaled Oxygen Concentration - - Weight 44.6 kg (98 lb 4.8 oz) 02/12/2024 11:11 A M EDT Height - - Body Mass Index 16.36 01/16/2024 10:54 AM EDT documented in this encounter Progress Notes * Romaine Rolon MD - 02/12/2024 11:15 AM EDT Images from the original note were not included. DELIA SIFUENTES MR # [id number] :1950 73-year-old female, Date of consultation:10/24/2022 DIAGNOSIS: History of papillary thyroid carcinoma diagnosed initially in 2009, recurrent disease in 2008, another recurrent disease in 2012 and 2013. She had a total thyroidectomy in the past. 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 NGS checkup showed BRAF positive, low TMB. No other actionable mutation noted. - hypercalcemia in March 2020, received 1 dose of Xgeva at that time. 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 She had radiation treatment to that area, completed on 11/23/2023. She has been evaluated and followed at [facility]. Dr. Musa Oneal ( civil engineering specialist) Dr. Janet Hernandez ( medical oncologist). CURRENT TREATMENT: - On dabrafenib and trametinib combination from [facility]. - received 1 dose of Keytruda on 12/26/2022, could not tolerate treatment well, she had increasing tiredness and some memory changes transiently but importantly about a week later she had significantly abnormal liver function test and started her on prednisone. Currently she is off the prednisone. Currently she is on dabrafenib at 150 mg twice a day and trametinib 2 mg, 1 tablet once a day She is on Eliquis for right upper extremity DVT. She completed palliative radiation treatment to the right neck mass in last week of 10/2023 DIAGNOSTIC WORKUP: Diagnosed a case of thyroid cancer, she had hemithyroidectomy by Dr. Hernandez in 1999. In 2008, she had a recurrence of the thyroid cancer, she had total thyroidectomy by Dr. Florence, final pathology showed papillary thyroid cancer. In 2012, she had another thyroid surgery at [facility] followed by radioactive iodine treatment over there. In May 2014 she would a biopsy which showed recurrence of the thyroid cancer but then she had additional surgery at [facility], as per the patient It did not show any residual thyroid cancer and the she has remained under observation. In February 2021, she started having slightly enlarged lymph nodes in the right side of the neck which progressively increased in size over the 1 year duration -her thyroglobulin level has remained quite low. ultimately she had a biopsy From the right neck mass, level 3 in July 2022 which showed poorly differentiated carcinoma with focal spindle cell features. she had another core needle biopsy as follows: Right cervical lymph node, level 3 --> anaplastic ( undifferentiated) thyroid carcinoma, (09/25/2022). - positive for BRAF V600E IHC, focally positive for AE1/3 and PAX-8, and negative for TTF-1 and Thyroglobulin. - No fusion transcripts were detected - TMB --> 4.41 -Thyroglobulin level --> 0.5 (08/18/2022) She has been followed at [place], Because of BRAF positive, that planning to start her on dabrafenib and trametinib combination. OTHER IMPORTANT HISTORY: - Right upper extremity DVT, she is on Eliquis. 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 INTERVAL HISTORY: She has come the clinic for the follow-up, she came to clinic accompanied by her in the office. She has chronic hoarseness of voice since 2013 from the previous surgery. Lately noticed to have a findings suggestive of right Yulisa syndrome Recently in last week of October 2023 she completed palliative radiation treatment of the enlarging right soft tissue mass. It is slightly smaller. She still complains of increasing sharp shooting pain intermittently in the right upper extremity, has weakness of the right upper extremity, previously noted cough has improved. Currently she is on dabrafenib and trametinib, tolerated well. She could not tolerate Neurontin, now on Lyrica could not tolerate higher dose, currently on Lyricaat 100 mg 3 times a day, She is feeling weak and tired, fair appetite, weight loss noted, current weight is around 98 lb, Noleg edema, some swelling of the right upper extremity, She is on Eliquis, no new bleeding complications no new thrombotic complications Dryness of the mouth noted. Some mild dry coughing noted lately. No new abdominal symptoms, no diarrhea, no constipation, blood pressure has remained slightly lowerside. Past Medical History: Diagnosis Date Benign neoplasm of colon 03/10/2009 repeat 3 years Hypoparathyroidism (HCC) Hypothyroid Iron deficiency anemia Recurrent thyroid cancer (HCC) papillary Past Surgical History: Procedure Laterality Date COLONOSCOPY W/ BIOPSY (RECTUM) 03/10/09 DONE COLONOSCOPY W/ LESION REMOVAL, SNARE 03/10/09 DONE adenomatous polyp--repeat 3 years COLONOSCOPY, DIAGNOSTIC (RECTUM) 01/10/2013 COLONOSCOPY FLEXIBLE PROXIMAL DIAGNOSTIC performed by Madisyn Montiel MD at [facility]COPY [facility] COLONOSCOPY, DIAGNOSTIC (RECTUM) 09/24/2018 rectal ulcer, repeat 5 yrs/COLONOSCOPY FLEXIBLE PROXIMAL DIAGNOSTIC performed by Madisyn Montiel MD at ENDOSCOPY [facility] MISCELLANEOUS ORDER mole removed from leg 1989 MISCELLANEOUS ORDER nevus on wrist removed 1990 REMOVAL OF THYROID LESION UNLISTED PROCEDURE, SMALL INTESTINE 03/10/09 DONE Current Outpatient Medications Medication Sig Dispense Refill Multivitamin Adult Oral Tablet Take 1 Tablet by mouth in the morning. Khurram Woodard multivitamin . Calcitriol 0.25 MCG Oral Capsule (Rocaltrol) TAKE ONE CAPSULE BY MOUTH TWICE A DAY 180 Capsule 3 Eliquis 5 MG Oral Tablet TAKE ONE TABLET BY MOUTH TWICE A DAY 180 Tablet 3 Levothyroxine Sodium 100 MCG Oral Tablet (Levoxyl) Take 1 tablet (100 mcg total) by mouth once daily. 30 Tablet 11 Calcium Citrate-Vitamin D3 315-6.25 MG-MCG Oral Tablet (Calcium Citrate + D3 Maximum) Take by mouth2 times a day. First-Mouthwash BLM Mouth/Throat Suspension Swish and swallow 10 mL every 4 hours as needed. Magic Mouthwash (Vdyrvgtff-Wmrgoqqh-Tmtahouo) oral solution Swish and spit 15 mL in the morning and15 mL before bedtime. 200 mL 1 Ergocalciferol 1.25 MG (91684 UT) Oral Capsule (Vitamin D2(Drisdol)) Take 1 [...] on an empty stomach. 30 Tablet 5 Dabrafenib Mesylate 75 MG Oral Capsule (Tafinlar) Take 2 Capsules by mouth in the morning and 2 Capsules before bedtime. 120 Capsule 6 Pregabalin 100 MG Oral Capsule (Lyrica) Take 1 Capsule by mouth in the morning and 1 Capsule at noon and 1 Capsule before bedtime. 90 Capsule 0 No current facility-administered medications for this visit. Family History Problem Relation Name Age of Onset Heart attack Father 86 Prostate cancer Brother Other (liposarcoma) Brother Cancer Uncle (Unspecified) Pancreatic Heart Disorder Uncle (Unspecified) Maternal uncle Thyroid cancer Son Social History Socioeconomic History Marital status: Spouse name: Not on file Number of children: Not on file Years of education: Not on file Highest education level: Not on file Occupational History Not on file Tobacco Use Smoking status: Never Passive exposure: Never Smokeless tobacco: Never Vaping Use Vaping status: Never Used Substance and Sexual Activity Alcohol use: Not Currently Comment: Occasionally holidays Drug use: No Sexual activity: Not on file Other Topics Concern Not on file Social History Narrative Not on file Social Determinants of Health Financial Resource Strain: Low Risk (08/24/2023) Financial Resource Strain Do you have any trouble paying for your medications, or do you think you might in the future? (Adult - for ages 18 years and over): No Does your family have trouble paying for medicine? (Household - for ages 0-17 years): Not on file Food Insecurity: No Food Insecurity (08/24/2023) Food Insecurity Do you need food for this week? (Adult - for ages 18 years and over): No Are you able to get enough food for your family? (Household - for ages 0-17 years): Not on file Does your family need food this week? (Household - for ages 0-17 years): Not on file Do you always have enough food for your family? (Household - for ages 0-17 years): Not on file Transportation Needs: No Transportation Needs (08/24/2023) Transportation Needs Do you have trouble getting a ride to medical visits or work? (Adult - for ages 18 years and over):Never True Does your family have a hard time getting a ride to doctors visits? (Household - for ages 0-17 years): Not on file Has lack of transportation kept you from medical appointments, meetings, work, or from getting things needed for daily living? Check all that apply. (Adult - for ages 18 years and over): Not on file Do you (or your family) have trouble finding or paying for a ride (transportation)? (Household - for ages 0-17 years): Not on file Social Connections: Socially Integrated (08/24/2023) Social Connections How often do you feel lonely or isolated from those around you? (Adult - for ages 18 years and over): Never Housing Stability: Low Risk (11/16/2023) [facility] Housing Stability Unstable Housing in the Last Year: Not on file On Exam: LMP 07/12/2000 BP 102/67 (BP Site: Left Arm, BP Position: Sitting, BP Cuff Size: Regular) | Pulse 92 | Temp 37.3 C (99.2 F) (Tympanic) | Wt 44.6 kg (98 lb 4.8 oz) | LMP 07/12/2000 | SpO2 97% | BMI 16.36 kg/m | BSA 1.43 m Constitutional: Patient is alert, cooperative and oriented x 3. Well built woman, Patient is in no acute distress. HEENT: No icterus, no pallor, Throat and pharynx normal. Sinuses are non-tender. Neck: Ill-defined soft tissue mass palpable in the right neck measuring about 34-5 cm, Lungs: Clear to auscultation. Bilateral symmetric air entry. No wheezing or rhonchi. Cardiovascular: Normal heart sounds, no murmurs.Regular rate and rhythm. Abdomen: soft, nontender, no hepatomegaly, no splenomegaly. Bowel sounds are normal. Neurological: Findings suggestive of right Yulisa syndrome Extremities: No finger clubbing, No cyanosis. No leg edema. Skin:: No skin rash. SPINE: No spinal or paraspinal tenderness. Evidence of right-sided Yulisa syndrome noted. Right upper extremity edema noted. LABS: Blood workup done on 10/06/2022: -WBC 4700, H&H of 13.5/42.9, Platelet count [id number] -BUN/Creat: 17/0.8, normal liver function test Component Latest Ref Rng 12/21/2022 01/03/2023 01/08/2023 01/15/2023 Albumin 3.8 - 5.0 g/dL 4.0 3.4 (L) 3.4 (L) 3.7 (L) AST 10 - 35 U/L 35 275 (H) 58 (H) 20 Alkaline Phosphatase 35 - 130 U/L 112 649 (H) 393 (H) 246 (H) Bilirubin, Total <=1.2 mg/dL 0.7 1.2 0.9 0.9 Protein 6.0 - 8.3 g/dL 6.9 6.1 6.5 6.7 ALT 10 - 35 U/L 29 233 (H) 125 (H) 43 (H) Bilirubin, Direct 0.0 - 0.3 mg/dL 0.4 (H) 0.3 -she had a normal LFT before she was started on Keytruda, received Keytruda on 12/26/2022 She was started on prednisone 60 mg per day on 01/03/2023. Blood workup done on 03/05/2023: -WBC 3200, H&H of 10.2/32.7 Platelet count 177328 -BUN/Creat: 19/1.1, Calcium 8.9 -AST 34, ALT 29, alkaline phosphatase 186, bilirubin level 0.6. -TSH 45.2, free T4 -->1.2 Blood workup done on 06/18/2023: - WBC 4300 H&H of 10.8/35.3, platelet count of 194,000 - BUN/Creat: 24/0.8, calcium 8.1, normal LFT - TSH --> 7.6, free T4 --> 1.5. Blood workup done on 09/21/2023: -WBC 5000, H&H of 10.5/35.5, Platelet count of [id number]. Blood workup done on 11/28/2023: -WBC 7200, H&H of 10.4/34.4, Platelet count of 889680. -BUN/Creat: 20/0.7, Calcium 8.0, normal LFT. -TSH --> 11.1, free T4 --> 1.2. IMAGING: Right upper extremity Doppler evaluation done on 10/03/2022 at [facility] showed DVT involving the right subclavian and axillary vein. Brain MRI (10/04/2022)--> 1. No acute intracranial abnormality is identified. 2. Specifically, there is no evidence of intracranial metastatic disease. 3. Question a 13 mm enhancing soft tissue lesion within or adjacent to the left parotid gland. Ultrasound correlation is recommended. CT chest (10/03/2022) -no evidence of pulmonary embolism. CT neck angiogram (10/03/2022) 1. Questionable recurrent neoplasm involving the right paratracheal region versus postoperative inflammatory changes. If indicated, these findings may be further assessed with MRI of the neck with intravenous contrast or PET scan evaluation in the nonacute setting. 2. Status post right jugular vein resection otherwise normal CT angiogram of the neck arteries with no severe stenosis, occlusion or dissection noted. PET-CT scan (10/06/2022). 1. An intensely avid right supraclavicular nodular likely malignant soft tissue mass, measuring approximately 2.0 x 1.4 x 4.0 cm, which is likely infiltrating to the nearby visceral tissues. For precise dimensions please refer to same day contrast-enhanced CT.. 2. Intense FDG avid subcarinal lymph node is suspicious for metastases, although infectious inflammatory involvement cannot be totally ruled out. 3. Intensely FDG avid right adrenal gland with ill-defined thickening, inconclusive; differential includes adenoma versus metastases. Consider further assessment with adrenal CT protocol or MRI if indicated. 4. Right vocal cord paralysis with associated compressive injury increased FDG activity at the leftvocalis muscles. CT scan of the head/brain, neck (10/06/2022). Mass lesion with infiltrative margins at the right thyroidectomy bed measuring up to 3.5cm compatible with biopsy proven anaplastic thyroid carcinoma. The lesion encases the right common carotid artery and likely partially encases the V1 segment of the right vertebral artery. Venous encasement/thrombosis of the lower right jugular vein and confluence with subclavian vein. Possible non-occlusive thrombus extending into the right brachiocephalic vein. The superior vena cavahowever remains patent. Consider upper extremity ultrasound for further evaluation of venous thrombosis. Medial margins of the anaplastic thyroid carcinoma abut the right lateral wall of the trachea and the right longus coli muscle. Prominent right level 3/4 lymph node just superior to the mass may reflect a metastatic node. No evidence of intracranial metastatic disease on CT. CT scan of the neck (03/08/2023) Total thyroidectomy. Presumed hyperattenuating residual thyroid tissue in the right thyroidectomy bed. Infiltrative extranodal soft tissue in the right neck encasing the common carotid artery, right vertebral artery, right subclavian artery, right internal thoracic artery, and occluding the right internal jugular and right subclavian veins by compression, corresponding to the recurrent thyroid carcinoma. Filling defect in the right axillary vein extending off the field of view, non- opacified blood versus intraluminal thrombus. Bilateral cervical paraspinal muscle nonspecific myositis. CT scan of chest, abdomen pelvis (03/08/2023). Chest: 1. A small density in the right thyroid bed, measuring 1.1 cm, not adequately evaluated with CT. Consider a follow up ultrasound for further evaluation. 2. A small dense/enhancing nodule in the anterior chest wall anterior to the manubrium measuring 0.8 cm, indeterminate. Consider a follow up ultrasound for further evaluation. 3. An ill-defined soft tissue encasing the right common carotid artery, incompletely seen on this exam. No contrast in the right jugular vein. Instead, a heterogeneous soft-tissue in the expected location of the right jugular vein noted which may represent recurrent disease. 4. No enlarged mediastinal lymph nodes. 5. Multiple small pulmonary nodules measuring up to 0.5 cm, indeterminate for metastases. A follow up chest CT in 3 months is suggested for re-evaluation. Abdomen/pelvis: 1. Two small enhancing liver lesions as measured above, not definitively characterized on this exam. A follow-up MRI is suggested for further evaluation. 2. Two small cystic lesions in the pancreas measuring up to 1.2 cm, may represent side branch IPMNs, otherwise not adequately evaluated on this exam. Attention on the follow-up MRI with MRCP suggested. CT chest, abdomen and pelvis on 06/12/2023: -at least 3 enlarging cystic lesions in the liver which are suspicious, the largest one measuring 1.6 cm. (previously 9 mm). Stable left lobe of the liver lesion measuring 1.1 cm, right lobe of the liver measuring 1.[address] neck (06/12/2023) 1. 42 x 39 x 68 ill-defined right inferior neck/supraclavicular soft tissue lesion, increased in size compared with 02/2023 (36 x 34 x 59 mm). Right common carotid, right subclavian, and right vertebral artery encasement, unchanged. Right internal jugular/right subclavian vein invasion/occlusion, stable. Lesion abuts right longus colli muscle, unchanged, and concerning for perivertebral space invasion. 2. Heterogeneous paraspinal muscle enhancement noted on 02/[address] is not present on current study. PET/CT may be performed for further evaluation. CT scan of the chest, abdomen pelvis on 09/11/2023: -no evidence of disease noted CT scan of the neck on 09/11/2023: -further enlargement of the previously noted right neck mass measuring 3.4 x 2.9 x 3 cm. MRI of the cervical spine (10/04/2023). 1. A focal enhancing marrow replacing lesion involving the right posterior aspect of the body, pedicle and articular facet of the C7 vertebra with associated focal soft tissue swelling extending along the right C5-C6, C6-C7 and C7-T1 neural foramina and nerve roots, likely representing metastatic disease. 2. Interval further enlargement of previously seen large necrotic lymph yoan mass in the right lower neck, likely representing metastatic disease. These 2 masses appear to be contiguous with each other. 3. Multilevel degenerative changes in the cervical spine as described above, more pronounced at C4-C5 level with resultant [id number] bilateral neural foraminal stenosis at this level. No evidence of significant spinal canal stenosis. Echocardiogram (01/04/2023) -LV ejection fraction 50%. ASSESSMENT AND PLAN: 72-year-old female, A case of papillary thyroid carcinoma initially diagnosed in 2009, had several recurrent disease noted in 2008, 2012 2013, had total thyroidectomy, radioactive iodine x1 in 2012. 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 Her thyroglobulin level has remained quite low. She is on oral thyroid hormone supplementation. NGS checkup showed BRAF positive, TMB is on the lower side around 4.4. Right cervical masses causing compressive effect on the vein, resulted in DVT in right upper extremity in 09/2022, she is on Eliquis for that. 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 She has dry cough which could be related to the anaplastic thyroid carcinoma involving the trachealwall. She was then started on dabrafenib trametinib, previously noted cough has improved. Both medications managed by pharmacies from [place]. Recently we added Keytruda, received 1st infusion on 12/26/2022 but she had increasing tiredness, some memory lapse, some diarrhea, constipation on the same day and on the following day. About a week later, noticed to have significantly abnormal liver function test, started her on oralprednisone 60 mg per day, decided discontinue Keytruda because of liver toxicity. Currently she is off the prednisone therapy Currently she is on dabrafenib and trametinib at full dose, no significant side effects lately, no increasing fever. Recently she would increasing pain, neuropathy symptoms in the right upper extremity with weakness of the right upper extremity, enlarging soft tissue mass in the neck, she received radiation treatment which was completed in last week of October 2023. Could not tolerate Neurontin, she is on Lyrica but higher dose of Lyrica is causing increasing dreams during the nighttime. Currently on Lyrica at 100 mg 3 times a day She also follows with Palliative Care , they have started her on Percocet, advised to take Percocetevery 4 to 6 hourly during the daytime and see how she does. She says that they are planning for visit at [facility], will see what they suggest, She will continue dabrafenib trametinib. Overall treatment goal being palliative and not curative She will continue Eliquis for right upper extremity DVT. I am planning for follow-up CT scan of chest, abdomen pelvis as well as CT neck in about 2 weeks and then will see her in the clinic. She already has an appointment with me on 02/27/2024. Dr. Romaine Rolon Hem/Onc (This note was completed using the dictation program Fluency Direct. As such, there may be misspellings word substitutions, or other variations that should not change the essence of the clinical content of this encounter note. If there is need for further clarification, please direct questions to the provider listed above.) documented in this encounter Nursing Notes * Prudencio Agustin, FANTASMA ASSIST - 02/12/2024 11:12 AM EDT Patient identified by name and date of . Do you have any concerns about pain management for today's visit? No Living Will or Advance Directive for Health Care as noted on problem list. My [facility] is a way you can talk to your provider online through e-mail. Would you like to sign up? I can activate it for you? ALREADY ACTIVE BP 102/67 (BP Site: Left Arm, BP Position: Sitting, BP Cuff Size: Regular) | Pulse 92 | Temp 37.3 C (99.2 F) (Tympanic) | Wt 44.6 kg (98 lb 4.8 oz) | LMP 07/12/2000 | SpO2 97% | BMI 16.36 kg/m | BSA 1.43 m Patient was instructed to not get up [...] 2:30 PM EDT Office Visit Palliative Medicine [facility] 200 [place] [address] Britt Mascorro MD [address] [place] [address] [place] [address] 02/19/2024 12:30 PM EDT Laboratory Laboratory, [facility] 132 [facility] [place] [phone] [place] [address] 02/19/2024 12:45 PM EDT Imaging Radiology [address] 132 [facility] [address] 02/19/2024 2:30 PM EDT Imaging Radiology [address] 132 [facility] [place] [address] 02/21/2024 3:40 PM EDT Office Visit Family Practice [address], [place] 293 [place] [address] Mariela Molina DO 293 [facility], [place] [address] 02/27/2024 8:45 AM EDT Office Visit Hematology/Oncology [facility] [address] [facility] [address] Romaine Rolon MD 200 [place] [address] 04/08/2024 9:45 AM EDT Pharmacy Pharmacy Hematology Oncology [facility] [address] [place] [address] [facility] [address] [place] [address] Scheduled Orders Name Type Priority Associated Diagnoses Orde r Schedule CT CHEST/ABDOMEN/PELVIS WITH IV CONTRAST WITH ORAL CONTRAST Medical Imaging Routine Anaplastic thyroid carcinoma (HCC) Metastasis to bone (HCC) 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) Expected: 02/12/2024, Expires: 02/11/2025 CT NECK W CONTRAST Medical Imaging Routine Anaplastic thyroid carcinoma (HCC) Metastasis to bone (HCC) 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) Expected: 02/26/2024, Expires: 03/14/2025 CBC WITH WBC DIFFERENTIAL Lab STAT Anaplastic thyroid carcinoma (HCC) Metastasis to bone (HCC) 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) Expected: 02/26/2024, Expires: 02/11/2025 COMPREHENSIVE METABOLIC PANEL Lab STAT Anaplastic thyroid carcinoma (HCC) Metastasis to bone (HCC) 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) Expected: 02/26/2024, Expires: 02/11/2025 Scheduled Procedures Name Priority Associated Diagnoses Date/Ti [...] (HCC)- Primary Malignant neoplasm of thyroid gland Metastasis to bone (HCC) Secondary malignant 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
--- OUTSIDE RECORDS SUMMARY | 2024-04-18 05:25 | External Medical Summary | Summary of Care ---
Author Name Unknown Organization [facility] Address [address] [place] [address] Phone [phone] Care Team Providers Care Internal Auditor Name Role Phone Mariela Molina DO Primary Care Provider [phone] Reason for Visit * Reason Onset Date Comments Palliative Care Follow-up 02/11/2024 Encounter Details Date Type Department Care Team (Late st Contact Info) Description 02/11/2024 Telephone Palliative Medicine, [facility] 400 [facility] 5th [place] [address] Britt Mascorro MD 400 [place] [address] Palliative Care Follow-up Allergies Active [...] mL 1 11/09/2023 Active Ergocalciferol 1.25 MG (60172 UT) Oral Capsule (Vitamin D2(Drisdol))Indic ations:Anaplastic thyroid [...] Capsule before bedtime. 90 Capsule 02/04/2024 Active documented as of this encounter (statuses [...] mRNA, LNP-s, No Pre serve, 2-Dose Series ([employer]) 04/25/2021,10/12/2020,09/21/2020 COVID-19, MRNA-LNP, 23-24, P F, 50 [...] Telephone Encounter - Shanelle Isaac LPN - 02/12/2024 12:13 PM EDT Call to patient again No answer Unable to leave message * Telephone Encounter - Shanelle Isaac LPN - 02/11/2024 11:42 AM EDT Call center attempted to transfer patient to [place], but patient hung up during transfer process Attempt to call patient back No answer * Telephone Encounter - Shanelle Isaac LPN - 02/11/2024 10:57 AM EDT Patient scheduled for IN PERSON visit at [facility] on Sunday Patient requested a call a few days in advance to see if in person was still OK, or if would need to change to video Call to patient answered Patient not available at this time She will have patient return my call documented in this encounter Plan of Treatment Upcoming Encounters Date Type Department Care Team (Late st Contact Info) Description 02/13/2024 2:30 PM EDT Office Visit Palliative Medicine [facility] 200 [facility] [address] Britt Mascorro MD [address] [place] [address] [place] [address] 02/19/2024 12:30 PM EDT Laboratory Laboratory, [facility] 132 [place] [address] [facility] 132 [facility] [address] 02/19/2024 12:45 PM EDT Imaging Radiology [address] 132 [facility] [address] 02/19/2024 2:30 PM EDT Imaging Radiology [address] 132 [facility] [address] 02/21/2024 3:40 PM EDT Office Visit Family Practice [address] [place] [address] 293 [place] [address] Mariela Molina DO 293 [place] [address] 02/27/2024 8:45 AM EDT Office Visit Hematology/Oncology [facility] 200 [place] [address] Romaine Rolon MD 200 [place] [address] 04/08/2024 9:45 AM EDT Pharmacy Pharmacy Hematology Oncology [facility] [address] [place] [address] [facility] Hem/Onc [address] [place] [address] Scheduled Procedures Name Priority Associated Diagnoses Date/Ti [...] filedocumented as of this encounter Care Teams Internal Auditor Relationship Specialty Start Date End Date Mariela Molina DO PCP - General Family Medicine 02/09/22 documented as of this encounter
--- OUTSIDE RECORDS SUMMARY | 2024-04-18 05:25 | External Medical Summary | Summary of Care ---
Author Name Unknown Organization [facility] Address [address] [place] [address] Phone [phone] Care Team Providers Care Ring Striker Name Role Phone Mariela Molina DO Primary Care Provider [phone] Encounter Details Date Type Department Care Team (Late st Contact Info) Description 02/20/2024 Telephone Hematology/Oncology [facility] [place] 200 [facility] [place] [address] Romaine Rolon MD 200 [facility] [address] Allergies Active Allergy Reactions Criticality Noted Date [...] mL 1 11/09/2023 Active Ergocalciferol 1.25 MG (22798 UT) Oral Capsule (Vitamin D2(Drisdol))Indic ations:Anaplastic thyroid [...] mRNA, LNP-s, No Pre serve, 2-Dose Series ([employer]) 04/25/2021,10/12/2020,09/21/2020 COVID-19, MRNA-LNP, 23-24, P F, 50 [...] date: Authorizing: Romaine Rolon MD in [facility]EM[facility]ONC [facility] Referral: [id number] (Authorized) Priority: Within 10 days (routine) Diagnosis: Anaplastic thyroid carcinoma (HCC) [C73] Metastasis to bone (HCC) [C79.51] 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] Called and left message to [facility] for rad onc Will try again later documented in this encounter Plan of Treatment Upcoming Encounters Date Type Department Care Team (Late st Contact Info) Description 02/21/2024 3:40 PM EDT Office Visit Family Practice 65 [facility] [place] 293 [facility] [address] Mariela Molina DO 293 [facility] [address] 02/27/2024 8:45 AM EDT Office Visit Hematology/Oncology [place] [address] [address] [place] [address] Romaine Rolon MD 200 [facility] [address] 03/12/2024 2:30 PM EDT Office Visit Palliative Medicine [facility] 200 [place] [address] Britt Mascorro MD 400 [place] [address] 04/08/2024 9:45 AM EDT Pharmacy Pharmacy Hematology Oncology [facility] [address] [place] [address] [facility], [facility] Hem/Onc [address] [place] [address] Scheduled Procedures Name Priority Associated Diagnoses Date/Ti [...] filedocumented as of this encounter Care Teams Ring Striker Relationship Specialty Start Date End Date Mariela Molina DO PCP - General Family Medicine 02/09/22 documented as of this encounter
--- OUTSIDE RECORDS SUMMARY | 2024-04-18 05:25 | External Medical Summary | Summary of Care ---
Author Name Unknown Organization [facility] Address [address] [place] [address] Phone [phone] Care Team Providers Care Worship Leader Name Role Phone Mariela Molina DO Primary Care Provider [phone] Reason for Visit * Reason Comments Outpatient Testing Encounter Details Date Type Department Care Team (Late st Contact Info) Description 02/19/2024 12:30 PM EDT Laboratory Laboratory, [facility] 132 [facility] [phone] [facility] 132 [facility] [place] [address] Anaplastic thyroid carcinoma (HCC); Metastasis to bone [...] mL 1 11/09/2023 Active Ergocalciferol 1.25 MG (85545 UT) Oral Capsule (Vitamin D2(Drisdol))Indic ations:Anaplastic thyroid [...] mRNA, LNP-s, No Pre serve, 2-Dose Series ([employer]) 04/25/2021,10/12/2020,09/21/2020 COVID-19, MRNA-LNP, 23-24, P F, 50 [...] Description 02/19/2024 2:30 PM EDT Imaging Radiology [address] 132 [facility] [place] [address] Anaplastic thyroid carcinoma (HCC); Metastasis to bone (HCC); 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) 02/21/2024 3:40 PM EDT Office Visit Family Practice [address] [place] [address] 293 [place] [address] Mariela Molina DO 293 [facility], [place] [address] 02/27/2024 8:45 AM EDT Office Visit Hematology/Oncology [facility] [address] [place] [phone] Romaine Rolon MD [address] [place] [address] 03/12/2024 2:30 PM EDT Office Visit Palliative Medicine [facility] [address] [place] [phone] Britt Mascorro MD [address] [place] [address] 04/08/2024 9:45 AM EDT Pharmacy Pharmacy Hematology Oncology [facility] [address] [place] [address] Gm, [facility] Hem/Onc [address] [place] [address] Pending Results Name Type Priority Associated Diagnoses Date /Time CBC WITH WBC DIFFERENTIAL Lab STAT Anaplastic thyroid carcinoma (HCC) 02/19/2024 12:45 PM EDT COMPREHENSIVE METABOLIC PANEL Lab STAT Anaplastic thyroid carcinoma (HCC) 02/19/2024 12:45 PM EDT TSH WITH FREE T4 IF INDICATED Lab Routine Anaplastic thyroid carcinoma (HCC) 02/19/2024 12:45 PM EDT CBC Lab STAT Anaplastic thyroid carcinoma (HCC) 02/19/2024 12:45 PM EDT DIFFERENTIAL, AUTOMATED Lab STAT Anaplastic thyroid carcinoma (HCC) 02/19/2024 12:45 PM [...] neck documented in this encounter Care Teams Worship Leader Relationship Specialty Start Date End Date Mariela Molina DO PCP - General Family Medicine 02/09/22 documented as of this encounter
--- OUTSIDE RECORDS SUMMARY | 2024-04-18 05:25 | External Medical Summary ---
Author Name Unknown Address Unknown Organization [id number]:[facility] [address] [place] [address] Laboratory Report Ordering Provider Test Date Status GARRETT OLIVARES 02/19/2024 12:45:45 Final Observation Date Value Abnormality Reference (Units ) Status SYNC LEUKOCYTES IN BLOOD BY AUTOMATED COUNT 02/19/2024 12:45:45 4.96 4.00-10.80 (K/uL) Final Segs 02/19/2024 12:45:45 68.3 40.0-75.0 (%) Final Lymphs % 02/19/2024 12:45:45 22.0 18.0-42.0 (%) Final Monos 02/19/2024 12:45:45 7.9 1.0-11.0 (%) Final Eosinophils 02/19/2024 12:45:45 1.6 0.0-6.0 (%) Final Basos 02/19/2024 12:45:45 0.2 0.0-2.0 (%) Final Absolute Segs 02/19/2024 12:45:45 3.39 1.80-7.70 (K/uL) Final Lymphs, absolute 02/19/2024 12:45:45 1.09 1.00-4.80 (K/ul) Final Monos, Abs 02/19/2024 12:45:45 0.39 0.00-1.10 (K/uL) Final Eos, Abs 02/19/2024 12:45:45 0.08 0.00-0.70 (K/uL) Final Basos, Abs 02/19/2024 12:45:45 0.01 0.00-0.20 (K/uL) Final Performing Location [facility] [address] - [address] [place] [address]
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
--- OUTSIDE RECORDS SUMMARY | 2024-04-18 05:25 | External Medical Summary ---
Author Name Unknown Address Unknown Organization K01:[facility] [address] [facility] [place] [address] Laboratory Report Ordering Provider Test Date Status GARRETT OLIVARES 02/19/2024 12:45:45 Final Observation Date Value Abnormality Reference (Units ) Status TSH 02/19/2024 12:45:45 15.90 Above high normal 0. 27-4.20 (uIU/mL) Final Performing Location [facility] - [address] [place] [address]
--- OUTSIDE RECORDS SUMMARY | 2024-04-18 05:25 | External Medical Summary | Summary of Care ---
Author Name Unknown Organization [facility] Address [address] [place] [address] Phone [phone] Care Team Providers Care Music Writer Name Role Phone Mariela Molina DO Primary Care Provider [phone] Reason for Visit * Reason Onset Date Comments Test Results 02/19/2024 Unexpected or In determinate Result Encounter Details Date Type Department Care Team (Late st Contact Info) Description 02/19/2024 Telephone Radiology [address] 132 [place] [address] Romaine Rolon MD [address] [place] [address] Test Results (Unexpected or Indeterminate ... Allergies [...] mL 1 11/09/2023 Active Ergocalciferol 1.25 MG (17339 UT) Oral Capsule (Vitamin D2(Drisdol))Indic ations:Anaplastic thyroid [...] 10 mL IV PUSH ONCE 02/19/2024 02/20/2024 Ended documented as of this encounter (statuses as [...] mRNA, LNP-s, No Pre serve, 2-Dose Series ([employer]) 04/25/2021,10/12/2020,09/21/2020 COVID-19, MRNA-LNP, 23-24, P F, 50 [...] encounter Miscellaneous Notes * Telephone Encounter - Romaine Rolon MD - 02/20/2024 6:56 AM EDT Noted. * Telephone Encounter - Ernestina Chanel OSA - 02/19/2024 8:34 PM EDT Hello- The radiologist discovered an unexpected or indeterminate finding on Delia Castillo ([id number]) and asks that you review the following [...] Thank you, PAT Pandya Client Service Rep [facility] documented in this encounter Plan of Treatment Upcoming Encounters Date Type Department Care Team (Late st Contact Info) Description 02/21/2024 3:40 PM EDT Office Visit Family Practice [address] [place] [address] [place] [address] Mariela Molina, 293 [place] [address] 02/27/2024 8:45 AM EDT Office Visit Hematology/Oncology [facility] 200 [place] [address] Romaine Rolon MD 200 [place], [place] [phone] 03/12/2024 2:30 PM EDT Office Visit Palliative Medicine [facility] 200 [place] [address] Britt Mascorro MD [address] [place] [address] 04/08/2024 9:45 AM EDT Pharmacy Pharmacy Hematology Oncology [facility] [address] [place] [address] [facility], [facility] Hem/Onc [address] [place] [address] Scheduled Procedures Name Priority Associated Diagnoses Date/Ti [...] as of this encounter Care Teams Music Writer Relationship Specialty Start Date End Date Mariela Molina DO PCP - General Family Medicine 02/09/22 documented as of this encounter
--- OUTSIDE RECORDS SUMMARY | 2024-04-18 05:25 | External Medical Summary ---
Author Name Unknown Address Unknown Organization [facility] [address] [place] [address] Laboratory Report Ordering Provider Test Date Status GARRETT OLIVARES 02/19/2024 12:45:45 Final Observation Date Value Abnormality Reference (Units ) Status WBC, Total 02/19/2024 12:45:45 4.96 4.00-10.8 0 (K/uL) Final RBC 02/19/2024 12:45:45 3.80 3.85-5.15 (M/uL) Final Hemoglobin 02/19/2024 12:45:45 10.4 Below low normal 12 .0-15.3 (g/dL) Final HCT 02/19/2024 12:45:45 34.1 Below low normal 36. 0-45.2 (%) Final MCV 02/19/2024 12:45:45 89.7 81.5-97.5 (fL) Final MCH 02/19/2024 12:45:45 27.4 27.0-34.0 (pg) Final MCHC 02/19/2024 12:45:45 30.5 32.0-36.0 (g/dL) Final RDW 02/19/2024 12:45:45 17.9 11.5-15.5 (%) Final Platelets 02/19/2024 12:45:45 200 140-400 (K /uL) Final MPV 02/19/2024 12:45:45 10.0 6.6-11.1 ( fL) Final Performing Location [facility] [address] [place] [address]
[2024-04-18 05:53] LABS: Basophils # (auto) 0.02 K/uL (0.00-0.20); Basophils % (auto) 0.4 %; Eosinophils # (auto) 0.01 K/uL (0.00-0.50); Eosinophils % (auto) 0.2 %; Hematocrit (blood only) 30.7 % (37.0-47.0); Hemoglobin 9.8 g/dl (12.0-16.0); Immature Granulocytes # (auto) 0.01 K/uL (0.01-0.20); Immature Granulocytes % (auto) 0.2 %; Lymphocytes % (auto) 18.2 %; Mean Corpuscular Hemoglobin 28.2 pg (25.0-34.0); Mean Corpuscular Hgb Conc 31.9 g/dL (32.0-36.0); Mean Corpuscular Volume 88.2 fL (80.0-100.0); Mean Platelet Volume 10.1 fL (9.4-12.4); Monocytes # (auto) 0.44 K/uL (0.11-0.59); Monocytes % (auto) 8.9 %; Neutrophils # (auto) 3.57 K/uL (1.40-6.50); Neutrophils % (auto) 72.1 %; Platelet Count 188 K/uL (130-400); RDW Coefficient of Variation 17.2 % (11.5-14.5); RDW Standard Deviation 55.3 fL (36.4-46.3); Red Blood Count 3.48 M/uL (4.20-5.40); White Blood Count 4.95 K/ul (4.8-10.8)
[2024-04-18 06:04] LABS: BUN Creatinine Ratio 33.3 (10-20); Creatinine Clr Calc Pharmacy 64.4 ml/min; Est GFR (African American) 108.5 ml/min; Est GFR (Non-African American) 93.6 ml/min; Potassium 3.7 mmol/L (3.5-5.1)
[2024-04-18] MEDS: LEVOTHYROXINE SODIUM 100 MCG TABLET PO SCH (06:46)
--- NOTE | 2024-04-18 07:26 | XRay Report ---
XR chest 1V portable HISTORY: 73 years-old Female pneumothorax acute shortness of breath COMPARISON: 04/17/2024 chest radiograph, chest CT 02/19/2024 TECHNIQUE: AP view the chest FINDINGS: Limited exam secondary to positioning. There is a catheter projected over the right midlung. There is resolution of the previously described right-sided pneumothorax. Mild chronic interstitial coarsenin g. Nondisplaced right posterior ninth rib fracture redemonstrated. IMPRESSION: 1. Resolution of the previously noted right-sided pneumothorax. 2. Probable nondisplaced fracture of the posterior right ninth rib again noted. ACT 112: Negative or not required by law. The above report was generated using voice recognition software. It may contain grammatical, syntax o r spelling errors. Electronically signed by: Meek Britton M.D. 04/18/2024 7:23 AM
--- NOTE | 2024-04-18 07:32 | XRay Report ---
XR chest 1V portable HISTORY: s/p PTX catheter R chest COMPARISON: Chest 04/17/2024. FINDINGS: Interval placement right-sided chest tube. This terminates within the right midlung zone. T he small to moderate right-sided pneumothorax persists and measures up to 2 cm. Rotated study. Mild e nlargement the cardiac silhouette. Mild elevation of the right hemidiaphragm. The lungs are clear. IMPRESSION: Interval placement of a right-sided chest tube. No change in the small to moderate right pneumothorax . ACT 112: Negative or not required by law. Electronically signed by: Afshin Theodore M.D. 04/18/2024 7:30 AM
--- OUTSIDE RECORDS SUMMARY | 2024-04-18 07:33 | External Medical Summary | Summary of Care ---
Author Name Unknown Organization [facility] Address [address] [place] [address] Phone [phone] Care Team Providers Care Platform Engineer Name Role Phone Mariela Beard DO Primary Care Provider [phone] Reason for Visit * Reason Comments Re-Check Encounter Details Date Type Department Care Team (Late st Contact Info) Description 04/16/2024 11:20 AM EDT Telemedicine Family Practice 65 [facility] [address] [place] [phone] Mariela Beard DO [address] [place] [address] Malignant neoplasm metastatic to both lungs (HCC)*; [...] mL 1 11/09/2023 Active Ergocalciferol 1.25 MG (85697 UT) Oral Capsule (Vitamin D2(Drisdol))Rubina cations:Anaplast ic [...] mRNA, LNP-s, No Pre serve, 2-Dose Series ([place]) 04/25/2021,10/12/2020,09/21/2020 COVID-19, MRNA-LNP, 23-24, P F, 50 [...] No 08/24/2023 Does the household have a [facility] source of income? (Household - for [...] of this encounter Progress Notes * Mariela Beard, - 04/16/2024 11:15 AM EDT Patient location: HOME. I was in a hospital or clinic location. After connecting through televideo,patient was verified with two unique identifiers. 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 Methods to assure confidentiality were taken. Patient acknowledged consent and understanding of pr ivacy and security of the Telemedicine visit. The patient agreed to participate. SUBJECTIVE: Chief Complaint Patient presents with Re-Check HPI: Ernestina Castillo is a 73 year old female who was seen over video visit today. Pt has had significant decline in functional status. 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 Her left arm is now affected. notes that he has to "medical records library professor" carry her as her legs have not been working wellthe last 4 days. She has stairs to get to her bathroom and bedroom. She did have a hospice meeting with [facility] but elects to pursue radiation and continue [...] not taking: Reported on 02/21/2024) Magic Mouthwash (Emohuyncr-Adbibkua-Tfafztaf) oral solution Swish and spit 15 mL in the morning and15 mL before bedtime. 200 mL 1 Ergocalciferol 1.25 MG (55694 UT) Oral Capsule (Vitamin D2(Drisdol)) Take 1 [...] performed by Madisyn Montiel MD at ENDOSCOPY [facility] COLONOSCOPY, DIAGNOSTIC (RECTUM) 09/24/2018 rectal ulcer, repeat 5 yrs/COLONOSCOPY FLEXIBLE PROXIMAL DIAGNOSTIC performed by Madisyn Montiel MD at ENDOSCOPY [facility] MISCELLANEOUS ORDER mole removed from leg [...] and documentation time was 58 minutes. Mariela Beard DO documented in this encounter Miscellaneous Notes * Addendum Note - Mariela Beard DO - 04/17/2024 2:43 PM EDTAddended by: MARIELA BEARD on: 04/17/2024 02:43 PM Modules accepted: Orders * Addendum Note - Ernestina Downs LPN - 04/17/2024 2:42 PM EDTAddended by: ERNESTINA DOWNS on: 04/17/2024 02:42 PM Modules accepted: Orders documented in this encounter Plan of Treatment Upcoming Encounters Date Type Department Care Team (Late st Contact Info) Description 04/22/2024 3:00 PM EDT Telemedicine Family Practice 65 [facility] [address] [place] [address] Marieal Beard DO [address] [place] [address] 2024 2:45 PM EDT Office Visit Hematology/Oncology [facility] [address] [place] [phone] Romaine Rolon MD [address] [place] [address] Scheduled Procedures Name Priority Associated Diagnoses Date/Ti [...] Documents on File Type Date Recorded Patient Card Doffer Expl anation POLST 04/10/2024 signed on 04/09 POLST Care Teams Platform Engineer Relationship Specialty Start Date End Date Mariela Beard DO [address] [place] [address] PCP - General Family Medicine 02/20/24 documented as of this encounter
--- OUTSIDE RECORDS SUMMARY | 2024-04-18 07:33 | External Medical Summary | Summary of Care ---
Author Name Unknown Organization [facility] Address [address] [place] [address] Phone [phone] Care Team Providers Care It Infrastructure Manager Name Role Phone Mariela Beard DO Primary Care Provider [phone] Reason for Visit * Reason Comments Re-Check Encounter Details Date Type Department Care Team (Late st Contact Info) Description 04/16/2024 11:20 AM EDT Telemedicine Family Practice 65 [facility] [address] [place] [phone] Mariela Beard DO [address] [place] [address] Malignant neoplasm metastatic to both lungs (HCC)*; [...] mL 1 11/09/2023 Active Ergocalciferol 1.25 MG (84151 UT) Oral Capsule (Vitamin D2(Drisdol))Rubina cations:Anaplast ic [...] mRNA, LNP-s, No Pre serve, 2-Dose Series ([place]) 04/25/2021,10/12/2020,09/21/2020 COVID-19, MRNA-LNP, 23-24, P F, 50 [...] No 08/24/2023 Does the household have a [facility] source of income? (Household - for [...] as of this encounter Progress Notes * Delia Downs LPN - 04/17/2024 2:50 PM EDT Tomorrow health order was done yesterday. Added more information that was requested once nurse called [facility]. * Mariela Beard DO - 04/16/2024 11:15 AM EDT Patient location: HOME. I was in a hospital or clinic location. After connecting through televideo,patient was verified with two unique identifiers. 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 Methods to assure confidentiality were taken. Patient acknowledged consent and understanding of pr ivacy and security of the Telemedicine visit. The patient agreed to participate. SUBJECTIVE: Chief Complaint Patient presents with Re-Check HPI: Delia Castillo is a 73 year old female who was seen over video visit today. Pt has had significant decline in functional status. 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 Her left arm is now affected. notes that he has to "manager policy" carry her as her legs have not [...] not taking: Reported on 02/21/2024) Magic Mouthwash (Xgdyrvmkx-Qzioudci-Qhlbfjas) oral solution Swish and spit 15 mL in the morning and15 mL before bedtime. 200 mL 1 Ergocalciferol 1.25 MG (45415 UT) Oral Capsule (Vitamin D2(Drisdol)) Take 1 [...] performed by Madisyn Montiel MD at ENDOSCOPY [facility] COLONOSCOPY, DIAGNOSTIC (RECTUM) 09/24/2018 rectal ulcer, repeat 5 yrs/COLONOSCOPY FLEXIBLE PROXIMAL DIAGNOSTIC performed by Madisyn Montiel MD at ENDOSCOPY [facility] MISCELLANEOUS ORDER mole removed from [...] Modules accepted: Orders * Addendum Note - Delia Downs LPN - 04/17/2024 2:42 PM EDTAddended by: DELIA DOWNS on: 04/17/2024 02:42 PM Modules accepted: Orders documented in this encounter Plan of Treatment Upcoming Encounters Date Type Department Care Team (Late st Contact Info) Description 04/22/2024 3:00 PM EDT Telemedicine Family Practice 65 [facility] [address] [place] [address] Mariela Beard DO [address] [place] [address] 2024 2:45 PM EDT Office Visit Hematology/Oncology [facility] [place] [address] [place] [phone] Romaine Rolon MD [address] [place] [address] Scheduled Procedures Name Priority Associated Diagnoses Date/Ti [...] Documents on File Type Date Recorded Patient Engineering Research Manager Expl anation BRET 04/10/2024 signed on 04/09 [facility] Care Teams It Infrastructure Manager Relationship Specialty Start Date End Date Mariela Beard DO [address] [place] [address] PCP - General Family Medicine 02/20/24 documented as of this encounter
--- OUTSIDE RECORDS SUMMARY | 2024-04-18 07:33 | External Medical Summary | Summary of Care ---
Author Name Unknown Organization [facility] Address [address] [place] [address] Phone [phone] Care Team Providers Care Metal Sprayer Name Role Phone Mariela Beard DO Primary Care Provider Reason for Visit * Reason Comments Re-Check Encounter Details Date Type Department Care Team (Late st Contact Info) Description 04/16/2024 11:20 AM EDT Telemedicine Family Practice 65 [facility] [address] [place] [phone] Mariela Beard DO [address] [place] [address] Malignant neoplasm metastatic to both lungs (HCC)*; [...] mL 1 11/09/2023 Active Ergocalciferol 1.25 MG (13008 UT) Oral Capsule (Vitamin D2(Drisdol))Rubina cations:Anaplast ic [...] mRNA, LNP-s, No Pre serve, 2-Dose Series ([place]) 04/25/2021,10/12/2020,09/21/2020 COVID-19, MRNA-LNP, 23-24, P F, 50 [...] No 08/24/2023 Does the household have a [facility] source of income? (Household - for [...] two unique identifiers. 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 notes that he has to "chassis engineer" carry her as her legs have not been working wellthe last 4 days. She has stairs to get to her bathroom and bedroom. She did have a hospice meeting with [facility] but elects to pursue radiation and [...] not taking: Reported on 02/21/2024) Magic Mouthwash (Isfezlksq-Bjgialjm-Zawpclyl) oral solution Swish and spit 15 mL in the morning and15 mL before bedtime. 200 mL 1 Ergocalciferol 1.25 MG (67002 UT) Oral Capsule (Vitamin D2(Drisdol)) Take 1 [...] performed by Madisyn Montiel MD at ENDOSCOPY [facility] COLONOSCOPY, DIAGNOSTIC (RECTUM) 09/24/2018 rectal ulcer, repeat 5 yrs/COLONOSCOPY FLEXIBLE PROXIMAL DIAGNOSTIC performed by Madisyn Montiel MD at ENDOSCOPY [facility] MISCELLANEOUS ORDER mole removed from leg [...] 3:00 PM EDT Telemedicine Family Practice 65 [facility] [address] [place] [address] Mariela Beard DO [address] [place] [address] 2024 2:45 PM EDT Office Visit Hematology/Oncology [facility] [address] [place] [phone] Romaine Rolon MD [address] [place] [address] Scheduled Procedures Name Priority Associated Diagnoses Date/Ti [...] Documents on File Type Date Recorded Patient Sweeper Driver Expl anation POLST 04/10/2024 signed on 04/09 POLST Care Teams Metal Sprayer Relationship Specialty Start Date End Date Mariela Beard DO [address] [place] [address] PCP - General Family Medicine 02/20/24 documented as of this encounter
--- OUTSIDE RECORDS SUMMARY | 2024-04-18 07:33 | External Medical Summary | Summary of Care ---
Author Name Unknown Organization [facility] Address [address] [place] [address] Phone [phone] Care Team Providers Care Operations Executive Name Role Phone Mariela Molina DO Primary Care Provider Reason for Visit * Reason Comments Re-Check Encounter Details Date Type Department Care Team (Late st Contact Info) Description 04/16/2024 11:20 AM EDT Telemedicine Family Practice 65 [facility] [address] [place] [phone] Mariela Molina DO [address] [place] [address] Malignant neoplasm metastatic to both lungs (HCC)*; [...] mL 1 11/09/2023 Active Ergocalciferol 1.25 MG (38068 UT) Oral Capsule (Vitamin D2(Drisdol))Rubina cations:Anaplast ic [...] mRNA, LNP-s, No Pre serve, 2-Dose Series ([place]) 04/25/2021,10/12/2020,09/21/2020 COVID-19, MRNA-LNP, 23-24, P F, 50 [...] the household have a [facility] source of income? (Household - for ages [...] two unique identifiers. 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 notes that he has to "fabric normalizer" carry her as her legs have not been working wellthe last 4 days. She has stairs to get to her bathroom and bedroom. She did have a hospice meeting with [facility] but elects to pursue radiation and continue [...] not taking: Reported on 02/21/2024) Magic Mouthwash (Xgamsqhbf-Jkrlknjl-Wzmqjjdt) oral solution Swish and spit 15 mL in the morning and15 mL before bedtime. 200 mL 1 Ergocalciferol 1.25 MG (58102 UT) Oral Capsule (Vitamin D2(Drisdol)) Take 1 [...] performed by Madisyn Montiel MD at ENDOSCOPY [facility] COLONOSCOPY, DIAGNOSTIC (RECTUM) 09/24/2018 rectal ulcer, repeat 5 yrs/COLONOSCOPY FLEXIBLE PROXIMAL DIAGNOSTIC performed by Madisyn Montiel MD at ENDOSCOPY [facility] MISCELLANEOUS ORDER mole removed from leg [...] Mariela Molina DO documented in this encounter Miscellaneous Notes * Addendum Note - Ernestina Downs LPN - 04/17/2024 2:42 PM EDTAddended by: ERNESTINA DOWNS on: 04/17/2024 02:42 PM Modules accepted: Orders documented in this encounter Plan of Treatment Upcoming Encounters Date Type Department Care Team (Late st Contact Info) Description 04/22/2024 3:00 PM EDT Telemedicine Family Practice 65 [facility] [address] [place] [address] Mariela Molina DO 293 [place] [id number] 2024 2:45 PM EDT Office Visit Hematology/Oncology [facility] [address] [facility] [place] [phone] Romaine Rolon MD 200 [place] [place] [address] Scheduled Procedures Name Priority Associated Diagnoses Date/Ti [...] Documents on File Type Date Recorded Patient Javascript Software Engineer Expl anation BRET 04/10/2024 signed on 04/09 POL Care Teams Operations Executive Relationship Specialty Start Date End Date Mariela Molina DO [address] [facility] [place] [address] PCP - General Family Medicine 02/20/24 documented as of this encounter
--- OUTSIDE RECORDS SUMMARY | 2024-04-18 07:33 | External Medical Summary | Summary of Care ---
Author Name Unknown Organization [facility] Address [address] [place] [address] Phone [phone] Care Team Providers Care Photography Professor Name Role Phone Mariela Beard DO Primary Care Provider Reason for Visit * Reason Comments Re-Check Encounter Details Date Type Department Care Team (Late st Contact Info) Description 04/16/2024 11:20 AM EDT Telemedicine Family Practice 65 [facility] [address] [place] [phone] Mariela Beard DO [address] [place] [address] Malignant neoplasm metastatic to both lungs (HCC)*; [...] mL 1 11/09/2023 Active Ergocalciferol 1.25 MG (89383 UT) Oral Capsule (Vitamin D2(Drisdol))Rubina cations:Anaplast ic [...] mRNA, LNP-s, No Pre serve, 2-Dose Series ([employer]) 04/25/2021,10/12/2020,09/21/2020 COVID-19, MRNA-LNP, 23-24, P F, 50 [...] No 08/24/2023 Does the household have a [facility] source of income? (Household - for [...] two unique identifiers. Patient (or authorized legal medical claims representative) was then informed that this was [...] now affected. notes that he has to "clothes drier repairer" carry her as her legs have not been working wellthe last 4 days. She has stairs to get to her bathroom and bedroom. She did have a hospice meeting with [facility] but elects to pursue radiation and [...] not taking: Reported on 02/21/2024) Magic Mouthwash (Ksjgsbxjh-Wlroyzsp-Mwrdcsnh) oral solution Swish and spit 15 mL in the morning and15 mL before bedtime. 200 mL 1 Ergocalciferol 1.25 MG (80998 UT) Oral Capsule (Vitamin D2(Drisdol)) Take 1 [...] by Madisyn Montiel MD at ENDOSCOPY [facility] COLONOSCOPY, DIAGNOSTIC (RECTUM) 09/24/2018 rectal ulcer, repeat 5 yrs/COLONOSCOPY FLEXIBLE PROXIMAL DIAGNOSTIC performed by Madisyn Montiel MD at ENDOSCOPY [facility] MISCELLANEOUS ORDER mole removed from leg 1989 [...] 3:00 PM EDT Telemedicine Family Practice 65 [facility] [address] [place] [address] Mariela Beard DO [address] [place] [address] 2024 2:45 PM EDT Office Visit Hematology/Oncology [facility] [address] [place] [phone] Romaine Rolon MD [address] [place] [address] Scheduled Procedures Name Priority Associated Diagnoses Date/Ti [...] Documents on File Type Date Recorded Patient It Assistant Expl anation POLST 04/10/2024 signed on 04/09 POLST Care Teams Photography Professor Relationship Specialty Start Date End Date Mariela Beard DO [address] [place] [address] PCP - General Family Medicine 02/20/24 documented as of this encounter
[2024-04-18 07:41] VITALS: TEMP 97.9
[2024-04-18] MEDS: LORazepam 0.5 MG TAB SL PRN (09:16)
[2024-04-18] MEDS: dexAMETHasone 4 MG TAB PO SCH (09:53)
[2024-04-18] MEDS: PREGABALIN 100 MG CAP PO SCH (09:53)
--- NOTE | 2024-04-18 10:30 | Pulmonary Consultation ---
Date of Consultation April 18, 2024 Assessment & Plan (1) Pneumothorax: Pneumothorax type: unspecified pneumothorax Qualified Code(s): J93.9 - Pneumothorax, unspecified Plan Impression: 73-year-old female with metastatic anaplastic thyroid carcinoma now with pneumothorax likely associated with a rib fracture which may be pathologic. The tube placed by the ER is now migrated out of the chest and is in the subcutaneous tissues. Recommendation: 1. Pneumothorax: Suspect this may have been related to the rib fracture. Nevertheless, the chest tube is out of the thoracic cavity and in the subcutaneous tissues. It was removed and an occlusive dressing was applied. Fortunately the chest x-ray demonstrates resolution of the pneumothorax. If the patient remains in the hospital, could consider repeat chest x-ray in the a.m.. 2. Management of the patient's other medical issues is deferred to the primary admitting service. Pulmonary will sign off. Feel free to contact us with questions or concerns History of Present Illness Attending Physician: Trevor Mckinney, History of Present Illness Asked by hospitalist to assist in evaluation management this patient with pneumothorax. History is obtained from discussion with the patient as well as review the electronic medical record. The patient is a 73-year-old female with a history of metastatic thyroid carcinoma and malnutrition who presented to the emergency room with shortness of breath. She has significant bony metastases and is becoming more and more debilitated. Her chest x-ray demonstrated pneumothorax as well as a probable pathologic rib fracture. A small bore catheter was placed for evacuation of the pneumothorax in the emergency room and she was admitted to the hospitalist service. This morning the x-ray reveals that the catheter is migrated out of the chest wall. On exam, it is barely in the subcutaneous tissues. It was removed and an occlusive dressing applied. Fortunately the pneumothorax appears to have resolved. Allergies Allergy/AdvReac Type Severity Reaction Status Date / Time Penicillins AdvReac Mild UPSET Verified 04/17/24 20:13 STOMACH Home Medications Medication Instructions Recorded Confirmed Type apixaban 5 mg tablet (Eliquis) 5 mg PO BID #74 tabs 10/04/22 04/17/24 Rx dabrafenib 75 mg capsule 150 mg PO BID 10/23/23 04/17/24 History pregabalin 100 mg capsule (Lyrica) 200 mg PO TID 10/23/23 04/17/24 History trametinib 2 mg tablet 2 mg PO HS 10/23/23 04/17/24 History dexamethasone 4 mg tablet 8 mg PO BIDM 04/17/24 04/17/24 History ergocalciferol (vitamin D2) 1,250 1,250 mcg PO .EVERY 14 DAYS 04/17/24 04/17/24 History mcg (50,000 unit) capsule levothyroxine 100 mcg tablet 100 mcg PO DAILYBB 04/17/24 04/17/24 History lorazepam 0.5 mg tablet 0.5 mg buccal UD 04/17/24 04/17/24 History morphine 30 mg tablet,extended 30 mg PO AMHS 04/17/24 04/17/24 History release oxycodone 10 mg tablet 10 mg PO Q4 PRN Severe Pain (Scale 04/17/24 04/17/24 History Score 7-10) Patient History Medical History (Updated 04/17/24 @ 20:51 by Adrian Pritchett DO) DVT (deep venous thrombosis) right arm H/O radioactive iodine thyroid ablation Thyroid cancer Surgical History (Updated 10/23/23 @ 13:42 by Nohemi Robbins RN) Status post dissection of neck H/O thyroidectomy History of partial thyroidectomy Hx of neck surgery Family History (Updated 10/23/23 @ 13:45 by Nohemi Robbins RN) Son Cancer thyroid Family/Other Cancer thyroid Brother Cancer Prostate Brother Cancer Liposarcoma Uncle Cancer Pancreatic Social History (Updated 10/23/23 @ 13:46 by Nohemi Robbins, FAY) Smoking Status: Never smoker Second Hand Exposure: No; Do You Dip or Chew Tobacco: No; Tobacco Cessation Education Requested by Patient: No Hx Alcohol Use: No Hx Substance Use: No Preferred Language: Bolivian Communication Ability: Effective Cradle Slide Maker Required: No Beliefs That Will Affect Care: None Current Living Situation: Spouse Other Information That Helps Us Care for You: No Feels Safe at Home: Yes Safety Concerns: Feels Safe At This Time Diet: vegetarian Diet Comment: supplementing in attempt to gain weight Assistive Devices: None Review of Systems Review of Systems: Please refer to admission H&P. No additions or deletions Physical Exam Physical Exam: General- Not in acute distress. Thin and frail. Head- atraumatic Eyes- PERRL. ENT- oropharynx clear Neck- Large mass seen on the right side of neck. Lungs- clear to auscultation no wheezing or crackles. No crepitus Heart- regular rate and rhythm; no murmur, no gallop. Abdomen- normal bowel sounds, soft, nontender, no distension Extremities- b.l lower ext edema present Rt>LT, No erythema seen Neuro- alert, oriented PERRL, no facial palsy; no dysarthria; minimal movement of lower extremity, No movement of right upper extremity Results & Data Results & Data Vital Signs (Past 12 Hours) Vital Signs Temp Pulse Pulse Resp BP Pulse Ox O2 Del Method 04/18/24 07:40 36.6 C 77 18 121/71 96 Room Air 04/18/24 02:45 36.5 C 73 16 115/63 95 Room Air 04/17/24 23:30 Room Air 04/17/24 23:30 36.5 C 72 16 110/62 93 Room Air O2 Flow Rate 04/18/24 07:40 04/18/24 02:45 95 04/17/24 23:30 04/17/24 23:30 Critical Care Results & Data Vital Signs (Past 12 Hours) Vital Signs Temp Pulse Pulse Resp BP Pulse Ox O2 Del Method 04/18/24 07:40 36.6 C 77 18 121/71 96 Room Air 04/18/24 02:45 36.5 C 73 16 115/63 95 Room Air 04/17/24 23:30 Room Air 04/17/24 23:30 36.5 C 72 16 110/62 93 Room Air O2 Flow Rate 04/18/24 07:40 04/18/24 02:45 95 04/17/24 23:30 04/17/24 23:30 Lab & Micro Results (Past 24 Hours) RBC 3.48 M/uL (4.20-5.40) L 04/18/24 WBC 4.95 K/ul (4.8-10.8) 04/18/24 Hgb 9.8 g/dl (12.0-16.0) L 04/18/24 Hct 30.7 % (37.0-47.0) L 04/18/24 MCV 88.2 fL (80.0-100.0) 04/18/24 MCH 28.2 pg (25.0-34.0) 04/18/24 MCHC 31.9 g/dL (32.0-36.0) L 04/18/24 RDW Standard Deviation 55.3 fL (36.4-46.3) H 04/18/24 RDW Coefficient of Variation 17.2 % (11.5-14.5) H 04/18/24 Plt Count 188 K/uL (130-400) 04/18/24 MPV 10.1 fL (9.4-12.4) 04/18/24 Neutrophils (%) (Auto) 72.1 % 04/18/24 Lymphocytes (%) (Auto) 18.2 % 04/18/24 Monocytes # (Auto) 0.44 K/uL (0.11-0.59) 04/18/24 Eosinophils # (Auto) 0.01 K/uL (0.00-0.50) 04/18/24 Immature Granulocyte % (Auto) 0.2 % 04/18/24 Neutrophils # (Auto) 3.57 K/uL (1.40-6.50) 04/18/24 Lymphocytes # (Auto) 0.90 K/uL (1.20-3.40) L 04/18/24 Monocytes # (Auto) 0.44 K/uL (0.11-0.59) 04/18/24 Eosinophils # (Auto) 0.01 K/uL (0.00-0.50) 04/18/24 Basophils # (Auto) 0.02 K/uL (0.00-0.20) 04/18/24 Immature Granulocyte # (Auto) 0.01 K/uL (0.01-0.20) 4 Na 141 mmol/L (136-145) 04/18/24 K 3.7 mmol/L (3.5-5.1) 04/18/24 Cl 100 mmol/L (98-107) 04/18/24 CO2 36 mmol/L (21-32) H 04/18/24 Anion Gap 5 (3-11) 04/18/24 BUN 18 mg/dl (6-23) 04/18/24 Creatinine 0.54 mg/dl (0.6-1.2) L 04/18/24 Estimated GFR ( Amer) 108.5 ml/min 04/18/24 Estimated GFR (Non-Af Amer) 93.6 ml/min 04/18/24 BUN/Creatinine Ratio 33.3 (10-20) H 04/18/24 Glu 87 mg/dl (70-99(Fasting)) 04/18/24 Ca 8.0 mg/dl (8.6-10.3) L 04/18/24 Total Bilirubin 0.7 mg/dl (0.2-1.0) 04/17/24 AST 27 U/L (13-39) 04/17/24 ALT 16 U/L (7-52) 04/17/24 Alkaline Phosphatase 140 U/L (34-104) H 04/17/24 TP 6.3 gm/dl (6.0-8.3) 04/17/24 Albumin 3.3 gm/dl (3.4-5.0) L 04/17/24 Globulin 3.0 gm/dl (2.5-4.0) 04/17/24 Albumin/Globulin Ratio 1.1 (0.9-2) 04/17/24 Mg 2.0 mg/dl (1.7-2.4) 04/18/24 05:27 Calcium Level 8.0 mg/dl (8.6-10.3) L 04/18/24 05:27 Diagnostic Findings (Past 24 Hours) Chest X-Ray 04/17/24 17:55 XR chest 1V portable HISTORY: Chest pain, nonspecific COMPARISON: Chest 12/28/2016. FINDINGS: There is a small to moderate right pneumothorax demonstrating a maximal pleural gap of 2 cm. The patient is slightly rotated which results in difficult evaluation for mediastinal shift. No focal lung consolidations to suggest a pneumonia. No evidence for pulmonary edema. Nondisplaced right posterior ninth rib fracture is noted. The heart is top normal in size. No pleural effusions. IMPRESSION: 1. Small to moderate right pneumothorax. 2. Nondisplaced right posterior ninth rib fracture. ACT 112: Negative or not required by law. Electronically signed by: Afshin Theodore M.D. 04/17/2024 6:56 PM Chest X-Ray 04/17/24 19:30 XR chest 1V portable HISTORY: s/p PTX catheter R chest COMPARISON: Chest 04/17/2024. FINDINGS: Interval placement right-sided chest tube. This terminates within the right midlung zone. The small to moderate right-sided pneumothorax persists and measures up to 2 cm. Rotated study. Mild enlargement the cardiac silhouette. Mild elevation of the right hemidiaphragm. The lungs are clear. IMPRESSION: Interval placement of a right-sided chest tube. No change in the small to moderate right pneumothorax. ACT 112: Negative or not required by law. Electronically signed by: Afshin Theodore M.D. 04/18/2024 7:30 AM Chest X-Ray 04/18/24 08:00 XR chest 1V portable HISTORY: 73 years-old Female pneumothorax acute shortness of breath COMPARISON: 04/17/2024 chest radiograph, chest CT 02/19/2024 TECHNIQUE: AP view the chest FINDINGS: Limited exam secondary to positioning. There is a catheter projected over the right midlung. There is resolution of the previously described right-sided pneumothorax. Mild chronic interstitial coarsening. Nondisplaced right posterior ninth rib fracture redemonstrated. IMPRESSION: 1. Resolution of the previously noted right-sided pneumothorax. 2. Probable nondisplaced fracture of the posterior right ninth rib again noted. ACT 112: Negative or not required by law. The above report was generated using voice recognition software. It may contain grammatical, syntax or spelling errors. Electronically signed by: Meek Britton M.D. 04/18/2024 7:23 AM I & O Totals 24 Hours 04/17/24 04/18/24 04/19/24 06:59 06:59 06:59 Intake Total 500 / 500 Output Total 1280 / 1280 Balance -780 / -780 Cumulative 04/17/24 17:34 thru 04/18/24 06:34 Intake Total 500 Output Total 1280 Balance -780 RT Ventilator Mngmt (Last Documented) Ventilator Ordered Settings Respiratory Rate 18 04/18/24 07:40 Ventilator - PT Measurements Respiratory Rate 18 PG Care Time/CCT Total # of Minutes Spent Total Time Spent with Patient: Total time spent is greater than 50% in coordination of care (as documented) at patient's floor/unit and/or counseling patient: Coding Level of Care Code 82345 INT INP/OBS CARE 2/55MIN Diagnoses Pneumothorax J93.9 Pneumothorax type: unspecified pneumothorax
[2024-04-18] MEDS ORDERED: ONDANSETRON INJ 2 MG/ML 2 ML VIAL IV PRN (11:22)
[2024-04-18] MEDS ORDERED: LORazepam 0.5 MG TAB SL PRN (11:22)
[2024-04-18] MEDS: MoRPHine SULFATE 4 MG/ML 1 ML CARP\\VIAL IV PRN (11:25)
--- NOTE | 2024-04-18 11:25 | Hospitalist Progress Note ---
Date of Service April 18, 2024 Assessment & Plan (1) Anaplastic carcinoma of thyroid: (2) Pain from bone metastases: (3) Pathologic rib fracture: (4) Pneumothorax, closed, traumatic: Plan Patient presented with weakness and rapidly progressing symptoms related to her advancing thyroid cancer. This included acute pneumothorax most likely due to pathologic fracture of her ninth rib. Chest tube was placed in the ED. Follow-up imaging showed pneumothorax has resolved and chest tube spontaneously with was out of position. Chest tube completely removed by pulmonary Extensive conversation with patient at bedside. She is very well-informed as to the rapid progression of her cancer. She understands that her time is very limited. We discussed her POLST form and she confirms her desire as outlined on the POLST. She also stated that she has been considering hospice care. We discussed hospice care. She recognizes that the radiation treatments that she had contemplated most likely will not change her overall prognosis. She believes that she really cannot manage with hospice at home and would need to go to a facility to receive hospice care. We discussed comfort measures only and she would want to proceed with her care that way. Transition to comfort measures only Case management to assist with hospice and placement with hospice care Pleasure feeds Medications for comfort Attempted to contact , listed phone number would not connect. Admission and Anticipated Discharge Date Admission Date: April 17, 2024 Subjective Patient having more difficulty with swallowing, more discomfort and pain, recognizes that her cancer is rapidly progressing and that her time is limited Physical Exam Physical Exam: Constitutional: Alert, frail, weak HEENT: Mucous membranes moist. Mass right lateral neck Lungs: Decreased breath sounds, poor airflow CV: S1-S2, regular Abdomen: Soft, nontender, nondistended Extremities: No significant edema Neuro: No focal deficits, generalized weakness Psych: Cooperative, normal mood Results & Data Results & Data Vital Signs (Past 12 Hours) Vital Signs Temp Pulse Pulse Resp BP Pulse Ox O2 Del Method 04/18/24 07:40 36.6 C 77 18 121/71 96 Room Air 04/18/24 02:45 36.5 C 73 16 115/63 95 Room Air 04/17/24 23:30 Room Air 04/17/24 23:30 36.5 C 72 16 110/62 93 Room Air O2 Flow Rate 04/18/24 07:40 04/18/24 02:45 95 04/17/24 23:30 04/17/24 23:30 Diagnostic Findings Reviewed imaging, laboratory and diagnostic studies. Pertinent findings as below. Personally reviewed chest x-ray, resolution of pneumothorax, chest tube out of the intra thoracic space, ninth rib fracture right Reviewed outside EMR, noted POLST form, comfort measures only Reviewed outpatient palliative care notes
--- NOTE | 2024-04-18 12:16 | Electrocardiogram Report ---
Test Reason : Blood Pressure : */* mmHG Vent. Rate : 72 BPM Atrial Rate : 72 BPM P-R Int : 128 ms QRS Dur : 116 ms QT Int : 408 ms P-R-T Axes : 87 73 98 degrees QTcB Int : 446 ms Normal sinus rhythm Right bundle branch block T wave abnormality, consider lateral ischemia Abnormal ECG When compared with ECG of 14-Jun-2011 10:21, Right bundle branch block is now Present Confirmed by Marvin Lees ([id number]) on 04/18/2024 12:16:33 PM Referred By: REFERRED SELF Confirmed By: Marvin Lees
[2024-04-18] MEDS: MoRPHine SULFATE 10 MG/0.5 ML UDP PO PRN (17:53)
[2024-04-18] MEDS ORDERED: NON-FORMULARY PATIENT'S OWN MED SCH (22:15)
--- NOTE | 2024-04-19 07:36 | XRay Report ---
XR chest 1V portable HISTORY: 73 years-old Female Verbal order Dr. Mckinney acute shortness of breath COMPARISON: 04/18/2024 TECHNIQUE: AP view of the chest FINDINGS: Cardiac mediastinal and hilar silhouettes are within normal limits. There is no pleural effusion or o vert pulmonary edema. Trace right apical pneumothorax redemonstrated. Nipple shadow projects over the right lung base. Fractured posterior right ninth rib redemonstrated. IMPRESSION: Trace right apical pneumothorax redemonstrated with fractured posterior right ninth rib f racture again seen. ACT 112: Negative or not required by law. The above report was generated using voice recognition software. It may contain grammatical, syntax o r spelling errors. Electronically signed by: Meek Britton M.D. 04/19/2024 7:34 AM
[2024-04-19 08:04] VITALS: RESP 16; O2SAT 96
[2024-04-19] MEDS: NYSTATIN SUSP 500,000 U/5 ML UDC PO SCH (08:45)
[2024-04-19] MEDS: FIRST - Mouthwash BLM 119 ML PO SCH (08:45)
[2024-04-19] MEDS: MoRPHine SULFATE 10 MG/ML CARP/VIAL IV SCH (13:30)
[2024-04-19] MEDS ORDERED: STAT IV Infusion **Titration per Protocol STA (15:20)
[2024-04-19] MEDS: MoRPHine SULF/NSS 100 MG/100 ML BAG IV SCH (15:49)
--- NOTE | 2024-04-19 16:14 | Hospitalist Progress Note ---
Date of Service April 19, 2024 Assessment & Plan (1) Anaplastic carcinoma of thyroid: (2) Pain from bone metastases: (3) Pathologic rib fracture: (4) Pneumothorax, closed, traumatic: Plan Ms. Castillo is a 73 year old woman who presented with weakness and rapidly progressing symptoms related to her advancing thyroid cancer. This included acute pneumothorax most likely due to pathologic fracture of her ninth rib. Chest tube was placed in the ED. Follow-up imaging showed pneumothorax has resolved and chest tube was out of position. Pulmonary removed chest tube. Patient transitioned to comfort measures 04/18. As of 04/19,patient unable to take PO morphine and difficult with liquid roxinol. Patient restless and with more pain concerns. Patient's MME exceeds over 80 therefore morphine drip initiated for better titration of pain. Over 45 minutes spent with family at bedside--discussed that given the rapid progression and inability to swallow/eat, as well as increasing pain requirements, unsure if patient is able to transfer to a facility ([facility] or SNF) Will discuss GIP with CM. Case management to assist with hospice and placement with hospice care -Plan for GIP eval -on morphine ggt Pleasure feeds as able Medications for comfort Discussed with Case management Admission and Anticipated Discharge Date Admission Date: April 17, 2024 Subjective More pain and unable to take po medication at this time Reports pain in right hand, burning neuropathy like discomfort Progressive weakness reported by family Physical Exam Constitutional: weak, head hanging over to right, unable to lift, frail cachectic Respiratory: diminished, 2/2 effort Cardiovascular: RRR, no murmur, no edema Results & Data Results & Data Vital Signs (Past 12 Hours) Vital Signs Temp Pulse Resp BP Pulse Ox O2 Del Method 04/19/24 08:15 Room Air 04/19/24 08:04 36.6 C 61 16 108/68 96 Room Air Medications Administered Home Medications Medication Instructions Recorded Confirmed Last Taken apixaban 5 mg tablet (Eliquis) 5 mg PO BID #74 tabs 10/04/22 04/17/24 Unknown dabrafenib 75 mg capsule 150 mg PO BID 10/23/23 04/17/24 Unknown pregabalin 100 mg capsule (Lyrica) 200 mg PO TID 10/23/23 04/17/24 Unknown trametinib 2 mg tablet 2 mg PO HS 10/23/23 04/17/24 Unknown dexamethasone 4 mg tablet 8 mg PO BIDM 04/17/24 04/17/24 Unknown ergocalciferol (vitamin D2) 1,250 1,250 mcg PO .EVERY 14 DAYS 04/17/24 04/17/24 Unknown mcg (50,000 unit) capsule levothyroxine 100 mcg tablet 100 mcg PO DAILYBB 04/17/24 04/17/24 Unknown lorazepam 0.5 mg tablet 0.5 mg buccal UD 04/17/24 04/17/24 Unknown morphine 30 mg tablet,extended 30 mg PO AMHS 04/17/24 04/17/24 Unknown release oxycodone 10 mg tablet 10 mg PO Q4 PRN Severe Pain (Scale 04/17/24 04/17/24 Unknown Score 7-10) Active Medications Generic Name Dose Route Start Last Admin Trade Name Freq PRN Reason Stop Dose Admin Apixaban 5 mg 04/17/24 22:30 04/19/24 08:40 Apixaban 5 Mg Tablet PO 05/17/24 22:29 Not Given BID [facility] Dexamethasone 8 mg 04/18/24 08:00 04/19/24 08:40 Dexamethasone 4 Mg Tab PO 05/18/24 07:59 Not Given BIDM ANGELINA Morphine Sulfate 100 mg in 100 mls @ 1 mls/hr 04/19/24 15:30 04/19/24 15:49 Morphine Sulf/Nss IV 05/03/24 15:29 1 mg/hr .Q96H ANGELINA 1 mls/hr Administration Protocol 1 MG/HR Levothyroxine Sodium 100 mcg 04/18/24 06:30 04/19/24 05:45 Levothyroxine Sodium 100 Mcg Tablet PO 05/18/24 06:29 Not Given DAILYBB [facility] Morphine Sulfate 30 mg 04/17/24 22:45 04/19/24 08:40 Morphine Sulfate Cr 15 Mg Tabcr PO 05/01/24 22:44 Not Given BID ANGELINA Morphine Sulfate 10 mg 04/18/24 11:22 04/19/24 12:37 Morphine Sulfate 10 Mg/0.5 Ml Udp PO 05/02/24 11:21 10 mg Q1H PRN Administration Pain or Respiratory Distress Multi-Ingredient Mouthwash/Gargle 5 ml 04/19/24 09:00 04/19/24 08:45 First - Mouthwash Blm 119 Ml PO 05/19/24 08:59 Not Given BID ANGELINA Nystatin 5 ml 04/19/24 09:00 04/19/24 08:45 Nystatin Susp 500,000 U/5 Ml Udc PO 05/19/24 08:59 Not Given BID ANGELINA Pregabalin 200 mg 04/18/24 09:00 04/19/24 13:48 Pregabalin 100 Mg Cap PO 05/18/24 08:59 Not Given TID ANGELINA
[2024-04-19] MEDS: TRAMETINIB DIMETHYL SULFOXIDE PO SCH (20:56)
[2024-04-20] MEDS: MoRPHine BOLUS from BAG IV PRN (05:49)
[2024-04-20] MEDS ORDERED: GLYCOPYRROLATE 0.2 MG/ML VIAL IV PRN (14:46)
[2024-04-20] MEDS ORDERED: LORazepam 2 MG/1 ML VIAL IV PRN (14:46)
--- NOTE | 2024-04-20 14:49 | Hospitalist Progress Note ---
Date of Service April 20, 2024 Assessment & Plan (1) Anaplastic carcinoma of thyroid: (2) Pain from bone metastases: (3) Pathologic rib fracture: (4) Pneumothorax, closed, traumatic: Plan Ms. Castillo is a 73 year old woman who presented with weakness and rapidly progressing symptoms related to her advancing thyroid cancer. This included acute pneumothorax most likely due to pathologic fracture of her ninth rib. Chest tube was placed in the ED. Follow-up imaging showed pneumothorax has resolved and chest tube was out of position. Pulmonary removed chest tube. Patient transitioned to comfort measures 04/18. As of 04/19,patient unable to take PO morphine and difficult with liquid roxinol. Patient restless and with more pain concerns. Patient's MME exceeds over 80 therefore morphine drip initiated for better titration of pain. Over 45 minutes spent with family at bedside--discussed that given the rapid progression and inability to swallow/eat, as well as increasing pain requirements, unsure if patient is able to transfer to a facility ([facility] or SNF) Will discuss GIP with CM. Case management to assist with hospice and placement with hospice care -Plan for GIP eval -on morphine ggt Pleasure feeds as able Medications for comfort Possible transition to GIP Discussed with Case management Admission and Anticipated Discharge Date Admission Date: April 17, 2024 Subjective NAEO Evalauted by hospice, pending possible GIP Physical Exam Constitutional: lethargic, head hanging to right, cachectic Respiratory: normal respiratory effort, lungs clear to auscultation Cardiovascular: RRR, no murmur, no edema Results & Data Results & Data Vital Signs (Past 12 Hours) Vital Signs O2 Del Method 04/20/24 07:15 Room Air Medications Administered Home Medications Medication Instructions Recorded Confirmed Last Taken apixaban 5 mg tablet (Eliquis) 5 mg PO BID #74 tabs 10/04/22 04/17/24 Unknown dabrafenib 75 mg capsule 150 mg PO BID 10/23/23 04/17/24 Unknown pregabalin 100 mg capsule (Lyrica) 200 mg PO TID 10/23/23 04/17/24 Unknown trametinib 2 mg tablet 2 mg PO HS 10/23/23 04/17/24 Unknown dexamethasone 4 mg tablet 8 mg PO BIDM 04/17/24 04/17/24 Unknown ergocalciferol (vitamin D2) 1,250 1,250 mcg PO .EVERY 14 DAYS 04/17/24 04/17/24 Unknown mcg (50,000 unit) capsule levothyroxine 100 mcg tablet 100 mcg PO DAILYBB 04/17/24 04/17/24 Unknown lorazepam 0.5 mg tablet 0.5 mg buccal UD 04/17/24 04/17/24 Unknown morphine 30 mg tablet,extended 30 mg PO AMHS 04/17/24 04/17/24 Unknown release oxycodone 10 mg tablet 10 mg PO Q4 PRN Severe Pain (Scale 04/17/24 04/17/24 Unknown Score 7-10) Active Medications Generic Name Dose Route Start Last Admin Trade Name Freq PRN Reason Stop Dose Admin Apixaban 5 mg 04/17/24 22:30 04/20/24 08:19 Apixaban 5 Mg Tablet PO 05/17/24 22:29 Not Given BID [facility] Dexamethasone 8 mg 04/18/24 08:00 04/20/24 08:19 Dexamethasone 4 Mg Tab PO 05/18/24 07:59 Not Given BIDM ANGELINA Morphine Sulfate 100 mg in 100 mls @ 2.5 mls/hr 04/19/24 15:30 04/20/24 11:28 Morphine Sulf/Nss IV 05/03/24 15:29 2.5 mg/hr .Q40H ANGELINA 2.5 mls/hr Titration Protocol 2.5 MG/HR Levothyroxine Sodium 100 mcg 04/18/24 06:30 04/20/24 05:47 Levothyroxine Sodium 100 Mcg Tablet PO 05/18/24 06:29 Not Given DAILYBB [facility] Morphine Sulfate 30 mg 04/17/24 22:45 04/19/24 08:40 Morphine Sulfate Cr 15 Mg Tabcr PO 05/01/24 22:44 Not Given BID ANGELINA Morphine Sulfate 10 mg 04/18/24 11:22 04/19/24 12:37 Morphine Sulfate 10 Mg/0.5 Ml Udp PO 05/02/24 11:21 10 mg Q1H PRN Administration Pain or Respiratory Distress Morphine Sulfate 1 mg 04/19/24 18:22 04/20/24 14:25 Morphine Bolus From Bag IV 05/03/24 18:21 1 mg Q30M PRN Administration comfort care protocol Multi-Ingredient Mouthwash/Gargle 5 ml 04/19/24 09:00 04/20/24 08:19 First - Mouthwash Blm 119 Ml PO 05/19/24 08:59 Not Given BID ANGELINA Nystatin 5 ml 04/19/24 09:00 04/20/24 08:19 Nystatin Susp 500,000 U/5 Ml Udc PO 05/19/24 08:59 Not Given BID ANGELINA Pregabalin 200 mg 04/18/24 09:00 04/20/24 13:59 Pregabalin 100 Mg Cap PO 05/18/24 08:59 Not Given TID ANGELINA Trametinib 1 each 04/19/24 21:00 04/19/24 20:56 Trametinib Dimethyl Sulfoxide PO 05/19/24 20:59 Not Given HS ANGELINA
[2024-04-20] MEDS: LORazepam 2 MG/1 ML VIAL IV STA (15:15)
--- NOTE | 2024-04-20 15:24 | Discharge Summary ---
Discharge Summary Date of Service April 20, 2024 Principal Dx & Hospital Course #1 = Principal Diagnosis (1) Anaplastic carcinoma of thyroid: (2) Pain from bone metastases: (3) Pathologic rib fracture: (4) Pneumothorax, closed, traumatic: Plan Ms. Castillo is a 73 year old woman who presented with weakness and rapidly progressing symptoms related to her advancing thyroid cancer. This included acute pneumothorax most likely due to pathologic fracture of her ninth rib. Chest tube was placed in the ED. Follow-up imaging showed pneumothorax has resolved and chest tube was out of position. Pulmonary removed chest tube. Patient transitioned to comfort measures 04/18. As of 04/19,patient unable to take PO morphine and difficult with liquid roxinol. Patient restless and with more pain concerns. Patient's MME exceeds over 80 therefore morphine drip initiated for better titration of pain. Over 45 minutes spent with family at bedside--discussed that given the rapid progression and inability to swallow/eat, as well as increasing pain requirements, unsure if patient is able to transfer to a facility ([facility] or SNF) Will discuss GIP with CM. 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 Patient has significant mass on the right side of the neck.. Recent MRI showing progression of tumor into her spine. Since October she is not able to use her right upper extremity. Since last few days she is having some trouble with the left arm but still able to feed herself through the left hand. Patient used to ambulate with her support but last 2 days she is not even able to ambulate with her support. Family doctor is working on getting bedside commode. hospital bed and wheelchair. took her to the bathroom(as per PCP notes has attempting to carry her on his back) and patient was sitting on the commode. When went back and checked on her she complained of shortness of breath when EMS was called and brought in here. In the ER imaging studies showed right pneumothorax. She was saturating okay on room air. ER placed pneumothorax catheter and patient tolerates procedure okay. And currently catheter is placed to intermittent suction. Patient resting comfortably. Denies any chest pain. She gets chest pains on and off and attributes it to her tumor. Denies any headache. No blurred vision. Appetite is okay and eating vegan food. No sore throat. No cough. No nausea. No abdominal pain. Micturating a lot. Normal bowel movements. Hemodynamics are okay. in the room. Patient is in the process of meeting the hospice. She was planning to finish her radiation treatment tomorrow and after that planned to meet hospice but now she thinks she could not do the radiation treatment tomorrow. Past medical history. As mentioned above Past surgical history. Colonoscopy with biopsy. Mole removed from leg 1989. Nevus on left wrist removed 1990. Removal of thyroid lesion. Social history. . No smoking. Alcohol occasionally. No drug use. Family history. Uncle had pancreatic cancer. Maternal uncle had heart disorder. Father had heart attack. Brother had prostate cancer. Son had thyroid cancer. Brother had liposarcoma Admission Exam Per Admitting Provider General- Not in acute distress. Thin and frail. Head- atraumatic Eyes- PERRL. ENT- oropharynx clear Neck- Large mass seen on the right side of neck. Lungs- clear to auscultation no wheezing or crackles. pneumothorax cath seen on right side Heart- regular rate and rhythm; no murmur, no gallop. Abdomen- normal bowel sounds, soft, nontender, no distension Extremities- b.l lower ext edema present Rt>LT, No erythema seen Neuro- alert, oriented PERRL, no facial palsy; no dysarthria; minimal movement of lower extremity, No movement of right upper extremity Discharge Exam Constitutional WD/WN, vitals as above Respiratory normal respiratory effort, lungs clear to auscultation Cardiovascular RRR, no murmur, no edema Gastrointestinal (Abdomen) normal bowel sounds, soft, nontender, no hepatosplenomegaly Updated Medication List Medication Instructions Recorded Confirmed Type apixaban 5 mg tablet (Eliquis) 5 mg PO BID #74 tabs 10/04/22 04/17/24 Rx dabrafenib 75 mg capsule 150 mg PO BID 10/23/23 04/17/24 History pregabalin 100 mg capsule (Lyrica) 200 mg PO TID 10/23/23 04/17/24 History trametinib 2 mg tablet 2 mg PO HS 10/23/23 04/17/24 History dexamethasone 4 mg tablet 8 mg PO BIDM 04/17/24 04/17/24 History ergocalciferol (vitamin D2) 1,250 1,250 mcg PO .EVERY 14 DAYS 04/17/24 04/17/24 History mcg (50,000 unit) capsule levothyroxine 100 mcg tablet 100 mcg PO DAILYBB 04/17/24 04/17/24 History lorazepam 0.5 mg tablet 0.5 mg buccal UD 04/17/24 04/17/24 History morphine 30 mg tablet,extended 30 mg PO AMHS 04/17/24 04/17/24 History release oxycodone 10 mg tablet 10 mg PO Q4 PRN Severe Pain (Scale 04/17/24 04/17/24 Hist ory Score 7-10) Hospital Stay Data Consultations 04/17/24 19:52 ED Decision to Admit Stat 04/18/24 08:00 Consult Pulmonology Routine Total Time Total Time Spent Total Time Spent (In Minutes): 35
[2024-04-20 15:33] VITALS: BP 109/71; PULSE 72
[2024-04-22] MEDS ORDERED: ERGOCALCIFEROL 1250 MCG (50,000 UNITS) CAP PO SCH (09:00)
== END 2024-04-20 15:33 | disposition hospice, home (50) | DRG 644 ==
LOC: ED 17:41 → 2N 20:41 → SUATTDRO 20:41 → 2N 22:18 → 3E 04-18 20:07

== ENCOUNTER 2024-04-20 15:24 | Inpatient (IN) ==
--- OUTSIDE RECORDS SUMMARY | 2024-04-20 15:45 | External Medical Summary | Summary of Care ---
Author Name Unknown Organization [facility] Address [address] [place] [address] Phone [phone] Care Team Providers Care Assurance Senior Manager Insurance Name Role Phone Mariela Molina DO Primary Care Provider [phone] Reason for Visit * Reason Onset Date Comments Palliative Care Follow-up 04/18/2024 Encounter Details Date Type Department Care Team (Late st Contact Info) Description 04/18/2024 Telephone Palliative Medicine, [facility] [address] [facility] [address] [place] [address] Britt Mascorro MD [address] [place] [address] Palliative Care Follow-up Allergies Active Allergy Reactions Criticality Noted Date Comments Doxycycline Diarrhea,Nausea/vomiting 03/22/2021 Penicillins Nausea/vomiting 09/20/2018 documented as of this encounter (statuses as of 04/18/2024) Medications Medication Sig Dispensed Refills Start Date [...] mL 1 11/09/2023 Active Ergocalciferol 1.25 MG (71206 UT) Oral Capsule (Vitamin D2(Drisdol))Indic ations:Anaplastic thyroid [...] for Pain, Severe. 60 Tablet 04/16/2024 Active documented as of this encounter (statuses as of 04/18/2024) Active Problems Problem Noted Date Diagnosed Date [...] as of this encounter (statuses as of 04/18/2024) Resolved Problems Problem Noted Date Diagnosed Date Resolved Date Acute deep vein thrombosis ( DVT) of lower extremity 10/10/2022 09/25/2023 documented as of this encounter (statuses as of 04/18/2024) Immunizations Name Administration Dates Next Due COVID-19 mRNA, LNP-s, No Pre serve, 2-Dose Series ([employer]) 04/25/2021,10/12/2020,09/21/2020 COVID-19, MRNA-LNP, 23-24, P F, 50 [...] Telephone Encounter - Shanelle Isaac LPN - 04/18/2024 10:04 AM EDT Patient on for palliative check in today Patient currently admitted to [facility] Call to [facility] and confirmed she is currently admitted Will f/u next week documented in this encounter Plan of Treatment Upcoming Encounters Date Type Department Care Team (Late st Contact Info) Description 04/22/2024 3:00 PM EDT Telemedicine Family Practice [address] [facility] [place], [place] [address] [place] [phone] Mariela Molina DO [address] [place] [id number] 2024 2:45 PM EDT Office Visit Hematology/Oncology [facility] [place] [address] [facility] [place] [phone] Romaine Rolon MD [address] [facility] [place] [address] Scheduled Procedures Name Priority Associated Diagnoses Date/Ti [...] Documents on File Type Date Recorded 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
[2024-04-20] MEDS ORDERED: STAT IV Infusion **Titration per Protocol STA (15:52)
[2024-04-20] MEDS ORDERED: LORazepam 2 MG/1 ML VIAL IV PRN (15:52)
[2024-04-20] MEDS ORDERED: GLYCOPYRROLATE 0.2 MG/ML VIAL IV PRN (15:52)
[2024-04-20] MEDS ORDERED: MoRPHine BOLUS from BAG IV PRN (15:52)
[2024-04-20] MEDS ORDERED: ONDANSETRON INJ 2 MG/ML 2 ML VIAL IV PRN ×2 (15:52)
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
[2024-04-20 16:13] VITALS: BP 110/62; PULSE 72; RESP 14; TEMP 97.7; O2SAT 93
[2024-04-20] MEDS: LORazepam 2 MG/1 ML VIAL IV SCH (18:27)
[2024-04-20] MEDS: MoRPHine SULF/NSS 100 MG/100 ML BAG IV SCH (18:54)
--- NOTE | 2024-04-21 06:36 | Discharge Summary ---
Date of Service April 21, 2024 Admission HPI Per Admitting Provider Ms. 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 Patient admitted initially on 04/17 due to pneumothorax, however, noted to have progressive weakness. 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 Patient started on morphine drip. Patient accepted to [facility] on 04/20 for optimizing pain and end of life symptoms. Hospital Course (1) Admission for hospice care: (2) Anaplastic carcinoma of thyroid: (3) Pain from bone metastases: (4) Left rib fracture: (5) Pathologic rib fracture: Plan Ms. Castillo is a 73 year old woman who presented with weakness and rapidly progressing symptoms related to her advancing thyroid cancer now admitted to [facility]. Patient transitioned to comfort measures 04/18 with increasing pain needs over the weekend. As of 04/19,patient unable to take PO morphine and difficult with liquid roxinol. Patient restless and with more pain concerns. Patient's MME exceeds over 80 therefore morphine drip initiated for better ti tration of pain. #Hospice #Acute pain 2/2 metastatic disease #Large right neck tumor c/b RUE weakness/discomfort #Anaplastic thyroid carcinoma Admit to [facility] Resume morphine drip per comfort care protocol Patient unable to take medications by mouth -Continue with IV lorazepam for anxiety -Continue with IV Robinul for secretions PO intake for comfort Hospice following, appreciate further recommendations Dispo: contingent on pain management, suspect imminence in coming days given rapid decline and inability for PO intake (Preceding documentation as per admitting provider.) 04/21/24 Patient pronounced at 7 AM. Total time to prepare this discharge summary was less than 10 minutes. Text document was generated using [employer] voice recognition software. It may contain grammatical or spelling errors. Kindly contact undersigned for clarification of any documentation item in question.
--- NOTE | 2024-04-21 06:36 | Death Pronouncement Note ---
Date of Service April 21, 2024 Pronouncement Note Admission Date April 20, 2024 Date and Time of Date of : 04/21/24 Time of : 07:00 Additional Data Confirmation of : no pulse, no respirations, no heart sounds and pupils fixed and dilated Family: at bedside Attending physician: Deborah Kirby MD Was code activated?: No
== END 2024-04-21 11:47 | disposition expired | DRG 951 ==
LOC: 3E 15:40 → SUATTDRO 15:40